=== PATIENT | male | born 1935 | race Caucasian/White ===

== ENCOUNTER → 2018-01-18 | Outpatient (CLI) | payer OTHER ==
--- NOTE | 2018-01-18 14:02 | XR ---
Cervical spine HISTORY: Neck pain, history of trauma 5 views of the cervical spine Comparison thoracic spine same date There is multilevel spondylosis. Multilevel facet arthropathy is present. Minimal anterolisthesis gra de 1 C4-5, C5-6. Loss of disc height is greatest at C2-3, C5-6 and C6-7. Prevertebral soft tissues sh ow atherosclerotic vascular calcifications likely within the carotids. Multilevel foraminal encroachm ent present at C4-5, C3-4, C5-6 bilaterally. IMPRESSION: Degenerative disc disease and facet arthropathy.
--- NOTE | 2018-01-18 14:07 | XR ---
Lumbosacral spine HISTORY: Low back pain 5 views of the lumbosacral spine There is multilevel spondylosis. Lumbar vertebral bodies show preserved height. Loss of disc height i s present at the intervertebral levels. No evident spondylolysis. Multilevel vacuum phenomenon presen t at the intervertebral levels. Minimal anterolisthesis grade 1 L4-5, retrolisthesis grade 1 L3-4, L2 -3, L1-2, T12-L1. Sclerosis present in the posterior elements. Dense vascular calcifications present in the aortoiliac distribution. IMPRESSION: Degenerative disc disease and facet arthropathy.
--- NOTE | 2018-01-18 14:08 | XR ---
Thoracic spine HISTORY: Back pain, trauma 3 views of the thoracic spine Multilevel spondylosis is present. Disc spaces show mild loss of height at the midthoracic level. Tho racic vertebral bodies show preserved height, alignment, bone mineralization. There may be a slight s june curvature. IMPRESSION: Degenerative disc disease. No fracture or subluxation.
--- NOTE | 2018-01-18 14:13 | XR ---
Right hand and right wrist HISTORY: Trauma and pain 3 views of the right hand correlated to 4 views right wrist same day Small periarticular ossific densities are present in the distribution the level of the metacarpophala ngeal joints of the second, third, fifth digits. Alignment, bone mineralization, joint spaces are jose e ntained. 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 There is scapholunate dissociation. IMPRESSION: No acute fracture or dislocation. Scapholunate dissociation of indeterminate age. Conside r wrist MRI. 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
== END | disposition home or self-care (01) ==
LOC: RADXRMAIN 10:12
PROVIDERS: ATTEND Nurse Practitioner Women's Health
DX: M51.34 Other intervertebral disc degeneration, thoracic region (principal); M51.37 Other intervertebral disc degeneration, lumbosacral region; M50.30 Other cervical disc degeneration, unspecified cervical region; M46.97 Unspecified inflammatory spondylopathy, lumbosacral region; M46.92 Unspecified inflammatory spondylopathy, cervical region; M25.531 Pain in right wrist; M79.641 Pain in right hand
CPT/HCPCS: 72050; 72072; 72110

== ENCOUNTER → 2018-02-02 | Outpatient (CLI) | payer MEDICARE, BC ==
--- NOTE | 2018-02-02 11:09 | US ---
EXAMINATION TYPE: US carotid duplex BILAT DATE OF EXAM: 02/02/2018 COMPARISON: cervical spine xray CLINICAL HISTORY: I65.29 occlusion and stenosis of unspecified. EXAM MEASUREMENTS: RIGHT: Peak Systolic Velocity (PSV) cm/sec ----- Right CCA: 73.8 ----- Right ICA: 92.2 ----- Right ECA: 84.0 ICA/CCA ratio: 1.25 RIGHT: End Diastole cm/sec ----- Right CCA: 12.0 ----- Right ICA: 26.4 ----- Right ECA: 5.3 LEFT: Peak Systolic Velocity (PSV) cm/sec ----- Left CCA: 71.1 ----- Left ICA: 102 ----- Left ECA: 92.5 ICA/CCA ratio: 1.43 LEFT: End Diastole cm/sec ----- Left CCA: 18.7 ----- Left ICA: 32.3 ----- Left ECA: 12.4 VERTEBRALS (direction of flow): Right Vertebral: Antegrade Left Vertebral: Antegrade Rhythm: Normal No significant stenosis seen, no elevated velocities. Extensive calcifications throughout. There is some filling of the left internal carotid artery acoustic window compatible with turbulent f low. IMPRESSION: 1. No significant flow-limiting stenosis. 2. Intimal thickening, atheromatous plaquing with shadowing. Criteria for Assigning % of Stenosis / Diameter reduction (Estimation based on the indirect measurements of the internal carotid artery velocities (ICA PSV). 1. Normal (no stenosis)=ICA PSV < 125 cm/s: ratio < 2.0: ICA EDV<40 cm/s. 2. Less than 50% stenosis=ICA PSV < 125 cm/s: ratio < 2.0: ICA EDV<40 cm/s. 3. 50 to 69% stenosis=ICA PSV of 125 to 230 cm/s: ration 2.0 ? 4.0: ICA EDV 40-100 cm/s. 4. Greater than 70% stenosis to near occlusion= ICA PSV > 230 cm/s: ratio > 4.0: ICA EDV > 100 cm/s. 5. Near occlusion= ICA PSV velocities may be low or undetectable: variable ratio and ICA EDV. 6. Total occlusion=unable to detect flow.
== END | disposition home or self-care (01) ==
LOC: RADUSWWP 10:19
PROVIDERS: ATTEND Family Medicine
DX: I65.22 Occlusion and stenosis of left carotid artery (principal); Z88.0 Allergy status to penicillin
CPT/HCPCS: 93880

== ENCOUNTER → 2019-04-12 | Outpatient (CLI) | payer MEDICARE, BC ==
--- NOTE | 2019-04-12 13:34 | XR ---
EXAMINATION TYPE: XR chest 2V DATE OF EXAM: 04/12/2019 COMPARISON: NONE TECHNIQUE: PA and lateral views submitted. HISTORY: Pain FINDINGS: The lungs are clear and there is no pneumothorax, pleural effusion, or focal pneumonia. Elevation t he right hemidiaphragm. Hyperinflation suggests COPD. Degenerative changes spine. Sclerosis overlying the heart on the lateral view is indeterminant. Arthropathy of the shoulder on the right. IMPRESSION: 1. No acute process. There is sclerosis overlying the heart on the lateral view which is of indetermi fabricio etiology. Follow-up CT of the chest could BE obtained as clinically warranted.
== END | disposition home or self-care (01) ==
LOC: RADXRMAIN 13:09
PROVIDERS: ATTEND Family Medicine
DX: I25.10 Atherosclerotic heart disease of native coronary artery without angina pectoris (principal)
CPT/HCPCS: 71046

== ENCOUNTER 2020-05-10 10:54 | Inpatient (IN) | payer MEDICARE, BC ==
[2020-05-10] MEDS ORDERED: SODIUM CHLORIDE 0.9% 500 ML 500 ML IV ONE (11:14)
--- NOTE | 2020-05-10 11:27 | ED ---
General Adult HPI - General Source: patient Mode of arrival: EMS Limitations: no limitations <Henrietta Grimes - Last Filed: 05/10/20 15:11> <Nicolasa Lujan - Last Filed: 05/15/20 09:43> - General Chief complaint: Weakness Stated complaint: Weakness,Altered Time Seen by Provider: 05/10/20 10:59 - History of Present Illness Initial comments: Patient is an 84-year-old male, with history of hypertension, thyroid disorder, mouth cancer, presenting to the emergency department via EMS from [facility] for altered mental status. The [place] reports stated that patient has been feeling weaker the last 2-3 days and not eating as much as he normally would. Today he seemed to be altered which is not his baseline, he was moving around his food but not eating and he was not answering questions appropriately so they called EMS. Patient is aware of his name and date of however does not know the month or year or who is President. Patient denies having any pain anywhere, no shortness of breath, no recent fevers. He denies any abdominal pain, nausea, vomiting. He denies any changes in his medications. There is no other family members here at this time to provide additional history. Patient's blood glucose in the EMS was 123, his vital signs upon arrival temperature is 96.9, pulse 80, 16 respirations, 173/83, 90% on room air. (Henrietta Grimes) - Related Data Home Medications Medication Instructions Recorded Confirmed Cyanocobalamin (Vitamin B-12) 1,000 mcg PO DAILY 05/10/20 05/10/20 [Vitamin B-12] Levothyroxine Sodium [Synthroid] 50 mcg PO DAILY 05/10/20 05/10/20 Loratadine [Claritin] 10 mg PO DAILY 05/10/20 05/10/20 Memantine HCl/Donepezil HCl 1 cap PO DAILY 05/10/20 05/10/20 [Namzaric 28 mg-10 mg Capsule] Metoprolol Tartrate [Lopressor] 25 mg PO BID 05/10/20 05/10/20 Omeprazole 40 mg PO DAILY 05/10/20 05/10/20 Allergies Allergy/AdvReac Type Severity Reaction Status Date / Time Penicillins Allergy Unknown Verified 05/10/20 13:54 Review of Systems ROS Other: All systems not noted in ROS Statement are negative. <Henrietta Grimes - Last Filed: 05/10/20 15:11> ROS Other: All systems not noted in ROS Statement are negative. <Nicolasa Lujan - Last Filed: 05/15/20 09:43> ROS Statement: Those systems with pertinent positive or pertinent negative responses have been documented in the HPI. 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 Patient is nontoxic and in no acu te distress, does seem mildly confused. HEAD: Atraumatic, normocephalic. EYES: Pupils equal round and reactive to light, extraocular movements intact, sclera anicteric, conjunctiva are normal. Eyelids were unremarkable. ENT: TMs normal, nares patent, oropharynx clear without exudates. Moist mucous membranes. NECK: Normal range of motion, supple without lymphadenopathy or JVD. LUNGS: Unlabored respirations. Mild scattered wheezes in the lower lobes, decreased sounds on the right. HEART: Regular rate and rhythm without murmurs, rubs or gallops. ABDOMEN: Soft, nontender, normoactive bowel sounds. No guarding, no rebound. No masses appreciated. : Deferred MUSCULOSKELETAL: Normal extremities with adequate strength and normal range of motion, no pitting or edema. No clubbing or cyanosis. 5 out of 5 strength upper and lower extremities bilaterally, senior consulting manager strength is normal bilaterally. NEUROLOGICAL: Patient is alert and oriented x 1-2. Does know self, date of , location however does not know year or month or the president. Motor and sensory are also intact. Cranial nerves II through XII grossly intact. Symmetrical smile. Normal speech, normal gait. PSYCH: Normal mood, normal affect, seems altered. SKIN: Warm, Dry, normal turgor, no rashes or lesions noted. (Henrietta Grimes) Course Vital Signs 05/10/20 05/10/20 05/10/20 11:03 11:10 11:30 Temperature 96.9 F L Pulse Rate 80 80 Pulse Rate [ Pulse Oximetery ] Respiratory 16 16 Rate Blood Pressure 173/83 178/83 Blood Pressure [Left Arm] O2 Sat by Pulse 90 L 94 L Oximetry 05/10/20 05/10/20 05/10/20 13:00 13:30 14:30 Temperature Pulse Rate 67 73 80 Pulse Rate [ Pulse Oximetery ] Respiratory 14 18 22 Rate Blood Pressure 143/80 164/113 158/82 Blood Pressure [Left Arm] O2 Sat by Pulse 93 L 93 L 92 L Oximetry 05/10/20 05/10/20 05/10/20 15:00 15:30 16:00 Temperature Pulse Rate 80 87 65 Pulse Rate [ Pulse Oximetery ] Respiratory 17 20 20 Rate Blood Pressure 127/80 140/82 134/65 Blood Pressure [Left Arm] O2 Sat by Pulse 93 L 66 L 96 Oximetry 05/10/20 05/10/20 05/10/20 16:30 17:30 18:00 Temperature Pulse Rate 66 67 61 Pulse Rate [ Pulse Oximetery ] Respiratory 18 16 13 Rate Blood Pressure 144/82 126/69 126/69 Blood Pressure [Left Arm] O2 Sat by Pulse 74 L 91 L 93 L Oximetry 05/10/20 05/10/20 05/10/20 19:00 20:00 22:55 Temperature 97.3 F L 97 F L Pulse Rate 60 65 Pulse Rate [ 60 Pulse Oximetery ] Respiratory 18 20 Rate Blood Pressure 131/58 152/69 Blood Pressure 131/58 [Left Arm] O2 Sat by Pulse 92 L 92 L 93 L Oximetry 05/11/20 02:00 Temperature 97.0 F L Pulse Rate Pulse Rate [ 92 Pulse Oximetery ] Respiratory 18 Rate Blood Pressure Blood Pressure 131/58 [Left Arm] O2 Sat by Pulse 93 L Oximetry EKG Findings - EKG Comments: EKG Findings:: Normal sinus rhythm, rightward axis, septal infarct age undetermined, no signs of an acute process, ventricular rate 77, ND interval 206, QT 410. <SydneyHenrietta L - Last Filed: 05/10/20 15:11> Medical Decision Making - Lab Data Result diagrams: 05/10/20 11:23 05/10/20 11:23 <SydneyHenrietta - Last Filed: 05/10/20 15:11> - Lab Data Result diagrams: 05/13/20 06:38 05/13/20 06:38 <LeNicolasa Cristi - Last Filed: 05/15/20 09:43> - Medical Decision Making Patient is an 84-year-old male presenting from [facility] via EMS for altered mental status and weakness for the past 2 days. He is an alert and oriented times self, location but is unaware of the date, year or president. He is afebrile. His exam reveals no acute findings, no neuro deficits. EKG shows no acute process. Lab work shows a normal white count, creatinine is at 2.30, BUN is 59, GFR is 25, I do not have any prior lab work to compare this to. According to his son, he has no known kidney disease. Troponin is negative, sodium potassium is normal, urine tox screen is negative, urine shows no evidence of infection. Brain CT shows no acute intercranial hemorrhage or midline shift. There are chronic changes. Chest x-ray reveals new bilateral multifocal acute infiltrates, right greater than left. Cold infection should be considered. I did do a rapid Covid test which did return positive. Patient was given some fluids. Patient will be admitted for altered mental status, acute kidney injury, hypoxia, positive Covid. Patient accepted by Dr. Cadena. Patient is in agreement with this plan of care. I did update his son with the plan. Case discussed with Dr. Lujan. (Henrietta Grimes) I was available for consultation in the emergency department. The history and physical exam were done by the midlevel provider. I was consulted for this patients care. I reviewed the case with the midlevel provider and based on their presentation of the patient, I agree with the assessment, medical decision making and plan of care as documented. Chart was dictated using [employer] dictation software. Attempts were made to correct any dictation errors however some typographical errors may persist. Patient seen during the Covid-19 pandemic. (Nicolasa Lujan) - Lab Data Lab Results 05/10/20 05/10/20 05/10/20 Range/Units 11:23 11:23 11:23 WBC 5.5 (3.8-10.6) k/uL RBC 5.63 (4.30-5.90) m/uL Hgb 16.0 (13.0-17.5) gm/dL Hct 48.8 (39.0-53.0) % MCV 86.7 (80.0-100.0) fL MCH 28.5 (25.0-35.0) pg MCHC 32.8 (31.0-37.0) g/dL RDW 14.2 (11.5-15.5) % Plt Count (150-450) k/uL MPV 12.0 Lymphocytes % 14 % Monocytes % 6 % Eosinophils % 1 % Basophils % 1 % Neutrophils # 4.2 (1.3-7.7) k/uL Lymphocytes # 0.8 L (1.0-4.8) k/uL Monocytes # 0.3 (0-1.0) k/uL Eosinophils # 0.1 (0-0.7) k/uL Basophils # 0.1 (0-0.2) k/uL Manual Slide Review Performed RBC Morphology Normal PT 11.3 (9.0-12.0) sec INR 1.1 (<1.2) APTT 20.9 L (22.0-30.0) sec Sodium (137-145) mmol/L Potassium (3.5-5.1) mmol/L Chloride (98-107) mmol/L Carbon Dioxide (22-30) mmol/L Anion Gap mmol/L BUN (9-20) mg/dL Creatinine (0.66-1.25) mg/dL Est GFR (CKD-EPI)AfAm (>60 ml/min/1.73 sqM) Est GFR (CKD-EPI)NonAf (>60 ml/min/1.73 sqM) Glucose (74-99) mg/dL Calcium (8.4-10.2) mg/dL Total Bilirubin (0.2-1.3) mg/dL AST (17-59) U/L ALT (4-49) U/L Alkaline Phosphatase (38-126) U/L Creatine Kinase (55-170) U/L Troponin I (0.000-0.034) ng/mL Total Protein (6.3-8.2) g/dL Albumin (3.5-5.0) g/dL Urine Color Yellow Urine Appearance Clear (Clear) Urine pH 5.5 (5.0-8.0) Ur Specific [place] 1.020 (1.001-1.035) Urine Protein 1+ H (Negative) Urine Glucose (UA) Negative (Negative) Urine Ketones 1+ H (Negative) Urine Blood Small H (Negative) Urine Nitrite Negative (Negative) Urine Bilirubin Negative (Negative) Urine Urobilinogen <2.0 (<2.0) mg/dL Ur Leukocyte Esterase Negative (Negative) Urine RBC <1 (0-5) /hpf Urine WBC 1 (0-5) /hpf Ur Squamous Epith Cells <1 (0-4) /hpf Urine Mucus Rare H (None) /hpf Urine Opiates Screen Not Detected (NotDetected) Ur Oxycodone Screen Not Detected (NotDetected) Urine Methadone Screen Not Detected (NotDetected) Ur Propoxyphene Screen Not Detected (NotDetected) Ur Barbiturates Screen Not Detected (NotDetected) U Tricyclic Antidepress Not Detected (NotDetected) Ur Phencyclidine Scrn Not Detected (NotDetected) Ur Amphetamines Screen Not Detected (NotDetected) U Methamphetamines Scrn Not Detected (NotDetected) U Benzodiazepines Scrn Not Detected (NotDetected) Urine Cocaine Screen Not Detected (NotDetected) U Marijuana (THC) Screen Not Detected (NotDetected) Coronavirus (PCR) (Not Detectd) 05/10/20 05/10/20 05/10/20 Range/Units 11:23 11:23 13:25 WBC (3.8-10.6) k/uL RBC (4.30-5.90) m/uL Hgb (13.0-17.5) gm/dL Hct (39.0-53.0) % MCV (80.0-100.0) fL MCH (25.0-35.0) pg MCHC (31.0-37.0) g/dL RDW (11.5-15.5) % Plt Count (150-450) k/uL MPV Lymphocytes % % Monocytes % % Eosinophils % % Basophils % % Neutrophils # (1.3-7.7) k/uL Lymphocytes # (1.0-4.8) k/uL Monocytes # (0-1.0) k/uL Eosinophils # (0-0.7) k/uL Basophils # (0-0.2) k/uL Manual Slide Review RBC Morphology PT (9.0-12.0) sec INR (<1.2) APTT (22.0-30.0) sec Sodium 141 (137-145) mmol/L Potassium 4.9 (3.5-5.1) mmol/L Chloride 106 (98-107) mmol/L Carbon Dioxide 20 L (22-30) mmol/L Anion Gap 15 mmol/L BUN 59 H (9-20) mg/dL Creatinine 2.30 H (0.66-1.25) mg/dL Est GFR (CKD-EPI)AfAm 29 (>60 ml/min/1.73 sqM) Est GFR (CKD-EPI)NonAf 25 (>60 ml/min/1.73 sqM) Glucose 98 (74-99) mg/dL Calcium 9.6 (8.4-10.2) mg/dL Total Bilirubin 1.7 H (0.2-1.3) mg/dL AST 37 (17-59) U/L ALT 27 (4-49) U/L Alkaline Phosphatase 132 H (38-126) U/L Creatine Kinase 95 (55-170) U/L Troponin I <0.012 (0.000-0.034) ng/mL Total Protein 7.4 (6.3-8.2) g/dL Albumin 4.1 (3.5-5.0) g/dL Urine Color Urine Appearance (Clear) Urine pH (5.0-8.0) Ur Specific [place] (1.001-1.035) Urine Protein (Negative) Urine Glucose (UA) (Negative) Urine Ketones (Negative) Urine Blood (Negative) Urine Nitrite (Negative) Urine Bilirubin (Negative) Urine Urobilinogen (<2.0) mg/dL Ur Leukocyte Esterase (Negative) Urine RBC (0-5) /hpf Urine WBC (0-5) /hpf Ur Squamous Epith Cells (0-4) /hpf Urine Mucus (None) /hpf Urine Opiates Screen (NotDetected) Ur Oxycodone Screen (NotDetected) Urine Methadone Screen (NotDetected) Ur Propoxyphene Screen (NotDetected) Ur Barbiturates Screen (NotDetected) U Tricyclic Antidepress (NotDetected) Ur Phencyclidine Scrn (NotDetected) Ur Amphetamines Screen (NotDetected) U Methamphetamines Scrn (NotDetected) U Benzodiazepines Scrn (NotDetected) Urine Cocaine Screen (NotDetected) U Marijuana (THC) Screen (NotDetected) Coronavirus (PCR) Detected A (Not Detectd) Disposition Decision Date: 05/10/20 Decision Time: 13:56 <Henrietta Grimes - Last Filed: 05/10/20 15:11> <Nicolasa Lujan - Last Filed: 05/15/20 09:43> Clinical Impression: Altered mental status, [place] (acute kidney injury), COVID-19 virus detected, Hypoxia Disposition: ADMITTED IP TO THIS HOSP Condition: Good
[2020-05-10 12:22] LABS: Albumin 4.1 g/dL (3.5-5.0); Calcium 9.6 mg/dL (8.4-10.2); Potassium 4.9 mmol/L (3.5-5.1); Total Bilirubin 1.7 mg/dL (0.2-1.3); Total Protein 7.4 g/dL (6.3-8.2)
[2020-05-10 12:27] LABS: Appearance,Urine Clear (Clear); Bilirubin,Urine Negative (Negative); Blood,Urine Small (Negative); Color,Urine Yellow; Glucose,Urine (UA) Negative (Negative); Ketones,Urine 1+ (Negative); Leukocyte Esterase,Urine Negative (Negative); Mucus,Urine Rare /hpf; Nitrite,Urine Negative (Negative); PH, Urine 5.5 (5.0-8.0); Protein,Urine 1+ (Negative); RBC,Urine <1 /hpf (0-5); Squamous Epithelial Cell,Urine <1 /hpf (0-4); Urobilinogen,Urine <2.0 mg/dL (<2.0); WBC,Urine 1 /hpf (0-5)
--- NOTE | 2020-05-10 12:28 | CT ---
EXAMINATION TYPE: CT brain wo con DATE OF EXAM: 05/10/2020 HISTORY: ALtered mental status and increased weakness CT DLP: 1129.4 mGycm. Automated Exposure Control for Dose Reduction was Utilized. TECHNIQUE: CT scan of the head is performed without contrast. COMPARISON: None. FINDINGS: There is no acute intracranial hemorrhage or midline shift identified. There is diffuse v entricular and sulcal prominence consistent with diffuse age-related cerebral atrophy. There is low- attenuation in the periventricular white matter consistent with chronic small vessel ischemic change. Scleral calcification bilateral globes. Patchy cerumen right external auditory canal. Mild mucosal thickening left maxillary sinus. IMPRESSION: No acute intracranial hemorrhage or midline shift. There is moderate diffuse cerebral a trophy and mild chronic small vessel ischemic change noted.
--- NOTE | 2020-05-10 12:47 | XR ---
EXAMINATION TYPE: XR chest 2V DATE OF EXAM: 05/10/2020 COMPARISON: Chest x-ray April 12, 2019 HISTORY: Altered mental status and weakness. TECHNIQUE: Frontal and lateral views of the chest are obtained. FINDINGS: There a reticular interstitial changes bilaterally with increased opacities right greater than left greater in the periphery. No pleural effusion or pneumothorax seen bilaterally. The cardiac silhouette size is upper limits of normal currently. The osseous structures are intact. IMPRESSION: New bilateral multifocal acute infiltrates right greater than left on background chronic parenchymal changes. Covid-19 infection needs to be strongly considered.
[2020-05-10 12:48] LABS: Amphetamine Screen,Urine Not Detected (NotDetected); Barbiturate Screen,Urine Not Detected (NotDetected); Benzodiazepines Screen,Urine Not Detected (NotDetected); Cocaine Screen,Urine Not Detected (NotDetected); Methadone Screen, Urine Not Detected (NotDetected); Opiate Screen,Urine Not Detected (NotDetected); Oxycodone Screen, Urine Not Detected (NotDetected); Phencyclidine Screen,Urine Not Detected (NotDetected); Tricyclic Antidepressant,Urine Not Detected (NotDetected); Urn Cannabinoid Scrn Not Detected (NotDetected)
[2020-05-10 12:54] LABS: INR 1.1 (<1.2); Prothrombin Time 11.3 sec (9.0-12.0)
[2020-05-10 12:55] LABS: Partial Thromboplastin Time 20.9 sec (22.0-30.0)
[2020-05-10 13:00] LABS: Basophils # (A) 0.1 k/uL (0-0.2); Basophils % (A) 1 %; Eosinophils # (A) 0.1 k/uL (0-0.7); Eosinophils % (A) 1 %; HCT 48.8 % (39.0-53.0); Lymphocytes # (A) 0.8 k/uL (1.0-4.8); Lymphocytes % (A) 14 %; MCH 28.5 pg (25.0-35.0); MCHC 32.8 g/dL (31.0-37.0); MCV 86.7 fL (80.0-100.0); Monocytes # (A) 0.3 k/uL (0-1.0); Monocytes % (A) 6 %; Neutrophils # (A) 4.2 k/uL (1.3-7.7); RBC 5.63 m/uL (4.30-5.90); RDW 14.2 % (11.5-15.5); WBC 5.5 k/uL (3.8-10.6)
[2020-05-10] MEDS ORDERED: NALOXONE 0.4 MG/ML 1 ML VIAL IV PRN (13:56)
[2020-05-10] MEDS ORDERED: ACETAMINOPHEN TAB 325 MG TAB PO PRN (13:56)
[2020-05-10] MEDS: SODIUM CHLORIDE 0.9% 1,000 ML IV SCH (15:55)
[2020-05-11] MEDS: SODIUM CHLORIDE 0.9% 1,000 ML IV SCH ×2 (04:17→20:27)
--- NOTE | 2020-05-11 11:16 | P.CNPUL ---
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 dementia and Alzheimer's disease, his BUN/creatinine is 59 and 2.3, warner virus PCR positive, CT head chronic old cerebral atrophic and small vascular changes were noted, chest x-ray showed bilateral multifocal patchy infiltrate right side more than the left side consistent with covid 19 pneumonia Review of Systems All systems: negative Past Medical History Past Medical History: Cancer, Hyperlipidemia, Hypertension, Thyroid Disorder Additional Past Medical History / Comment(s): HX OF MOUTH CANCER, HX GOUT, LEFT INGUINAL HERNIA History of Any Multi-Drug Resistant Organisms: None Reported Additional Past Surgical History / Comment(s): SX TO REMOVE ORAL CA, EGD WITH DILATION, ABHAY CATARACT Past Anesthesia/Blood Transfusion Reactions: No Reported Reaction Past Alcohol Use History: Occasional Past Drug Use History: None Reported - Past Family History Mother Family Medical History: No Reported History Medications and Allergies Home Medications Medication Instructions Recorded Confirmed Type Cyanocobalamin (Vitamin B-12) 1,000 mcg PO DAILY 05/10/20 05/10/20 History [Vitamin B-12] Levothyroxine Sodium [Synthroid] 50 mcg PO DAILY 05/10/20 05/10/20 History Loratadine [Claritin] 10 mg PO DAILY 05/10/20 05/10/20 History Memantine HCl/Donepezil HCl 1 cap PO DAILY 05/10/20 05/10/20 History [Namzaric 28 mg-10 mg Capsule] Metoprolol Tartrate [Lopressor] 25 mg PO BID 05/10/20 05/10/20 History Omeprazole 40 mg PO DAILY 05/10/20 05/10/20 History Allergies Allergy/AdvReac Type Severity Reaction Status Date / Time Penicillins Allergy Unknown Verified 05/10/20 13:54 Physical Exam Vitals: Vital Signs Temp Pulse Pulse Resp BP BP Pulse Ox 11/29/20 08:00 97.9 F 70 17 138/73 93 L 05/11/20 02:00 97.0 F L 92 18 131/58 93 L 05/10/20 22:55 97 F L 65 152/69 93 L 05/10/20 20:00 97.3 F L 60 20 131/58 92 L 05/10/20 19:00 60 18 131/58 92 L 05/10/20 18:00 61 13 126/69 93 L 05/10/20 17:30 67 16 126/69 91 L 05/10/20 16:30 66 18 144/82 74 L 05/10/20 16:00 65 20 134/65 96 05/10/20 15:30 87 20 140/82 66 L 05/10/20 15:00 80 17 127/80 93 L 05/10/20 14:30 80 22 158/82 92 L 05/10/20 13:30 73 18 164/113 93 L 05/10/20 13:00 67 14 143/80 93 L 05/10/20 11:30 80 16 178/83 94 L 05/10/20 11:10 90 L - Constitutional General appearance: average body habitus, cooperative, disheveled, mild distress - EENT Eyes: PERRLA Ears: bilateral: normal - Neck Carotids: bilateral: upstroke normal Thyroid: bilateral: normal size - Respiratory Respiratory: bilateral: diminished - Cardiovascular Rhythm: regular Heart sounds: normal: S1, S2 - Gastrointestinal General gastrointestinal: normal bowel sounds, soft - Integumentary Integumentary: decreased turgor - Neurologic Neurologic: CNII-XII intact - Musculoskeletal Musculoskeletal: gait normal, generalized weakness, strength equal bilaterally Results - Laboratory Findings CBC and BMP: 05/10/20 11:23 05/10/20 11:23 PT/INR, D-dimer PT 11.3 sec (9.0-12.0) 05/10/20 11:23 INR 1.1 (<1.2) 05/10/20 11:23 Abnormal lab findings: Abnormal Labs 05/10/20 05/10/20 05/10/20 11:23 11:23 11:23 Lymphocytes # 0.8 L APTT 20.9 L Carbon Dioxide BUN Creatinine Total Bilirubin Alkaline Phosphatase Urine Protein 1+ H Urine Ketones 1+ H Urine Blood Small H Urine Mucus Rare H Coronavirus (PCR) 05/10/20 05/10/20 11:23 13:25 Lymphocytes # APTT Carbon Dioxide 20 L BUN 59 H Creatinine 2.30 H Total Bilirubin 1.7 H Alkaline Phosphatase 132 H Urine Protein Urine Ketones Urine Blood Urine Mucus Coronavirus (PCR) Detected A - Diagnostic Findings Chest x-ray: report reviewed, image reviewed (Pending as noted above) Assessment and Plan Assessment: Acute hypoxic history failure [place] in 19 pneumonia bilateral Acute kidney injury likely related to intravascular depletion and dehydration Hypertension hypertensive cardiovascular disease Hypothyroidism History of oral cancer Plan: Check inflammatory parameters Deep breathing sense incentive spirometry Prone positioning IV Decadron IV Remdesivir for 5 days Supplemental oxygen Gentle rehydration Monitor renal functions closely Anticoagulation with Lovenox Check inflammatory parameters Zinc vitamin C and vitamin D supplements Further recommendations pending plan of care as per clinical response of patient Time with Patient: Greater than 30
--- NOTE | 2020-05-11 11:21 | P.HPIM ---
History of Present Illness H&P Date: 05/11/20 Chief Complaint: Weakness and anorexia,COVID 19 This is a pleasant 84-year-old male who [facility]. He is brought over the EMS for anorexia and low-grade fever along with weakness. He is somewhat confused when he is in the emergency room as he is today. Initial evaluation showed some mild hypoxia with O2 saturation 90%. Blood pressure remained stable. He is been afebrile. He was found to be in mild renal failure with a BUN of 59 creatinine 2.3, urine showed +1 ketones, and he was positive for warner virus the emergency room. This a.m., the patient is somewhat confused. Answers my questions. He has known dementia and hypothyroidism. Chest x-ray showed Covid pneumonia type picture. CT brain showed no acute intracranial hemorrhage but diffuse cerebral atrophy and mild chronic small vessel ischemic change. The patient denies any chest pains or pressures or shortness of breath this time. Repeat a.m. labs are pending. His next of kin, friend is also my patient, and was also admitted with Covid 19 pneumonia yesterday. Review of Systems ROS unobtainable: due to mental status Past Medical History Past Medical History: Cancer, Hyperlipidemia, Hypertension, Thyroid Disorder Additional Past Medical History / Comment(s): HX OF MOUTH CANCER, HX GOUT, LEFT INGUINAL HERNIA History of Any Multi-Drug Resistant Organisms: None Reported Additional Past Surgical History / Comment(s): SX TO REMOVE ORAL CA, EGD WITH DILATION, ABHAY CATARACT Past Anesthesia/Blood Transfusion Reactions: No Reported Reaction Past Alcohol Use History: Occasional Past Drug Use History: None Reported - Past Family History Mother Family Medical History: No Reported History Medications and Allergies Home Medications Medication Instructions Recorded Confirmed Type Cyanocobalamin (Vitamin B-12) 1,000 mcg PO DAILY 05/10/20 05/10/20 History [Vitamin B-12] Levothyroxine Sodium [Synthroid] 50 mcg PO DAILY 05/10/20 05/10/20 History Loratadine [Claritin] 10 mg PO DAILY 05/10/20 05/10/20 History Memantine HCl/Donepezil HCl 1 cap PO DAILY 05/10/20 05/10/20 History [Namzaric 28 mg-10 mg Capsule] Metoprolol Tartrate [Lopressor] 25 mg PO BID 05/10/20 05/10/20 History Omeprazole 40 mg PO DAILY 05/10/20 05/10/20 History Allergies Allergy/AdvReac Type Severity Reaction Status Date / Time Penicillins Allergy Unknown Verified 05/10/20 13:54 Physical Exam Vitals: Vital Signs Temp Pulse Pulse Resp BP BP Pulse Ox 05/11/20 08:00 97.9 F 70 17 138/73 93 L 05/11/20 02:00 97.0 F L 92 18 131/58 93 L 05/10/20 22:55 97 F L 65 152/69 93 L 05/10/20 20:00 97.3 F L 60 20 131/58 92 L 05/10/20 19:00 60 18 131/58 92 L 05/10/20 18:00 61 13 126/69 93 L 05/10/20 17:30 67 16 126/69 91 L 05/10/20 16:30 66 18 144/82 74 L 05/10/20 16:00 65 20 134/65 96 05/10/20 15:30 87 20 140/82 66 L 05/10/20 15:00 80 17 127/80 93 L 05/10/20 14:30 80 22 158/82 92 L 05/10/20 13:30 73 18 164/113 93 L 05/10/20 13:00 67 14 143/80 93 L 05/10/20 11:30 80 16 178/83 94 L 05/10/20 11:10 90 L GENERAL: Confused, thin male, with some perspiration noted. HEAD: Atraumatic, normocephalic. EYES: Pupils equal round and reactive to light, extraocular movements intact, sclera anicteric, conjunctiva are normal. ENT:nares patent, oropharynx clear without exudates. Moist mucous membranes. NECK: Normal range of motion, supple without lymphadenopathy or JVD, no thyromegaly LUNGS: Breath sounds coarse bilateral basilar rhonchi bilaterally worse on the left.. HEART: Regular rate and rhythm without murmurs, rubs or gallops.S1S2 Normal ABDOMEN: Soft, nontender, normoactive bowel sounds. No guarding, no rebound. No masses appreciated. EXTREMITIES: Normal range of motion, no pitting or edema. No clubbing or cyanosis. NEUROLOGICAL: Cranial nerves II through XII grossly intact. Speech is normal in content, he has underlying dementia that is well-known. PSYCH: Normal mood, normal affect. SKIN: Warm, Dry, normal turgor, no rashes or lesions noted. Results CBC & Chem 7: 05/10/20 11:23 05/10/20 11:23 Labs: Abnormal Lab Results - Last 24 Hours (Table) 05/10/20 05/10/20 05/10/20 Range/Units 11:23 11:23 11:23 Lymphocytes # 0.8 L (1.0-4.8) k/uL APTT 20.9 L (22.0-30.0) sec Carbon Dioxide (22-30) mmol/L BUN (9-20) mg/dL Creatinine (0.66-1.25) mg/dL Total Bilirubin (0.2-1.3) mg/dL Alkaline Phosphatase (38-126) U/L Urine Protein 1+ H (Negative) Urine Ketones 1+ H (Negative) Urine Blood Small H (Negative) Urine Mucus Rare H (None) /hpf Coronavirus (PCR) (Not Detectd) 05/10/20 05/10/20 Range/Units 11:23 13:25 Lymphocytes # (1.0-4.8) k/uL APTT (22.0-30.0) sec Carbon Dioxide 20 L (22-30) mmol/L BUN 59 H (9-20) mg/dL Creatinine 2.30 H (0.66-1.25) mg/dL Total Bilirubin 1.7 H (0.2-1.3) mg/dL Alkaline Phosphatase 132 H (38-126) U/L Urine Protein (Negative) Urine Ketones (Negative) Urine Blood (Negative) Urine Mucus (None) /hpf Coronavirus (PCR) Detected A (Not Detectd) Chest x-ray: report reviewed (COVID pneumonia) CT Scan - head: report reviewed (no acute abnormality) Thrombosis Risk Factor Assmnt - DVT/VTE Prophylaxis DVT/VTE Prophylaxis: Pharmacologic Prophylaxis ordered Assessment and Plan (1) Pneumonia due to COVID-19 virus Current Visit: Yes Status: Acute Code(s): U07.1 - COVID-19; J12.89 - OTHER VIRAL PNEUMONIA SNOMED Code(s): 735357424969371256 (2) D[place] (acute kidney injury) Current Visit: Yes Status: Acute Code(s): N17.9 - ACUTE KIDNEY FAILURE, UNSPECIFIED SNOMED Code(s): 02466004 (3) Unspecified dementia with behavioral disturbance Current Visit: Yes Status: Acute Code(s): F03.91 - UNSPECIFIED DEMENTIA WITH BEHAVIORAL DISTURBANCE SNOMED Code(s): 5822758400531 (4) Hypothyroidism, unspecified Current Visit: Yes Status: Acute Code(s): E03.9 - HYPOTHYROIDISM, UNSPECIFIED SNOMED Code(s): 22885703 (5) COVID-19 virus detected Current Visit: Yes Status: Acute Code(s): U07.1 - COVID-19 SNOMED Code(s): 2580334472678199 (6) Hypoxia Current Visit: Yes Status: Acute Code(s): R09.02 - HYPOXEMIA SNOMED Code(s): 943913097 Plan: Gentle fluid hydration. We'll monitor and recheck his kidney function Place him on the covid 19 protocol. Consult pulmonology, Dr. Garcia for aid with managing his Covid 19 infection. Repeat labs in a.m. Reevaluate in the next 24 hours.
[2020-05-11] MEDS ORDERED: REMDESIVIR 200 MG in SODIUM CHLORIDE 0.9% 250 ML IVPB ONE (13:00)
[2020-05-11] MEDS: ENOXAPARIN 40 MG/0.4 ML SYRINGE SQ SCH (14:10)
[2020-05-11] MEDS: CYANOCOBALAMIN 500 MCG TAB PO SCH (14:10)
[2020-05-11] MEDS: dexAMETHasone 2 MG TAB PO SCH (14:10)
[2020-05-11] MEDS: METOPROLOL TARTRATE 25 MG TAB PO SCH ×2 (14:10→20:33)
[2020-05-11] MEDS: MEMANTINE 10 MG TAB PO SCH (20:28)
[2020-05-12] MEDS: SODIUM CHLORIDE 0.9% 1,000 ML IV SCH ×2 (05:20→21:13)
[2020-05-12] MEDS: LEVOTHYROXINE 50 MCG TAB PO SCH (05:23)
[2020-05-12] MEDS: ASCORBIC ACID 500 MG TAB PO SCH (08:51)
[2020-05-12] MEDS: ENOXAPARIN 40 MG/0.4 ML SYRINGE SQ SCH (08:52)
[2020-05-12] MEDS: MEMANTINE 10 MG TAB PO SCH ×2 (08:52→21:13)
[2020-05-12] MEDS: DONEPEZIL 10 MG TAB PO SCH (08:52)
[2020-05-12] MEDS: CYANOCOBALAMIN 500 MCG TAB PO SCH (08:52)
[2020-05-12] MEDS: dexAMETHasone 2 MG TAB PO SCH (08:52)
[2020-05-12] MEDS: ZINC SULFATE 220 MG CAP PO SCH (08:52)
[2020-05-12] MEDS: METOPROLOL TARTRATE 25 MG TAB PO SCH ×2 (08:52→21:13)
[2020-05-12 09:49] LABS: African American GFR (CKD) 49.2 (60.0-200.0); Anion Gap 13.2 mmol/L (4.00-12.00); Calcium 8.8 mg/dL (8.7-10.3); Carbon Dioxide 18.8 mmol/L (21.6-31.8); Non-African American GFR(CKD) 42.4 (60.0-200.0); Potassium 4.8 mmol/L (3.5-5.5)
--- NOTE | 2020-05-12 11:44 | P.PN ---
Subjective Progress Note Date: 05/12/20 Principal diagnosis: Acute hypoxic history failure [place] in 19 pneumonia bilateral Acute kidney injury likely related to intravascular depletion and dehydration Hypertension hypertensive cardiovascular disease Hypothyroidism History of oral cancer 05/12/2020, patient seen eval examined during the rounds labs reviewed medications reviewed shortness of breath still there on 2 L oxygen, confusion stable somewhat agitated but mental status have improved compared, bedside sit ter is present, BUN/creatinine improved to 48 and 1.5, This is a 84-year-old male resident of a residential, came into the hospital with altered mental status, for the last 3 days patient has not been eating very weak fatigued and tired, EMS was notified brought into the hospital for further evaluation, his saturation on room air was 90%, afebrile no arrival, patient has significant history of oral cancer, 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 dementia and Alzheimer's disease, his BUN/creatinine is 59 and 2.3, warner virus PCR positive, CT head chronic old cerebral atrophic and small vascular changes were noted, chest x-ray showed bilateral multifocal patchy infiltrate right side more than the left side consistent with covid 19 pneumonia Objective - Vital Signs Vital signs: Vital Signs Temp 97.3 F L 05/12/20 07:56 Pulse 51 L 05/12/20 07:56 Resp 18 05/12/20 07:56 BP 159/62 05/12/20 07:56 Pulse Ox 95 05/12/20 07:56 Intake & Output 05/11/20 05/12/20 05/12/20 18:59 06:59 18:59 Weight 73.028 kg Other: Voiding Method Urinal Urinal Urinal Diaper Diaper Diaper Incontinent Incontinent Incontinent # Voids 2 # Bowel Movements 1 - Exam - Constitutional General appearance: average body habitus, cooperative, disheveled, mild distress - EENT Eyes: PERRLA Ears: bilateral: normal - Neck Carotids: bilateral: upstroke normal Thyroid: bilateral: normal size - Respiratory Respiratory: bilateral: diminished - Cardiovascular Rhythm: regular Heart sounds: normal: S1, S2 - Gastrointestinal General gastrointestinal: normal bowel sounds, soft - Integumentary Integumentary: decreased turgor - Neurologic Neurologic: CNII-XII intact - Musculoskeletal Musculoskeletal: gait normal, generalized weakness, strength equal bilaterally - Labs CBC & Chem 7: 05/10/20 11:23 05/12/20 05:36 Labs: Abnormal Lab Results - Last 24 Hours (Table) 05/12/20 Range/Units 05:36 Carbon Dioxide 18.8 L (21.6-31.8) mmol/L Anion Gap 13.20 H (4.00-12.00) mmol/L BUN 48.0 H (9.0-27.0) mg/dL Est GFR (CKD-EPI)AfAm 49.2 L (60.0-200.0) Est GFR (CKD-EPI)NonAf 42.4 L (60.0-200.0) BUN/Creatinine Ratio 32.00 H (12.00-20.00) Ratio Glucose 133 H (70-110) mg/dL Assessment and Plan Assessment: Acute hypoxic history failure [place] in 19 pneumonia bilateral Acute kidney injury likely related to intravascular depletion and dehydration Hypertension hypertensive cardiovascular disease Hypothyroidism History of oral cancer Plan: Check inflammatory parameters Deep breathing sense incentive spirometry Prone positioning IV Decadron IV Remdesivir for 5 days Supplemental oxygen Gentle rehydration Monitor renal functions closely Anticoagulation with Lovenox Check inflammatory parameters Zinc vitamin C and vitamin D supplements Further recommendations pending plan of care as per clinical response of patient Time with Patient: Greater than 30
[2020-05-12] MEDS: REMDESIVIR 100 MG in SODIUM CHLORIDE 0.9% 250 ML IVPB SCH (12:17)
--- NOTE | 2020-05-12 14:34 | P.PN ---
Subjective Progress Note Date: 05/12/20 This is a pleasant 84-year-old male who lives [facility]. He is brought over the EMS for anorexia and low-grade fever along with weakness. He is somewhat confused when he is in the emergency room as he is today. Initial evaluation showed some mild hypoxia with O2 saturation 90%. Blood pressure remained stable. He is been afebrile. He was found to be in mild renal failure with a BUN of 59 creatinine 2.3, urine showed +1 ketones, and he was positive for warner virus the emergency room. This a.m., the patient is somewhat confused. Answers my questions. He has known dementia and hypothyroidism. Chest x-ray showed Covid pneumonia type picture. CT brain showed no acute intracranial hemorrhage but diffuse cerebral atrophy and mild chronic small vessel ischemic change. The patient denies any chest pains or pressures or shortness of breath this time. Repeat a.m. labs are pending. His next of kin, friend is also my patient, and was also admitted with Covid 19 pneumonia yesterday. 05/12/2020 continues on Covid regimen including Remdesivir. Renal function improving. Sitter at bedside. Maintaining O2 sats in the 90s on 2 L nasal cannula. Afebrile. Objective - Vital Signs Vital signs: Vital Signs Temp 97.3 F L 05/12/20 07:56 Pulse 51 L 05/12/20 07:56 Resp 18 05/12/20 07:56 BP 159/62 05/12/20 07:56 Pulse Ox 95 05/12/20 07:56 Intake & Output 05/11/20 05/12/20 05/12/20 18:59 06:59 18:59 Weight 73.028 kg Other: Voiding Method Urinal Urinal Urinal Diaper Diaper Diaper Incontinent Incontinent Incontinent # Voids 2 1 # Bowel Movements 1 1 - Exam GENERAL: Confused, thin male, alert and oriented 1, sitting up at bedside, calm HEAD: Atraumatic, normocephalic. EYES: Pupils equal round and reactive to light, extraocular movements intact, sclera anicteric, conjunctiva are normal. ENT:nares patent, oropharynx clear without exudates. Moist mucous membranes. NECK: Normal range of motion, supple without lymphadenopathy or JVD, no thyromegaly LUNGS: bilateral bases diminished with fine bibasilar crackles, occasional expiratory wheezing HEART: Regular rate and rhythm without murmurs, rubs or gallops.S1S2 Normal ABDOMEN: Soft, nontender, normoactive bowel sounds. No guarding, no rebound. No masses appreciated. EXTREMITIES: Normal range of motion, no pitting or edema. No clubbing or cyanosis. NEUROLOGICAL: Cranial nerves II through XII grossly intact. Alert and oriented 1, Speech is normal in content, he has underlying dementia that is well-known. PSYCH: Normal mood, normal affect. SKIN: Warm, Dry, normal turgor, no rashes or lesions noted. - Labs CBC & Chem 7: 05/10/20 11:23 05/12/20 05:36 Labs: Abnormal Lab Results - Last 24 Hours (Table) 05/12/20 Range/Units 05:36 Carbon Dioxide 18.8 L (21.6-31.8) mmol/L Anion Gap 13.20 H (4.00-12.00) mmol/L BUN 48.0 H (9.0-27.0) mg/dL Est GFR (CKD-EPI)AfAm 49.2 L (60.0-200.0) Est GFR (CKD-EPI)NonAf 42.4 L (60.0-200.0) BUN/Creatinine Ratio 32.00 H (12.00-20.00) Ratio Glucose 133 H (70-110) mg/dL Assessment and Plan Assessment: Acute bilateral [place] 19 pneumonia Acute hypoxic respiratory failure secondary to the above acute renal failure secondary to the above and dehydration Hypertension Hypothyroidism Unspecified dementia with behavioral disturbance History of oral cancer Plan: Continue on current medication regime ,monitoring and symptomatic treatment. Continue on Decadron, Remdesivir, zinc, vitamin D, vitamin C. Aggressive pulmonary toileting, incentive spirometer. Close monitoring of inflammatory markers, renal function, electrolytes with repeat labs ordered for a.m. PT/OT evaluation pending. Patient is from a longterm, may need placement at subacute rehab.at discharge. The impression and plan of care has been dictated as directed. : I performed a history and examination of this patient, discussed the same with the dictator. I agree with the dictator's note ,documented as a scribe. Any additional findings or plans will be noted.
[2020-05-12] MEDS: CHOLECALCIFEROL 400 UNIT TAB PO SCH (16:37)
[2020-05-13] MEDS: LEVOTHYROXINE 50 MCG TAB PO SCH (05:33)
[2020-05-13 07:12] LABS: Basophils # (A) 0.1 k/uL (0-0.2); Basophils % (A) 1 %; Eosinophils % (A) 0 %; HCT 42.8 % (39.0-53.0); HGB 13.8 gm/dL (13.0-17.5); Lymphocytes # (A) 0.4 k/uL (1.0-4.8); Lymphocytes % (A) 5 %; MCH 28.2 pg (25.0-35.0); MCHC 32.2 g/dL (31.0-37.0); MCV 87.4 fL (80.0-100.0); Mean Platelet Volume 9.1; Monocytes # (A) 0.6 k/uL (0-1.0); Monocytes % (A) 7 %; Neutrophils # (A) 6.6 k/uL (1.3-7.7); Neutrophils % (A) 86 %; Platelet Count 235 k/uL (150-450); RDW 14.5 % (11.5-15.5); WBC 7.7 k/uL (3.8-10.6)
[2020-05-13 07:35] LABS: D-Dimer 31.91 mg/L FEU (<0.60); INR 1.4 (<1.2); Partial Thromboplastin Time 23.3 sec (22.0-30.0)
[2020-05-13] MEDS: dexAMETHasone 2 MG TAB PO SCH (08:16)
[2020-05-13] MEDS: DONEPEZIL 10 MG TAB PO SCH (08:17)
[2020-05-13] MEDS: CHOLECALCIFEROL 400 UNIT TAB PO SCH (08:17)
[2020-05-13] MEDS: MEMANTINE 10 MG TAB PO SCH ×2 (08:17→21:46)
[2020-05-13] MEDS: ASCORBIC ACID 500 MG TAB PO SCH (08:17)
[2020-05-13] MEDS: CYANOCOBALAMIN 500 MCG TAB PO SCH (08:17)
[2020-05-13] MEDS: ZINC SULFATE 220 MG CAP PO SCH (08:18)
[2020-05-13] MEDS: METOPROLOL TARTRATE 25 MG TAB PO SCH ×2 (08:18→10:10)
[2020-05-13 10:07] LABS: African American GFR (CKD) 53.5 (60.0-200.0); Albumin 3.1 g/dL (3.80-4.90); Albumin/Globulin Ratio 1.72 (1.60-3.17); Anion Gap 7.4 mmol/L (4.00-12.00); BUN/Creat Ratio 35.71 Ratio (12.00-20.00); C Reactive Protein 8.5 mg/dL (0.0-0.8); Calcium 8.3 mg/dL (8.7-10.3); Carbon Dioxide 21.6 mmol/L (21.6-31.8); Globulin 1.8 g/dL (1.6-3.3); Non-African American GFR(CKD) 46.1 (60.0-200.0); Potassium 5.2 mmol/L (3.5-5.5); Total Bilirubin 0.4 mg/dL (0.3-1.2); Total Protein 4.9 g/dL (6.2-8.2)
[2020-05-13 10:22] LABS: Ferritin 543.6 ng/mL (22.0-322.0)
[2020-05-13] MEDS: ENOXAPARIN 40 MG/0.4 ML SYRINGE SQ SCH (11:12)
[2020-05-13] MEDS: SODIUM CHLORIDE 0.9% 1,000 ML IV SCH ×2 (12:11→21:47)
[2020-05-13] MEDS: REMDESIVIR 100 MG in SODIUM CHLORIDE 0.9% 250 ML IVPB SCH (12:18)
--- NOTE | 2020-05-13 16:07 | P.PN ---
Subjective Progress Note Date: 05/13/20 This is a pleasant 84-year-old male who lives [facility]. He is brought over the EMS for anorexia and low-grade fever along with weakness. He is somewhat confused when he is in the emergency room as he is today. Initial evaluation showed some mild hypoxia with O2 saturation 90%. Blood pressure remained stable. He is been afebrile. He was found to be in mild renal failure with a BUN of 59 creatinine 2.3, urine showed +1 ketones, and he was positive for warner virus the emergency room. This a.m., the patient is somewhat confused. Answers my questions. He has known dementia and hypothyroidism. Chest x-ray showed Covid pneumonia type picture. CT brain showed no acute intracranial hemorrhage but diffuse cerebral atrophy and mild chronic small vessel ischemic change. The patient denies any chest pains or pressures or shortness of breath this time. Repeat a.m. labs are pending. His next of kin, friend is also my patient, and was also admitted with Covid 19 pneumonia yesterday. 05/12/2020 continues on Covid regimen including Remdesivir. Renal function improving. Sitter at bedside. Maintaining O2 sats in the 90s on 2 L nasal cannula. Afebrile. 05/13/2020 continues on Remdesivir, Decadron, vitamin C, vitamin D, zinc. Maintaining O2 sats in the low 90s on 2 L nasal cannula. Follow-up troponin mildly elevated at 0.048. Bradycardic with heart rates in the high 40s to 50s, asymptomatic. EKG ordered. No chest pain. A.m. beta demetria held. Afebrile, normal WBC. Objective - Vital Signs Vital signs: Vital Signs Temp 97.5 F L 05/13/20 07:16 Pulse 55 L 05/13/20 11:17 Resp 16 05/13/20 11:17 BP 161/65 05/13/20 11:17 Pulse Ox 91 L 05/13/20 11:17 Intake & Output 05/12/20 05/13/20 05/13/20 18:59 06:59 18:59 Intake Total 120 1290 Output Total 200 Balance -80 1290 Intake: Intake, IV Titration 900 Amount Sodium Chloride 0.9% 1, 900 000 ml @ 75 mls/hr IV . [id number] [facility] Rx#:[id number] Oral 120 390 Output: Urine 200 Other: Voiding Method Urinal Urinal Urinal Diaper Diaper Diaper Incontinent Incontinent Incontinent # Voids 1 1 1 # Bowel Movements 1 0 - Exam GENERAL: Pleasantly Confused, thin male, alert and oriented 1, just woke up from napping. HEAD: Atraumatic, normocephalic. EYES: Pupils equal round and reactive to light, conjunctiva are normal. ENT:nares patent, oropharynx clear without exudates. Moist mucous membranes. NECK: Supple, no JVD. LUNGS: bilateral bases diminished, no crackles, no wheezing HEART: Regular rate and rhythm without murmurs, rubs or gallops.S1S2 Normal ABDOMEN: Soft, nontender, normoactive bowel sounds. No guarding. EXTREMITIES: Normal range of motion, no pitting or edema. No clubbing or cyanosis. NEUROLOGICAL: Cranial nerves II through XII grossly intact. Alert and oriented 1. PSYCH: Flat affect. SKIN: Warm, Dry, no rashes noted. - Labs CBC & Chem 7: 05/13/20 06:38 05/13/20 06:38 Labs: Abnormal Lab Results - Last 24 Hours (Table) 05/13/20 05/13/20 05/13/20 Range/Units 06:38 06:38 06:38 Lymphocytes # 0.4 L (1.0-4.8) k/uL PT 14.0 H (9.0-12.0) sec INR 1.4 H (<1.2) D-Dimer 31.91 H (<0.60) mg/L FEU Chloride 114 H (96-109) mmol/L BUN 50.0 H (9.0-27.0) mg/dL Est GFR (CKD-EPI)AfAm 53.5 L (60.0-200.0) Est GFR (CKD-EPI)NonAf 46.1 L (60.0-200.0) BUN/Creatinine Ratio 35.71 H (12.00-20.00) Ratio Glucose 140 H (70-110) mg/dL Calcium 8.3 L (8.7-10.3) mg/dL Ferritin 543.6 H (22.0-322.0) ng/mL Lactate Dehydrogenase 312 H (120-246) U/L Troponin I (0.000-0.034) ng/mL C-Reactive Protein 8.5 H (0.0-0.8) mg/dL Total Protein 4.9 L (6.2-8.2) g/dL Albumin 3.10 L (3.80-4.90) g/dL 05/13/20 Range/Units 06:38 Lymphocytes # (1.0-4.8) k/uL PT (9.0-12.0) sec INR (<1.2) D-Dimer (<0.60) mg/L FEU Chloride (96-109) mmol/L BUN (9.0-27.0) mg/dL Est GFR (CKD-EPI)AfAm (60.0-200.0) Est GFR (CKD-EPI)NonAf (60.0-200.0) BUN/Creatinine Ratio (12.00-20.00) Ratio Glucose (70-110) mg/dL Calcium (8.7-10.3) mg/dL Ferritin (22.0-322.0) ng/mL Lactate Dehydrogenase (120-246) U/L Troponin I 0.048 H* (0.000-0.034) ng/mL C-Reactive Protein (0.0-0.8) mg/dL Total Protein (6.2-8.2) g/dL Albumin (3.80-4.90) g/dL Assessment and Plan Assessment: Acute bilateral [place] 19 pneumonia Acute hypoxic respiratory failure secondary to the above acute renal failure secondary to the above and dehydration Hypertension Hypothyroidism Unspecified dementia with behavioral disturbance History of oral cancer Sinus bradycardia Plan: Continue on current medication regime ,monitoring and symptomatic treatment. EKG, remote telemetry ordered. A.m. beta demetria dose held . Discussed with cardiology -further orders noted .continue Decadron, Remdesivir, zinc, vitamin D, vitamin C. Aggressive pulmonary toileting, incentive spirometer. Close monitoring of inflammatory markers, renal function, electrolytes with repeat labs ordered for a.m. Discharge planning in progress soon for subacute rehab. The impression and plan of care has been dictated as directed. : I performed a history and examination of this patient, discussed the same with the dictator. I agree with the dictator's note ,documented as a scribe. Any additional findings or plans will be noted.
--- NOTE | 2020-05-13 20:02 | P.PN ---
Subjective Progress Note Date: 05/13/20 Principal diagnosis: Acute hypoxic history failure [place] in 19 pneumonia bilateral Acute kidney injury likely related to intravascular depletion and dehydration Hypertension hypertensive cardiovascular disease Hypothyroidism History of oral cancer 05/13/2020, patient seen eval examined during rounds labs reviewed medications reviewed care plan discussed, patient is still complaining or shortness of breath she he is on 2 L oxygen oxygen saturation have been stable, remains afebrile with stable hemodynamics, 91% to 95% on current oxygen, patient remain on Hexadrol along with IV REMdesivir 05/12/2020, patient seen eval examined during the rounds labs reviewed medications reviewed shortness of breath still there on 2 L oxygen, confusion stable somewhat agitated but mental status have improved compared, bedside sitter is present, BUN/creatinine improved to 48 and 1.5, This is a 84-year-old male resident of a [facility], came into the hospital with altered mental status, for the last 3 days patient has not been eating very weak fatigued and tired, EMS was notified brought into the hospital for further evaluation, his saturation on room air was 90%, afebrile no arrival, patient has significant history of oral cancer, hypertension hypertensive cardiovascular dis ease with hypothyroidism dementia and Alzheimer's disease, his BUN/creatinine is 59 and 2.3, warner virus PCR positive, CT head chronic old cerebral atrophic and small vascular changes were noted, chest x-ray showed bilateral multifocal patchy infiltrate right side more than the left side consistent with covid 19 pneumonia Objective - Vital Signs Vital signs: Vital Signs Temp 97.5 F L 05/13/20 07:16 Pulse 55 L 05/13/20 11:17 Resp 16 05/13/20 11:17 BP 161/65 05/13/20 11:17 Pulse Ox 91 L 05/13/20 11:17 Intake & Output 05/13/20 05/13/20 05/14/20 06:59 18:59 06:59 Intake Total 1290 Balance 1290 Intake: Intake, IV Titration 900 Amount Sodium Chloride 0.9% 1, 900 000 ml @ 75 mls/hr IV . [id number] REPLACED BY [facility] Rx#:[id number] Oral 390 Other: Voiding Method Urinal Urinal Diaper Diaper Incontinent Incontinent # Voids 1 1 # Bowel Movements 0 - Exam - Constitutional General appearance: average body habitus, cooperative, disheveled, mild distress - EENT Eyes: PERRLA Ears: bilateral: normal - Neck Carotids: bilateral: upstroke normal Thyroid: bilateral: normal size - Respiratory Respiratory: bilateral: diminished - Cardiovascular Rhythm: regular Heart sounds: normal: S1, S2 - Gastrointestinal General gastrointestinal: normal bowel sounds, soft - Integumentary Integumentary: decreased turgor - Neurologic Neurologic: CNII-XII intact - Musculoskeletal Musculoskeletal: gait normal, generalized weakness, strength equal bilaterally - Labs CBC & Chem 7: 05/13/20 06:38 05/13/20 06:38 Labs: Abnormal Lab Results - Last 24 Hours (Table) 05/13/20 05/13/20 05/13/20 Range/Units 06:38 06:38 06:38 Lymphocytes # 0.4 L (1.0-4.8) k/uL PT 14.0 H (9.0-12.0) sec INR 1.4 H (<1.2) D-Dimer 31.91 H (<0.60) mg/L FEU Chloride 114 H (96-109) mmol/L BUN 50.0 H (9.0-27.0) mg/dL Est GFR (CKD-EPI)AfAm 53.5 L (60.0-200.0) Est GFR (CKD-EPI)NonAf 46.1 L (60.0-200.0) BUN/Creatinine Ratio 35.71 H (12.00-20.00) Ratio Glucose 140 H (70-110) mg/dL Calcium 8.3 L (8.7-10.3) mg/dL Ferritin 543.6 H (22.0-322.0) ng/mL Lactate Dehydrogenase 312 H (120-246) U/L Troponin I (0.000-0.034) ng/mL C-Reactive Protein 8.5 H (0.0-0.8) mg/dL Total Protein 4.9 L (6.2-8.2) g/dL Albumin 3.10 L (3.80-4.90) g/dL 05/13/20 Range/Units 06:38 Lymphocytes # (1.0-4.8) k/uL PT (9.0-12.0) sec INR (<1.2) D-Dimer (<0.60) mg/L FEU Chloride (96-109) mmol/L BUN (9.0-27.0) mg/dL Est GFR (CKD-EPI)AfAm (60.0-200.0) Est GFR (CKD-EPI)NonAf (60.0-200.0) BUN/Creatinine Ratio (12.00-20.00) Ratio Glucose (70-110) mg/dL Calcium (8.7-10.3) mg/dL Ferritin (22.0-322.0) ng/mL Lactate Dehydrogenase (120-246) U/L Troponin I 0.048 H* (0.000-0.034) ng/mL C-Reactive Protein (0.0-0.8) mg/dL Total Protein (6.2-8.2) g/dL Albumin (3.80-4.90) g/dL Assessment and Plan Assessment: Acute hypoxic history failure [place] in 19 pneumonia bilateral Acute kidney injury likely related to intravascular depletion and dehydration Hypertension hypertensive cardiovascular disease Hypothyroidism History of oral cancer Plan: Check inflammatory parameters as needed Deep breathing sense incentive spirometry Prone positioning IV Decadron IV Remdesivir for 5 days Supplemental oxygen Gentle rehydration Monitor renal functions closely Anticoagulation with Lovenox Check inflammatory parameters Zinc vitamin C and vitamin D supplements Further recommendations pending plan of care as per clinical response of patient Time with Patient: Greater than 30
[2020-05-13] MEDS: METOPROLOL TARTRATE 12.5 MG TAB PO SCH (21:46)
[2020-05-14] MEDS: LEVOTHYROXINE 50 MCG TAB PO SCH (06:16)
[2020-05-14] MEDS: ENOXAPARIN 40 MG/0.4 ML SYRINGE SQ SCH (08:30)
[2020-05-14] MEDS: MEMANTINE 10 MG TAB PO SCH ×2 (08:31→21:59)
[2020-05-14] MEDS: CHOLECALCIFEROL 400 UNIT TAB PO SCH (08:31)
[2020-05-14] MEDS: dexAMETHasone 2 MG TAB PO SCH (08:31)
[2020-05-14] MEDS: DONEPEZIL 10 MG TAB PO SCH (08:31)
[2020-05-14] MEDS: CYANOCOBALAMIN 500 MCG TAB PO SCH (08:31)
[2020-05-14] MEDS: METOPROLOL TARTRATE 12.5 MG TAB PO SCH ×3 (08:31→21:59)
[2020-05-14] MEDS: ZINC SULFATE 220 MG CAP PO SCH (08:31)
[2020-05-14] MEDS: ASCORBIC ACID 500 MG TAB PO SCH (08:31)
--- NOTE | 2020-05-14 10:00 | ECHOF ---
Referral Reason:abnormal troponin, LV function MEASUREMENTS -------- HEIGHT: 180.3 cm WEIGHT: 73.0 kg BP: RVIDd: 2.5 cm (< 3.3) IVSd: 1.0 cm (0.6 - 1.1) LVIDd: 5.3 cm (3.9 - 5.3) LVPWd: 1.1 cm (0.6 - 1.1) IVSs: 1.8 cm LVIDs: 3.2 cm LVPWs: 1.8 cm LAESV Index (A-L): 27.97 ml/m Ao Diam: 5.0 cm (2.0 - 3.7) AV Cusp: 2.2 cm (1.5 - 2.6) LA Diam: 3.1 cm (2.7 - 3.8) MV EXCURSION: 17.586 mm (> 18.000) MV EF SLOPE: 25 mm/s (70 - 150) EPSS: 1.2 cm MV E Antonino: 0.63 m/s MV DecT: 299 ms MV A Antonino: 0.82 m/s MV E/A Ratio: 0.76 AR PHT: 1073 ms RAP: 5.00 mmHg RVSP: 35.29 mmHg FINDINGS -------- Sinus rhythm. This was a technically adequate study. The left ventricular size is normal. Left ventricular wall thickness is normal. Overall left vent ricular systolic function is low-normal with, an EF between 50 - 55 %. Normal LAP Grade 1 Diastolic Dysfunction The right ventricle is normal in size. Normal LA size by volume 22+/-6 ml/m2. The right atrial size is normal. Aortic valve is trileaflet and is mildly thickened. There is moderate aortic regurgitation. The mitral valve leaflets are mildly thickened. Mild mitral regurgitation is present. There is mi ld mitral valve prolapse. The tricuspid valve appears structurally normal. Mild tricuspid regurgitation present. There is m ild pulmonary hypertension. Trace/mild (physiologic) pulmonic regurgitation. 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 Normal inferior vena cava with normal inspiratory collapse consistent with estimated right atrial pre ssure of 5 mmHg. There is no pericardial effusion. CONCLUSIONS -------- 1. Overall left ventricular systolic function is low-normal with, an EF between 50 - 55 %. 2. Normal LAP Grade 1 Diastolic Dysfunction 3. Normal LA size by volume 22+/-6 ml/m2. 4. There is moderate aortic regurgitation. 5. Mild mitral regurgitation is present. 6. There is mild mitral valve prolapse. 7. Mild tricuspid regurgitation present. 8. Trace/mild (physiologic) pulmonic regurgitation. 9. 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 There is no pericardial effusion. OUTSOLE FLEXER: Jacquelin Sy RDCS
--- NOTE | 2020-05-14 11:35 | P.PN ---
Subjective Progress Note Date: 05/14/20 Principal diagnosis: Acute hypoxic history failure [place] in 19 pneumonia bilateral Acute kidney injury likely related to intravascular depletion and dehydration Hypertension hypertensive cardiovascular disease Hypothyroidism History of oral cancer 05/14/2020, patient seen eval examined during the rounds labs reviewed medications reviewed, remains on therapy, on 2 L oxygen saturation have been stable, but does feel short of breath saturation is 95%, 05/13/2020, patient seen eval examined during rounds labs reviewed medications reviewed care plan discussed, patient is still complaining or shortness of breath she he is on 2 L oxygen oxygen saturation have been stable, remains afebrile with stable hemodynamics, 91% to 95% on current oxygen, patient remain on Hexadrol along with IV REMdesivir 05/12/2020, patient seen eval examined during the rounds labs reviewed medi cations reviewed shortness of breath still there on 2 L oxygen, confusion stable somewhat agitated but mental status have improved compared, bedside sitter is present, BUN/creatinine improved to 48 and 1.5, This is a 84-year-old male resident of a nursing home, came into the hospital with altered mental status, for the last 3 days patient has not been eating very weak fatigued and tired, EMS was notified brought into the hospital for further evaluation, his saturation on room air was 90%, afebrile no arrival, patient has significant history of oral cancer, 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 dementia and Alzheimer's disease, his BUN/creatinine is 59 and 2.3, warner virus PCR positive, CT head chronic old cerebral atrophic and small vascular changes were noted, chest x-ray showed bilateral multifocal patchy infiltrate right side more than the left side consistent with covid 19 pneumonia Objective - Vital Signs Vital signs: Vital Signs Temp 97.8 F 05/14/20 08:00 Pulse 55 L 05/14/20 08:00 Resp 17 05/14/20 08:00 BP 135/49 05/14/20 08:00 Pulse Ox 95 05/14/20 08:00 Intake & Output 05/13/20 05/14/20 05/14/20 18:59 06:59 18:59 Other: Voiding Method Urinal Urinal Urinal Diaper Diaper Diaper Incontinent Incontinent Incontinent # Voids 1 4 # Bowel Movements 2 - Exam - Constitutional General appearance: average body habitus, cooperative, disheveled, mild distress - EENT Eyes: PERRLA Ears: bilateral: normal - Neck Carotids: bilateral: upstroke normal Thyroid: bilateral: normal size - Respiratory Respiratory: bilateral: diminished - Cardiovascular Rhythm: regular Heart sounds: normal: S1, S2 - Gastrointestinal General gastrointestinal: normal bowel sounds, soft - Integumentary Integumentary: decreased turgor - Neurologic Neurologic: CNII-XII intact - Musculoskeletal Musculoskeletal: gait normal, generalized weakness, strength equal bilaterally - Labs CBC & Chem 7: 05/13/20 06:38 05/13/20 06:38 Assessment and Plan Assessment: Acute hypoxic history failure [place] in 19 pneumonia bilateral Acute kidney injury likely related to intravascular depletion and dehydration Hypertension hypertensive cardiovascular disease Hypothyroidism History of oral cancer Plan: Check inflammatory parameters as needed Deep breathing sense incentive spirometry Prone positioning IV Decadron IV Remdesivir for 5 days Supplemental oxygen Gentle rehydration Monitor renal functions closely Anticoagulation with Lovenox Check inflammatory parameters Zinc vitamin C and vitamin D supplements Further recommendations pending plan of care as per clinical response of patient Time with Patient: Greater than 30
[2020-05-14] MEDS: REMDESIVIR 100 MG in SODIUM CHLORIDE 0.9% 250 ML IVPB SCH (12:20)
[2020-05-14] MEDS: SODIUM CHLORIDE 0.9% 1,000 ML IV SCH (12:43)
--- NOTE | 2020-05-14 15:49 | P.PN ---
Subjective Progress Note Date: 05/14/20 This is a pleasant 84-year-old male who lives [facility]. He is brought over the EMS for anorexia and low-grade fever along with weakness. He is somewhat confused when he is in the emergency room as he is today. Initial evaluation showed some mild hypoxia with O2 saturation 90%. Blood pressure remained stable. He is been afebrile. He was found to be in mild renal failure with a BUN of 59 creatinine 2.3, urine showed +1 ketones, and he was positive for warner virus the emergency room. This a.m., the patient is somewhat confused. Answers my questions. He has known dementia and hypothyroidism. Chest x-ray showed Covid pneumonia type picture. CT brain showed no acute intracranial hemorrhage but diffuse cerebral atrophy and mild chronic small vessel ischemic change. The patient denies any chest pains or pressures or shortness of breath this time. Repeat a.m. labs are pending. His next of kin, friend is also my patient, and was also admitted with Covid 19 pneumonia yesterday. 05/12/2020 continues on Covid regimen including Remdesivir. Renal function improving. Sitter at bedside. Maintaining O2 sats in the 90s on 2 L nasal cannula. Afebrile. 05/13/2020 continues on Remdesivir, Decadron, vitamin C, vitamin D, zinc. Maintaining O2 sats in the low 90s on 2 L nasal cannula. Follow-up troponin mildly elevated at 0.048. Bradycardic with heart rates in the high 40s to 50s, asymptomatic. EKG ordered. No chest pain. A.m. beta demetria held. Afebrile, normal WBC. 05/14/2020 maintained on Covid regimen, maintaining O2 sats in the 90s on 2 L nasal cannula. Afebrile. Labs pending. Heart rate in the 50s. Denies lightheadedness dizziness or focal deficits. Denies chest pain, palpitations. Complains of exertional shortness of breath. Objective - Vital Signs Vital signs: Vital Signs Temp 97.9 F 05/14/20 11:52 Pulse 52 L 05/14/20 11:52 Resp 17 05/14/20 11:52 BP 170/75 05/14/20 11:52 Pulse Ox 95 05/14/20 11:52 Intake & Output 05/13/20 05/14/20 05/14/20 18:59 06:59 18:59 Other: Voiding Method Urinal Urinal Urinal Diaper Diaper Diaper Incontinent Incontinent Incontinent # Voids 1 4 # Bowel Movements 2 - Exam GENERAL: Pleasantly Confused, alert and oriented 1 HEAD: Atraumatic, normocephalic. EYES: Pupils equal round and reactive to light, conjunctiva are normal. ENT:nares patent, oropharynx clear without exudates. Moist mucous membranes. NECK: Supple, no JVD. LUNGS: bilateral bases diminished HEART: Regular rate and rhythm without murmurs, rubs or gallops.S1S2 Normal ABDOMEN: Soft, nontender, normoactive bowel sounds. No guarding. EXTREMITIES: Normal range of motion, no pitting or edema. No clubbing or cyanosis. NEUROLOGICAL: Cranial nerves II through XII grossly intact. Alert and oriented 1. SKIN: Warm, Dry, no rashes noted. - Labs CBC & Chem 7: 05/13/20 06:38 05/13/20 06:38 Assessment and Plan Assessment: Acute bilateral [place] 19 pneumonia Acute hypoxic respiratory failure secondary to the above acute renal failure secondary to the above and dehydration Hypertension Hypothyroidism Unspecified dementia with behavioral disturbance History of oral cancer Sinus bradycardia Plan: Continue on current medication regime ,monitoring and symptomatic treatment. EKG, remote telemetry ordered. Finishing up Covid regimen as per pulmonary. Labs pending. Discharge planning in progress for subacute rehab Tuesday, pending pulmonary clearance. The impression and plan of care has been dictated as directed. : I performed a history and examination of this patient, discussed the same with the dictator. I agree with the dictator's note ,documented as a scribe. Any additional findings or plans will be noted.
[2020-05-15] MEDS: SODIUM CHLORIDE 0.9% 1,000 ML IV SCH ×2 (01:30→11:29)
[2020-05-15] MEDS: LEVOTHYROXINE 50 MCG TAB PO SCH (05:47)
[2020-05-15] MEDS: dexAMETHasone 2 MG TAB PO SCH (08:42)
[2020-05-15] MEDS: CHOLECALCIFEROL 400 UNIT TAB PO SCH (08:42)
[2020-05-15] MEDS: CYANOCOBALAMIN 500 MCG TAB PO SCH (08:42)
[2020-05-15] MEDS: ZINC SULFATE 220 MG CAP PO SCH (08:42)
[2020-05-15] MEDS: MEMANTINE 10 MG TAB PO SCH ×2 (08:42→22:30)
[2020-05-15] MEDS: DONEPEZIL 10 MG TAB PO SCH (08:42)
[2020-05-15] MEDS: ASCORBIC ACID 500 MG TAB PO SCH (08:42)
[2020-05-15] MEDS: ENOXAPARIN 40 MG/0.4 ML SYRINGE SQ SCH (08:42)
[2020-05-15] MEDS: METOPROLOL TARTRATE 12.5 MG TAB PO SCH ×2 (08:43→23:59)
--- NOTE | 2020-05-15 11:27 | P.PN ---
Subjective Progress Note Date: 05/15/20 Principal diagnosis: Acute hypoxic history failure [place] in 19 pneumonia bilateral Acute kidney injury likely related to intravascular depletion and dehydration Hypertension hypertensive cardiovascular disease Hypothyroidism History of oral cancer 05/15/2020, patient seen eval examined during rounds labs reviewed medications reviewed appetite has been poor, oxygenation however been stable for 2 L, today is the last dose of IV Remdesivir, oxygen saturation remains stable asymptomatic bradycardia however has been noted, 96% on 2 L, 05/14/2020, patient seen eval examined during the rounds labs reviewed medications reviewed, remains on therapy, on 2 L oxygen saturation have been stable, but does feel short of breath saturation is 95%, 05/13/2020, patient seen eval examined during rounds labs reviewed medications reviewed care plan discussed, patient is still complaining or shortness of breath she he is on 2 L oxygen oxygen saturation have been stable, remains afeb rile with stable hemodynamics, 91% to 95% on current oxygen, patient remain on Hexadrol along with IV REMdesivir 05/12/2020, patient seen eval examined during the rounds labs reviewed medications reviewed shortness of breath still there on 2 L oxygen, confusion stable somewhat agitated but mental status have improved compared, bedside sitter is present, BUN/creatinine improved to 48 and 1.5, This is a 84-year-old male resident of a custodial, came into the hospital with altered mental status, for the last 3 days patient has not been eating very weak fatigued and tired, EMS was notified brought into the hospital for further evaluation, his saturation on room air was 90%, afebrile no arrival, patient has significant history of oral cancer, 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 dementia and Alzheimer's disease, his BUN/creatinine is 59 and 2.3, warenr virus PCR positive, CT head chronic old cerebral atrophic and small vascular changes were noted, chest x-ray showed bilateral multifocal patchy infiltrate right side more than the left side consistent with covid 19 pneumonia Objective - Vital Signs Vital signs: Vital Signs Temp 98.0 F 05/15/20 05:39 Pulse 49 L 05/15/20 05:39 Resp 16 05/15/20 05:39 BP 173/67 05/15/20 05:39 Pulse Ox 96 05/15/20 05:39 Intake & Output 05/14/20 05/15/20 05/15/20 18:59 06:59 18:59 Intake Total 262 650 Balance 262 650 Intake: Intake, IV Titration 262 Amount Remdesivir 100 mg In 250 Sodium Chloride 0.9% 250 ml @ 250 mls/hr IVPB DAILY@1300 [facility] Rx#: [id number] Sodium Chloride 0.9% 1, 12 000 ml @ 75 mls/hr IV . [id number] [facility] Rx#:[id number] Oral 650 Other: Voiding Method Urinal Urinal Urinal Diaper Diaper Diaper Incontinent Incontinent Incontinent # Voids 2 2 # Bowel Movements 0 - Exam - Constitutional General appearance: average body habitus, cooperative, disheveled, mild distress - EENT Eyes: PERRLA Ears: bilateral: normal - Neck Carotids: bilateral: upstroke normal Thyroid: bilateral: normal size - Respiratory Respiratory: bilateral: diminished - Cardiovascular Rhythm: regular Heart sounds: normal: S1, S2 - Gastrointestinal General gastrointestinal: normal bowel sounds, soft - Integumentary Integumentary: decreased turgor - Neurologic Neurologic: CNII-XII intact - Musculoskeletal Musculoskeletal: gait normal, generalized weakness, strength equal bilaterally - Labs CBC & Chem 7: 05/13/20 06:38 05/13/20 06:38 Assessment and Plan Assessment: Acute hypoxic history failure [place] in 19 pneumonia bilateral Acute kidney injury likely related to intravascular depletion and dehydration Hypertension hypertensive cardiovascular disease Hypothyroidism History of oral cancer Plan: Check inflammatory parameters as needed Deep breathing sense incentive spirometry Prone positioning IV Decadron IV Remdesivir for 5 days Supplemental oxygen Gentle rehydration Monitor renal functions closely Anticoagulation with Lovenox Check inflammatory parameters Zinc vitamin C and vitamin D supplements Further recommendations pending plan of care as per clinical response of patient Time with Patient: Greater than 30
[2020-05-15 12:09] LABS: HCT 50.9 % (39.0-53.0); HGB 15.9 gm/dL (13.0-17.5); Hypochromasia Slight; MCH 27.5 pg (25.0-35.0); MCHC 31.2 g/dL (31.0-37.0); MCV 88.1 fL (80.0-100.0); Mean Platelet Volume 9.6; Platelet Count 197 k/uL (150-450); RBC 5.78 m/uL (4.30-5.90); RDW 14.7 % (11.5-15.5); WBC 9.1 k/uL (3.8-10.6)
[2020-05-15] MEDS: REMDESIVIR 100 MG in SODIUM CHLORIDE 0.9% 250 ML IVPB SCH (12:24)
[2020-05-15 12:36] LABS: D-Dimer 17.83 mg/L FEU (<0.60); Partial Thromboplastin Time 26.3 sec (22.0-30.0)
[2020-05-15 14:30] LABS: Band Neutrophils % 3 %; Lymphocytes # (M) 0.55 k/uL (1.0-4.8); Metamyelocytes # (M) 0.09 k/uL (0); Metamyelocytes % 1 %; Monocytes # (M) 0.64 k/uL (0-1.0); Neutrophils % (M) 85 %; Nucleated Red Blood Cells 0 /100 WBC (0-0); Total Cells Counted 200
[2020-05-15 15:41] LABS: INR 1.4 (<1.2); Prothrombin Time 13.8 sec (9.0-12.0)
--- NOTE | 2020-05-15 17:03 | P.PN ---
Subjective Progress Note Date: 05/15/20 This is a pleasant 84-year-old male who lives [facility]. He is brought over the EMS for anorexia and low-grade fever along with weakness. He is somewhat confused when he is in the emergency room as he is today. Initial evaluation showed some mild hypoxia with O2 saturation 90%. Blood pressure remained stable. He is been afebrile. He was found to be in mild renal failure with a BUN of 59 creatinine 2.3, urine showed +1 ketones, and he was positive for warner virus the emergency room. This a.m., the patient is somewhat confused. Answers my questions. He has known dementia and hypothyroidism. Chest x-ray showed Covid pneumonia type picture. CT brain showed no acute intracranial hemorrhage but diffuse cerebral atrophy and mild chronic small vessel ischemic change. The patient denies any chest pains or pressures or shortness of breath this time. Repeat a.m. labs are pending. His next of kin, friend is also my patient, and was also admitted with Covid 19 pneumonia yesterday. 05/12/2020 continues on Covid regimen including Remdesivir. Renal function improving. Sitter at bedside. Maintaining O2 sats in the 90s on 2 L nasal cannula. Afebrile. 05/13/2020 continues on Remdesivir, Decadron, vitamin C, vitamin D, zinc. Maintaining O2 sats in the low 90s on 2 L nasal cannula. Follow-up troponin mildly elevated at 0.048. Bradycardic with heart rates in the high 40s to 50s, asymptomatic. EKG ordered. No chest pain. A.m. beta demetria held. Afebrile, normal WBC. 05/14/2020 maintained on Covid regimen, maintaining O2 sats in the 90s on 2 L nasal cannula. Afebrile. Labs pending. Heart rate in the 50s. Denies lightheadedness dizziness or focal deficits. Denies chest pain, palpitations. Complains of exertional shortness of breath. 05/15/2020 appetite fluctuates. Maintaining O2 sats in the 90s on 2 L nasal cannula. Asymptomatic bradycardia, hypertensive. Afebrile, normal WBC. Objective - Vital Signs Vital signs: Vital Signs Temp 98.2 F 05/15/20 11:00 Pulse 54 L 05/15/20 11:00 Resp 20 05/15/20 11:00 BP 182/72 05/15/20 11:00 Pulse Ox 89 L 05/15/20 11:00 Intake & Output 05/14/20 05/15/20 05/15/20 18:59 06:59 18:59 Intake Total 027 282 3306 Balance 067 506 9273 Weight 73.028 kg Intake: Intake, IV Titration 262 1075 Amount Remdesivir 100 mg In 250 250 Sodium Chloride 0.9% 250 ml @ 250 mls/hr IVPB DAILY@1300 [facility] Rx#: [id number] Sodium Chloride 0.9% 1, 12 825 000 ml @ 75 mls/hr IV . [id number] [facility] Rx#:[id number] Oral 650 Other: Voiding Method Urinal Urinal Urinal Diaper Diaper Diaper Incontinent Incontinent Incontinent # Voids 2 2 # Bowel Movements 0 1 - Exam GENERAL: Pleasantly Confused, alert and oriented 1, fluctuating anxiety HEAD: Atraumatic, normocephalic. EYES: Pupils equal round and reactive to light, conjunctiva are normal. ENT:nares patent, oropharynx clear without exudates. Moist mucous membranes. NECK: Supple, no JVD. LUNGS: bilateral bases diminished. HEART: Regular rate and rhythm without murmurs, rubs or gallops.S1S2 Normal ABDOMEN: Soft, nontender, normoactive bowel sounds. No guarding. EXTREMITIES: Normal range of motion, no pitting or edema. No clubbing or cyanosis. NEUROLOGICAL: Cranial nerves II through XII grossly intact. Alert and oriented 1. SKIN: Warm, Dry, no rashes noted. - Labs CBC & Chem 7: 05/15/20 11:55 05/13/20 06:38 Labs: Abnormal Lab Results - Last 24 Hours (Table) 05/15/20 05/15/20 Range/Units 11:55 11:55 Neutrophils # (Manual) 8.00 H (1.3-7.7) k/uL Lymphocytes # (Manual) 0.55 L (1.0-4.8) k/uL Metamyelocytes # (Man) 0.09 H (0) k/uL PT 13.8 H (9.0-12.0) sec INR 1.4 H (<1.2) D-Dimer 17.83 H (<0.60) mg/L FEU Assessment and Plan Assessment: Acute bilateral [place] 19 pneumonia Acute hypoxic respiratory failure secondary to the above acute renal failure secondary to the above and dehydration, improving Hypertension Hypothyroidism Unspecified dementia with behavioral disturbance History of oral cancer Sinus bradycardia, asymptomatic Plan: Continue on current medication regime ,monitoring and symptomatic treatment. Norvasc added for hypertension. Close monitoring of blood pressure. Discharge planning in progress for subacute rehab tomorrow, pending pulmonary clearance and final DC recommendations. The impression and plan of care has been dictated as directed. : I performed a history and examination of this patient, discussed the same with the dictator. I agree with the dictator's note ,documented as a scribe. Any additional findings or plans will be noted.
[2020-05-15] MEDS: amLODIPine 5 MG TAB PO SCH (17:13)
[2020-05-15] MEDS: LORATADINE 10 MG TAB PO SCH (17:13)
[2020-05-15] MEDS: PANTOPRAZOLE 40 MG TABLET PO SCH (17:13)
[2020-05-15 20:49] LABS: African American GFR (CKD) 58.5 (60.0-200.0); Albumin 3.4 g/dL (3.80-4.90); Albumin/Globulin Ratio 1.7 (1.60-3.17); Anion Gap 10.5 mmol/L (4.00-12.00); BUN/Creat Ratio 31.54 Ratio (12.00-20.00); C Reactive Protein 3.9 mg/dL (0.0-0.8); Calcium 8.4 mg/dL (8.7-10.3); Carbon Dioxide 19.5 mmol/L (21.6-31.8); Magnesium 1.7 mg/dL (1.5-2.4); Non-African American GFR(CKD) 50.5 (60.0-200.0); Potassium 4.6 mmol/L (3.5-5.5); Total Bilirubin 0.8 mg/dL (0.3-1.2); Total Protein 5.4 g/dL (6.2-8.2)
[2020-05-15 23:16] LABS: Ferritin 486.9 ng/mL (22.0-322.0)
[2020-05-16] MEDS: LEVOTHYROXINE 50 MCG TAB PO SCH (05:48)
[2020-05-16] MEDS: SODIUM CHLORIDE 0.9% 1,000 ML IV SCH (05:56)
--- NOTE | 2020-05-16 12:47 | XR ---
EXAMINATION TYPE: XR chest 1V portable DATE OF EXAM: 05/16/2020 COMPARISON: Prior chest x-ray 05/10/2020 HISTORY: Hypoxemia, abnormal chest x-ray TECHNIQUE: Single frontal view of the chest is obtained. FINDINGS: There is worsening airspace disease greater in the right lung than on the left, persistent elevation of right hemidiaphragm. Cardiac mediastinal silhouette, pulmonary vascularity and simran not significant changed. No evident pneumothorax or pleural effusion. IMPRESSION: Correlate for pneumonia.
[2020-05-16] MEDS: dexAMETHasone 2 MG TAB PO SCH (12:54)
[2020-05-16] MEDS: amLODIPine 5 MG TAB PO SCH (12:54)
--- NOTE | 2020-05-16 13:01 | P.PN ---
Subjective Progress Note Date: 05/16/20 This is a pleasant 84-year-old male who lives [facility]. He is brought over the EMS for anorexia and low-grade fever along with weakness. He is somewhat confused when he is in the emergency room as he is today. Initial evaluation showed some mild hypoxia with O2 saturation 90%. Blood pressure remained stable. He is been afebrile. He was found to be in mild renal failure with a BUN of 59 creatinine 2.3, urine showed +1 ketones, and he was positive for warner virus the emergency room. This a.m., the patient is somewhat confused. Answers my questions. He has known dementia and hypothyroidism. Chest x-ray showed Covid pneumonia type picture. CT brain showed no acute intracranial hemorrhage but diffuse cerebral atrophy and mild chronic small vessel ischemic change. The patient denies any chest pains or pressures or shortness of breath this time. Repeat a.m. labs are pending. His next of kin, friend is also my patient, and was also admitted with Covid 19 pneumonia yesterday. 05/12/2020 continues on Covid regimen including Remdesivir. Renal function improving. Sitter at bedside. Maintaining O2 sats in the 90s on 2 L nasal cannula. Afebrile. 05/13/2020 continues on Remdesivir, Decadron, vitamin C, vitamin D, zinc. Maintaining O2 sats in the low 90s on 2 L nasal cannula. Follow-up troponin mildly elevated at 0.048. Bradycardic with heart rates in the high 40s to 50s, asymptomatic. EKG ordered. No chest pain. A.m. beta demetria held. Afebrile, normal WBC. 05/14/2020 maintained on Covid regimen, maintaining O2 sats in the 90s on 2 L nasal cannula. Afebrile. Labs pending. Heart rate in the 50s. Denies lightheadedness dizziness or focal deficits. Denies chest pain, palpitations. Complains of exertional shortness of breath. 05/15/2020 appetite fluctuates. Maintaining O2 sats in the 90s on 2 L nasal cannula. Asymptomatic bradycardia, hypertensive. Afebrile, normal WBC. 05/16/2020 significant decline in respiratory status. Early a.m. patient's oxygen requirements worsened, requiring 6 L nasal cannula O2 to maintain O2 sats in the 90s. Shortly thereafter rapidly declined to nonrebreather plus high flow nasal cannula. Chest x-ray stat ordered. Afebrile, labs pending. Denies chest pain, palpitations. Objective - Vital Signs Vital signs: Vital Signs Temp 97.0 F L 05/16/20 10:05 Pulse 84 05/16/20 10:05 Resp 20 05/16/20 10:05 BP 163/74 05/16/20 10:05 Pulse Ox 93 L 05/16/20 10:05 Intake & Output 05/15/20 05/16/20 05/16/20 18:59 06:59 18:59 Intake Total 1075 Balance 1075 Weight 73.028 kg Intake: Intake, IV Titration 1075 Amount Remdesivir 100 mg In 250 Sodium Chloride 0.9% 250 ml @ 250 mls/hr IVPB DAILY@1300 [facility] Rx#: [id number] Sodium Chloride 0.9% 1, 825 000 ml @ 75 mls/hr IV . [id number] [facility] Rx#:[id number] Other: Voiding Method Urinal Urinal Urinal Diaper Diaper Diaper Incontinent Incontinent Incontinent # Voids 0 # Bowel Movements 1 0 - Exam GENERAL: Sitting up in bed, wearing a nonrebreather plus high flow nasal cannula, respiratory effort increased, attempting to converse. HEAD: Atraumatic, normocephalic. HEENT: Pupils equal round and reactive to light, conjunctiva are normal. NECK: Supple, no JVD. LUNGS: bilateral bases diminished, more so on the right, fine expiratory wheezing. HEART: Regular rate and rhythm without murmurs, rubs or gallops.S1S2 Normal ABDOMEN: Soft, nontender, normoactive bowel sounds. No guarding. EXTREMITIES: Normal range of motion, no pitting or edema. No clubbing or cyanosis. NEUROLOGICAL: Cranial nerves II through XII grossly intact. Alert and oriented 1. SKIN: Warm, Dry, no rashes noted. - Labs CBC & Chem 7: 05/15/20 11:55 05/15/20 11:55 Labs: Abnormal Lab Results - Last 24 Hours (Table) 05/15/20 05/15/20 05/15/20 Range/Units 11:55 11:55 11:55 Neutrophils # (Manual) 8.00 H (1.3-7.7) k/uL Lymphocytes # (Manual) 0.55 L (1.0-4.8) k/uL Metamyelocytes # (Man) 0.09 H (0) k/uL PT 13.8 H (9.0-12.0) sec INR 1.4 H (<1.2) D-Dimer 17.83 H (<0.60) mg/L FEU Chloride 112 H (96-109) mmol/L Carbon Dioxide 19.5 L (21.6-31.8) mmol/L BUN 41.0 H (9.0-27.0) mg/dL Est GFR (CKD-EPI)AfAm 58.5 L (60.0-200.0) Est GFR (CKD-EPI)NonAf 50.5 L (60.0-200.0) BUN/Creatinine Ratio 31.54 H (12.00-20.00) Ratio Glucose 114 H (70-110) mg/dL Calcium 8.4 L (8.7-10.3) mg/dL Ferritin 486.9 H (22.0-322.0) ng/mL Lactate Dehydrogenase 386 H (120-246) U/L C-Reactive Protein 3.9 H (0.0-0.8) mg/dL Total Protein 5.4 L (6.2-8.2) g/dL Albumin 3.40 L (3.80-4.90) g/dL Assessment and Plan Assessment: Acute bilateral [place] 19 pneumonia Acute hypoxic respiratory failure secondary to the above , worsening acute renal failure secondary to the above and dehydration, improving Hypertension Hypothyroidism Unspecified dementia with behavioral disturbance History of oral cancer Sinus bradycardia, asymptomatic Plan: Continue on current medication regime ,monitoring and symptomatic treatment. Stat chest x-ray and labs ordered. Maintain supportive care. Transfer to ICU. Pulmonary/supercharger repair supervisor and PCP notified. Prognosis guarded given multiple complex medical issues. The impression and plan of care has been dictated as directed. : I performed a history and examination of this patient, discussed the same with the dictator. I agree with the dictator's note ,documented as a scribe. Any additional findings or plans will be noted.
[2020-05-16] MEDS: ASCORBIC ACID 500 MG TAB PO SCH (13:15)
[2020-05-16] MEDS: DONEPEZIL 10 MG TAB PO SCH (13:16)
[2020-05-16] MEDS: CYANOCOBALAMIN 500 MCG TAB PO SCH (13:16)
[2020-05-16] MEDS: MEMANTINE 10 MG TAB PO SCH ×3 (13:17→23:14)
[2020-05-16] MEDS: PANTOPRAZOLE 40 MG TABLET PO SCH (13:17)
[2020-05-16] MEDS: ZINC SULFATE 220 MG CAP PO SCH (13:17)
[2020-05-16] MEDS: METOPROLOL TARTRATE 12.5 MG TAB PO SCH ×2 (13:17→22:23)
[2020-05-16] MEDS: LORATADINE 10 MG TAB PO SCH (13:17)
[2020-05-16] MEDS: ENOXAPARIN 40 MG/0.4 ML SYRINGE SQ SCH (13:17)
[2020-05-16 13:38] LABS: Basophils # (A) 0.1 k/uL (0-0.2); Basophils % (A) 1 %; Eosinophils % (A) 1 %; HCT 52.2 % (39.0-53.0); HGB 16.4 gm/dL (13.0-17.5); Hypochromasia Slight; Lymphocytes # (A) 0.2 k/uL (1.0-4.8); Lymphocytes % (A) 3 %; MCH 27.6 pg (25.0-35.0); MCHC 31.5 g/dL (31.0-37.0); MCV 87.8 fL (80.0-100.0); Mean Platelet Volume 8.9; Monocytes # (A) 0.6 k/uL (0-1.0); Monocytes % (A) 6 %; Neutrophils # (A) 8.4 k/uL (1.3-7.7); Neutrophils % (A) 90 %; Platelet Count 150 k/uL (150-450); RBC 5.94 m/uL (4.30-5.90); RDW 14.6 % (11.5-15.5); WBC 9.4 k/uL (3.8-10.6)
[2020-05-16 13:49] LABS: ALT 21 U/L (4-49); African American GFR (CKD) 59 (>60 ml/min/1.73 sqM); Albumin 2.9 g/dL (3.5-5.0); Anion Gap 7 mmol/L; Blood Urea Nitrogen 32 mg/dL (9-20); Calcium 8.1 mg/dL (8.4-10.2); Carbon Dioxide 19 mmol/L (22-30); Chloride 111 mmol/L (98-107); Globulin 2.9 g/dL; Glucose 111 mg/dL (74-99); Non-African American GFR(CKD) 51 (>60 ml/min/1.73 sqM); Sodium 137 mmol/L (137-145); Total Bilirubin 1.2 mg/dL (0.2-1.3); Total Protein 5.8 g/dL (6.3-8.2)
[2020-05-16 13:56] LABS: AST 37 U/L (17-59); Alkaline Phosphatase 82 U/L (38-126); Potassium 4.9 mmol/L (3.5-5.1)
[2020-05-16] MEDS: CHOLECALCIFEROL 400 UNIT TAB PO SCH (14:03)
--- NOTE | 2020-05-16 15:31 | P.PN ---
Subjective Progress Note Date: 05/16/20 Principal diagnosis: Acute hypoxic history failure [place] in 19 pneumonia bilateral Acute kidney injury likely related to intravascular depletion and dehydration Hypertension hypertensive cardiovascular disease Hypothyroidism History of oral cancer 05/16/2020, patient seen eval examined during the rounds labs reviewed medications reviewed care plan discussed, denies any chest pain, however patient's respiratory status got worse early in the morning FiO2 increase from 2 L up to 15 L high flow oxygen along with nonrebreather mask with that saturation 90-94%, chest x-ray stat portable performed reviewed, showing worsening of airspace disease more so on the right side compared to left side, 05/15/2020, patient seen eval examined during rounds labs reviewed medications r eviewed appetite has been poor, oxygenation however been stable for 2 L, today is the last dose of IV Remdesivir, oxygen saturation remains stable asymptomatic bradycardia however has been noted, 96% on 2 L, 05/14/2020, patient seen eval examined during the rounds labs reviewed medications reviewed, remains on therapy, on 2 L oxygen saturation have been stable, but does feel short of breath saturation is 95%, 05/13/2020, patient seen eval examined during rounds labs reviewed medications reviewed care plan discussed, patient is still complaining or shortness of breath she he is on 2 L oxygen oxygen saturation have been stable, remains afebrile with stable hemodynamics, 91% to 95% on current oxygen, patient remain on Hexadrol along with IV REMdesivir 05/12/2020, patient seen eval examined during the rounds labs reviewed medications reviewed shortness of breath still there on 2 L oxygen, confusion stable somewhat agitated but mental status have improved compared, bedside sitter is present, BUN/creatinine improved to 48 and 1.5, This is a 84-year-old male resident [facility], came into the hospital with altered mental status, for the last 3 days patient has not been eating very weak fatigued and tired, EMS was notified brought into the hospital for further evaluation, his saturation on room air was 90%, afebrile no arrival, patient has significant history of oral cancer, 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 dementia and Alzheimer's disease, his BUN/creatinine is 59 and 2.3, warner virus PCR positive, CT head chronic old cerebral atrophic and small vascular changes were noted, chest x-ray showed bilateral multifocal patchy infiltrate right side more than the left side consistent with covid 19 pneumonia Objective - Vital Signs Vital signs: Vital Signs Temp 97.0 F L 05/16/20 10:05 Pulse 84 05/16/20 10:05 Resp 20 05/16/20 10:05 BP 163/74 05/16/20 10:05 Pulse Ox 93 L 05/16/20 10:05 Intake & Output 05/15/20 05/16/20 05/16/20 18:59 06:59 18:59 Intake Total 1075 Balance 1075 Weight 73.028 kg Intake: Intake, IV Titration 1075 Amount Remdesivir 100 mg In 250 Sodium Chloride 0.9% 250 ml @ 250 mls/hr IVPB DAILY@1300 [facility] Rx#: [id number] Sodium Chloride 0.9% 1, 825 000 ml @ 75 mls/hr IV . [id number] [facility] Rx#:[id number] Other: Voiding Method Urinal Urinal Urinal Diaper Diaper Diaper Incontinent Incontinent Incontinent # Voids 0 # Bowel Movements 1 0 - Exam - Constitutional General appearance: average body habitus, cooperative, disheveled, mild distress - EENT Eyes: PERRLA Ears: bilateral: normal - Neck Carotids: bilateral: upstroke normal Thyroid: bilateral: normal size - Respiratory Respiratory: bilateral: diminished - Cardiovascular Rhythm: regular Heart sounds: normal: S1, S2 - Gastrointestinal General gastrointestinal: normal bowel sounds, soft - Integumentary Integumentary: decreased turgor - Neurologic Neurologic: CNII-XII intact - Musculoskeletal Musculoskeletal: gait normal, generalized weakness, strength equal bilaterally - Labs CBC & Chem 7: 05/16/20 13:06 05/16/20 13:06 Labs: Abnormal Lab Results - Last 24 Hours (Table) 05/15/20 05/15/20 05/16/20 Range/Units 11:55 11:55 13:06 RBC 5.94 H (4.30-5.90) m/uL Neutrophils # 8.4 H (1.3-7.7) k/uL Lymphocytes # 0.2 L (1.0-4.8) k/uL PT 13.8 H (9.0-12.0) sec INR 1.4 H (<1.2) Chloride 112 H (96-109) mmol/L Carbon Dioxide 19.5 L (21.6-31.8) mmol/L BUN 41.0 H (9.0-27.0) mg/dL Creatinine (0.66-1.25) mg/dL Est GFR (CKD-EPI)AfAm 58.5 L (60.0-200.0) Est GFR (CKD-EPI)NonAf 50.5 L (60.0-200.0) BUN/Creatinine Ratio 31.54 H (12.00-20.00) Ratio Glucose 114 H (70-110) mg/dL Calcium 8.4 L (8.7-10.3) mg/dL Ferritin 486.9 H (22.0-322.0) ng/mL Lactate Dehydrogenase 386 H (120-246) U/L C-Reactive Protein 3.9 H (0.0-0.8) mg/dL Total Protein 5.4 L (6.2-8.2) g/dL Albumin 3.40 L (3.80-4.90) g/dL 05/16/20 Range/Units 13:06 RBC (4.30-5.90) m/uL Neutrophils # (1.3-7.7) k/uL Lymphocytes # (1.0-4.8) k/uL PT (9.0-12.0) sec INR (<1.2) Chloride 111 H (96-109) mmol/L Carbon Dioxide 19 L (21.6-31.8) mmol/L BUN 32 H (9.0-27.0) mg/dL Creatinine 1.30 H (0.66-1.25) mg/dL Est GFR (CKD-EPI)AfAm (60.0-200.0) Est GFR (CKD-EPI)NonAf (60.0-200.0) BUN/Creatinine Ratio (12.00-20.00) Ratio Glucose 111 H (70-110) mg/dL Calcium 8.1 L (8.7-10.3) mg/dL Ferritin (22.0-322.0) ng/mL Lactate Dehydrogenase (120-246) U/L C-Reactive Protein (0.0-0.8) mg/dL Total Protein 5.8 L (6.2-8.2) g/dL Albumin 2.9 L (3.80-4.90) g/dL Assessment and Plan Assessment: Acute hypoxic history failure [place] in 19 pneumonia bilateral with cytokine jimi Acute kidney injury likely related to intravascular depletion and dehydration Hypertension hypertensive cardiovascular disease Hypothyroidism History of oral cancer Plan: Check inflammatory parameters as needed Deep breathing sense incentive spirometry Prone positioning IV Decadron IV Remdesivir for 5 days Supplemental oxygen Gentle rehydration Monitor renal functions closely Anticoagulation with Lovenox Check inflammatory parameters Zinc vitamin C and vitamin D supplements Further recommendations pending plan of care as per clinical response of patient Time with Patient: Greater than 30
[2020-05-16] MEDS: MELATONIN 5 MG TABLET PO SCH (23:14)
[2020-05-17] MEDS: SODIUM CHLORIDE 0.9% 1,000 ML IV SCH ×3 (07:00→19:20)
[2020-05-17] MEDS: LEVOTHYROXINE 50 MCG TAB PO SCH (07:09)
--- NOTE | 2020-05-17 07:59 | XR ---
EXAMINATION TYPE: XR chest 1V portable DATE OF EXAM: 05/17/2020 Comparison: 05/16/2020 Clinical History: 84-year-old male Shortness of breath Findings: Multifocal patchy and linear airspace opacity in the right and also within the periphery of the left midlung. There may be minimal improvement on the right. No sizable effusion. Heart normal size. Impression: Extensive airspace disease throughout the right lung may be minimally improved. Focal infiltrate adina pheral left midlung is similar.
[2020-05-17] MEDS: METOPROLOL TARTRATE 12.5 MG TAB PO SCH ×3 (08:53→20:51)
[2020-05-17] MEDS: LORATADINE 10 MG TAB PO SCH (08:53)
[2020-05-17] MEDS: dexAMETHasone 2 MG TAB PO SCH (08:53)
[2020-05-17] MEDS: ASCORBIC ACID 500 MG TAB PO SCH (08:53)
[2020-05-17] MEDS: PANTOPRAZOLE 40 MG TABLET PO SCH (08:54)
[2020-05-17] MEDS: ZINC SULFATE 220 MG CAP PO SCH (08:54)
[2020-05-17] MEDS: CYANOCOBALAMIN 500 MCG TAB PO SCH (08:54)
[2020-05-17] MEDS: amLODIPine 5 MG TAB PO SCH (08:54)
[2020-05-17] MEDS: ENOXAPARIN 40 MG/0.4 ML SYRINGE SQ SCH (08:54)
--- NOTE | 2020-05-17 09:35 | P.PN ---
Subjective Progress Note Date: 05/17/20 Principal diagnosis: Acute hypoxic history failure [place] in 19 pneumonia bilateral Acute kidney injury likely related to intravascular depletion and dehydration Hypertension hypertensive cardiovascular disease Hypothyroidism History of oral cancer 05/17/2020, patient seen eval examined during the rounds labs reviewed medications reviewed patient remains on 100% oxygen on 15 clear high flow, oxygen saturation is stable into mid 90s, and request has been initiated for convalescent plasma, patient is status post IV REMdesivir, has been on Decadron, oxygen saturation stable 97%, extensive pneumonia in the right side some patchy infiltrate on the left base 05/16/2020, patient seen eval examined during the rounds labs reviewed medications reviewed care plan discussed, denies any chest pain, however patient's respiratory status got worse early in the morning FiO2 increase from 2 L up to 15 L high flow oxygen along with nonrebreather mask with that saturation 90-94%, chest x-ray stat portable performed reviewed, showing worsening of airspace disease more so on the right side compared to left side, 05/15/2020, patient seen eval examined during rounds labs reviewed medications reviewed appetite has been poor, oxygenation however been stable for 2 L, today is the last dose of IV Remdesivir, oxygen saturation remains stable asymptomatic bradycardia however has been noted, 96% on 2 L, 05/14/2020, patient seen eval examined during the rounds labs reviewed medicat ions reviewed, remains on therapy, on 2 L oxygen saturation have been stable, but does feel short of breath saturation is 95%, 05/13/2020, patient seen eval examined during rounds labs reviewed medications reviewed care plan discussed, patient is still complaining or shortness of breath she he is on 2 L oxygen oxygen saturation have been stable, remains afebrile with stable hemodynamics, 91% to 95% on current oxygen, patient remain on Hexadrol along with IV REMdesivir 05/12/2020, patient seen eval examined during the rounds labs reviewed medications reviewed shortness of breath still there on 2 L oxygen, confusion stable somewhat agitated but mental status have improved compared, bedside s itter is present, BUN/creatinine improved to 48 and 1.5, This is a 84-year-old male [facility], came into the hospital with altered mental status, for the last 3 days patient has not been eating very weak fatigued and tired, EMS was notified brought into the hospital for further evalu ation, his saturation on room air was 90%, afebrile no arrival, patient has significant history of oral cancer, 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 dementia and Alzheimer's disease, his BUN/creatinine is 59 and 2.3, warner virus PCR positive, CT head chronic old cerebral atrophic and small vascular changes were noted, chest x-ray showed bilateral multifocal patchy infiltrate right side more than the left side consistent with covid 19 pneumonia Objective - Vital Signs Vital signs: Vital Signs Temp 97.9 F 05/17/20 08:00 Pulse 47 L 05/17/20 08:00 Resp 18 05/17/20 08:00 BP 159/60 05/17/20 08:00 Pulse Ox 97 05/17/20 08:00 Intake & Output 05/16/20 05/17/20 05/17/20 18:59 06:59 18:59 Intake Total 945 75 Output Total 470 35 Balance 475 40 Weight 75.5 kg Intake: Intake, IV Titration 825 75 Amount Sodium Chloride 0.9% 1, 825 75 000 ml @ 75 mls/hr IV . [id number] [facility] Rx#:[id number] Oral 120 Output: Urine 470 35 Other: Voiding Method Urinal Indwelling Catheter Diaper Incontinent # Voids 1 - Exam - Constitutional General appearance: average body habitus, cooperative, disheveled, mild distress - EENT Eyes: PERRLA Ears: bilateral: normal - Neck Carotids: bilateral: upstroke normal Thyroid: bilateral: normal size - Respiratory Respiratory: bilateral: diminished - Cardiovascular Rhythm: regular Heart sounds: normal: S1, S2 - Gastrointestinal General gastrointestinal: normal bowel sounds, soft - Integumentary Integumentary: decreased turgor - Neurologic Neurologic: CNII-XII intact - Musculoskeletal Musculoskeletal: gait normal, generalized weakness, strength equal bilaterally - Labs CBC & Chem 7: 05/16/20 13:06 05/16/20 13:06 Labs: Abnormal Lab Results - Last 24 Hours (Table) 05/16/20 05/16/20 Range/Units 13:06 13:06 RBC 5.94 H (4.30-5.90) m/uL Neutrophils # 8.4 H (1.3-7.7) k/uL Lymphocytes # 0.2 L (1.0-4.8) k/uL Chloride 111 H (98-107) mmol/L Carbon Dioxide 19 L (22-30) mmol/L BUN 32 H (9-20) mg/dL Creatinine 1.30 H (0.66-1.25) mg/dL Glucose 111 H (74-99) mg/dL Calcium 8.1 L (8.4-10.2) mg/dL Total Protein 5.8 L (6.3-8.2) g/dL Albumin 2.9 L (3.5-5.0) g/dL Assessment and Plan Assessment: Acute hypoxic history failure [place] in 19 pneumonia bilateral with cytokine jimi Acute kidney injury likely related to intravascular depletion and dehydration Hypertension hypertensive cardiovascular disease Hypothyroidism History of oral cancer Plan: Check inflammatory parameters as needed Deep breathing sense incentive spirometry Prone positioning IV Decadron IV Remdesivir for 5 days Supplemental oxygen Gentle rehydration Monitor renal functions closely Anticoagulation with Lovenox Check inflammatory parameters Zinc vitamin C and vitamin D supplements Further recommendations pending plan of care as per clinical response of patient Time with Patient: Greater than 30
[2020-05-17 10:21] LABS: Basophils % (A) 0 %; Eosinophils % (A) 0 %; HCT 49.8 % (39.0-53.0); HGB 15.6 gm/dL (13.0-17.5); Lymphocytes # (A) 0.4 k/uL (1.0-4.8); Lymphocytes % (A) 5 %; MCH 27.3 pg (25.0-35.0); MCHC 31.4 g/dL (31.0-37.0); MCV 86.9 fL (80.0-100.0); Mean Platelet Volume 9.4; Monocytes # (A) 0.4 k/uL (0-1.0); Monocytes % (A) 5 %; Neutrophils # (A) 8.3 k/uL (1.3-7.7); Neutrophils % (A) 90 %; Platelet Count 109 k/uL (150-450); RBC 5.73 m/uL (4.30-5.90); RDW 14.7 % (11.5-15.5); WBC 9.2 k/uL (3.8-10.6)
[2020-05-17 10:23] LABS: Albumin 2.7 g/dL (3.5-5.0); Calcium 8.2 mg/dL (8.4-10.2); Magnesium 1.6 mg/dL (1.6-2.3); Potassium 4.5 mmol/L (3.5-5.1); Total Bilirubin 1.4 mg/dL (0.2-1.3); Total Protein 5.3 g/dL (6.3-8.2)
[2020-05-17 10:25] LABS: D-Dimer 29.61 mg/L FEU (<0.60); INR 1.4 (<1.2); Prothrombin Time 14.3 sec (9.0-12.0)
[2020-05-17 10:43] LABS: C Reactive Protein 199.1 mg/L (<10.0)
--- NOTE | 2020-05-17 11:21 | P.PN ---
Subjective Progress Note Date: 05/17/20 Principal diagnosis: Novel coronavirus 19 pneumonia bilateral Acute kidney injury due to intravascular depletion and dehydration Essential hypertension, hypertensive cardiovascular disease The patient was transferred to the intensive care unit yesterday is currently on 100% O2 15 clear high flow oxygen saturation stable to the mid 90s crest has been placed for convalescing plasma patient is status post IV REMsevere, Decadron O2 sats are stable right patchy infiltrate noted some mild patchy infiltrate on the left Objective - Vital Signs Vital signs: Vital Signs Temp 97.9 F 05/17/20 08:00 Pulse 47 L 05/17/20 08:00 Resp 18 05/17/20 08:00 BP 159/60 05/17/20 08:00 Pulse Ox 97 05/17/20 08:00 Intake & Output 05/16/20 05/17/20 05/17/20 18:59 06:59 18:59 Intake Total 945 75 Output Total 470 35 Balance 475 40 Weight 75.5 kg Intake: Intake, IV Titration 825 75 Amount Sodium Chloride 0.9% 1, 825 75 000 ml @ 75 mls/hr IV . [id number] [facility] Rx#:[id number] Oral 120 Output: Urine 470 35 Other: Voiding Method Urinal Indwelling Catheter Diaper Incontinent # Voids 1 - Exam General: [Patient awake, alert and oriented times 1. Patient in no acute distress however patient is somewhat agitated HEENT: [PERRL. EOMI. No pharyngeal erythema or exudate.] Neck: [No adenopathy.] Cardiac: [Heart regular in rate and rhythm. No S3. No S4. No clicks, rubs. No murmur.] Lungs: Diminished breath sounds bilaterally Abdomen: [No mass. No organomegaly. Bowel sounds presnt and normoactive in all 4 quadrants.] Extremes: [No edema no cyanosis no claudication normal pulses] : Normal male genitalia Musculoskeletal: [No joint erythema, edema or tenderness.] Skin: [No rash.] Neurologic: [No lateralizing deficits. CN II - XII grossly intact.] Lymphatic: [No adenopathy.] - Labs CBC & Chem 7: 05/17/20 09:36 05/17/20 09:36 Labs: Abnormal Lab Results - Last 24 Hours (Table) 05/16/20 05/16/20 05/17/20 Range/Units 13:06 13:06 09:36 RBC 5.94 H (4.30-5.90) m/uL Plt Count 109 L (150-450) k/uL Neutrophils # 8.4 H 8.3 H (1.3-7.7) k/uL Lymphocytes # 0.2 L 0.4 L (1.0-4.8) k/uL PT (9.0-12.0) sec INR (<1.2) D-Dimer (<0.60) mg/L FEU Chloride 111 H (98-107) mmol/L Carbon Dioxide 19 L (22-30) mmol/L BUN 32 H (9-20) mg/dL Creatinine 1.30 H (0.66-1.25) mg/dL Glucose 111 H (74-99) mg/dL Calcium 8.1 L (8.4-10.2) mg/dL Total Bilirubin (0.2-1.3) mg/dL Lactate Dehydrogenase (313-618) U/L Creatine Kinase (55-170) U/L Troponin I (0.000-0.034) ng/mL C-Reactive Protein (<10.0) mg/L Total Protein 5.8 L (6.3-8.2) g/dL Albumin 2.9 L (3.5-5.0) g/dL 05/17/20 05/17/20 05/17/20 Range/Units 09:36 09:36 09:36 RBC (4.30-5.90) m/uL Plt Count (150-450) k/uL Neutrophils # (1.3-7.7) k/uL Lymphocytes # (1.0-4.8) k/uL PT 14.3 H (9.0-12.0) sec INR 1.4 H (<1.2) D-Dimer 29.61 H (<0.60) mg/L FEU Chloride 110 H (98-107) mmol/L Carbon Dioxide (22-30) mmol/L BUN 30 H (9-20) mg/dL Creatinine 1.27 H (0.66-1.25) mg/dL Glucose 109 H (74-99) mg/dL Calcium 8.2 L (8.4-10.2) mg/dL Total Bilirubin 1.4 H (0.2-1.3) mg/dL Lactate Dehydrogenase 996 H (313-618) U/L Creatine Kinase 43 L (55-170) U/L Troponin I 0.061 H* (0.000-0.034) ng/mL C-Reactive Protein 199.1 H (<10.0) mg/L Total Protein 5.3 L (6.3-8.2) g/dL Albumin 2.7 L (3.5-5.0) g/dL Assessment and Plan (1) [place] (acute kidney injury) Current Visit: Yes Status: Acute Code(s): N17.9 - ACUTE KIDNEY FAILURE, UNSPECIFIED SNOMED Code(s): 60355736 (2) Altered mental status Current Visit: Yes Status: Acute Code(s): R41.82 - ALTERED MENTAL STATUS, UNSPECIFIED SNOMED Code(s): 464999194 (3) COVID-19 virus detected Current Visit: Yes Status: Acute Code(s): U07.1 - COVID-19 SNOMED Code(s): 4221375237984264 (4) Hypothyroidism, unspecified Current Visit: Yes Status: Acute Code(s): E03.9 - HYPOTHYROIDISM, UNSPECIFIED SNOMED Code(s): 64012440 (5) Hypoxia Current Visit: Yes Status: Acute Code(s): R09.02 - HYPOXEMIA SNOMED Code(s): 067782231 (6) Pneumonia due to COVID-19 virus Current Visit: Yes Status: Acute Code(s): U07.1 - COVID-19; J12.89 - OTHER VIRAL PNEUMONIA SNOMED Code(s): 032320090396054113 (7) Unspecified dementia with behavioral disturbance Current Visit: Yes Status: Acute Code(s): F03.91 - UNSPECIFIED DEMENTIA WITH BEHAVIORAL DISTURBANCE SNOMED Code(s): 8803748179259 Plan: Continue inflammatory parameter evaluations Continue incentive spirometry Prone positioning Continue IV Decadron I'm decimeter IV for 5 days Supportive supplemental oxygen Judicious rehydration Monitor renal functions Anticoagulation with Lovenox Zinc vitamin C and vitamin D supplementation Time with Patient: Greater than 30
[2020-05-17] MEDS: CHOLECALCIFEROL 400 UNIT TAB PO SCH (12:47)
[2020-05-17] MEDS: DONEPEZIL 10 MG TAB PO SCH (12:48)
[2020-05-17] MEDS: HALOPERIDOL LACTATE 5 MG/ML 1 ML VIAL IM PRN (13:58)
--- NOTE | 2020-05-17 13:59 | CONS ---
ALEENA Vaca is an 84-year-old gentleman who is admitted to hospital on May 10 with weakness and altered mental sensorium subsequently had been diagnosed with Covid and is currently in the ICU. We checked a troponin on him. It came back elevated for which Cardiology has been consulted. He has acute kidney injury, Covid bilateral pneumonia and acute hypoxic respiratory failure. He lives in a correction and has dementia and underlying Alzheimer's. His troponin initially was 0.048 has come down to 0.03 and has had another level that was 0.06. He had an echo done on this admission that revealed normal LV function and dilated aortic root at 5.0 cm. This morning he is chest pain free and does not seem to be in respiratory distress and stable hemodynamically. Heart rate is around 50 beats per minute. Blood pressure is 155/59, respiratory rate is 18. O2 saturation is 93% on 15 L high-flow. I did not do any physical exam on this patient secondary to Covid and need to preserve the personal protective equipment. PAST MEDICAL HISTORY: Significant for dementia, hypothyroidism. MEDICATIONS: Medications at home include vitamins, Lopressor, Synthroid, Claritin. ALLERGIES: PENICILLIN. FAMILY HISTORY: Family history, social history unable to obtain from the patient. REVIEW OF SYSTEMS: Unable to obtain from the patient. PHYSICAL EXAM: Heart rate is 47 beats per minute. Blood pressure is 159/60. Respiratory rate is 18. There is a chest x-ray on him revealed bilateral extensive airspace disease. His recent echocardiogram revealed normal LV function with dilated aortic root. He does not have any leg edema. LAB: Show a hemoglobin of 15.6, platelet count is 109. INR is elevated at 1.4. Potassium is 4.9. Creatinine is 1.2. Troponins are as described above. His EKG showed sinus rhythm with poor R-wave progression. ASSESSMENT: 1. Elevated troponin probably related to the recent Covid infection. The patient did not have a myocardial infarction. 2. Covid pneumonia. 3. Respiratory failure. 4. Renal failure. PLAN: Continue with the supportive care. MMZANEL / JAKEN: [id number] /
[2020-05-17 18:28] LABS: Ferritin 664.2 ng/mL (22.0-322.0)
[2020-05-17] MEDS: MEMANTINE 10 MG TAB PO SCH (20:34)
[2020-05-17] MEDS: MELATONIN 5 MG TABLET PO SCH (20:34)
[2020-05-18] MEDS: LEVOTHYROXINE 50 MCG TAB PO SCH (06:23)
[2020-05-18 06:53] LABS: Basophils # (A) 0.1 k/uL (0-0.2); Basophils % (A) 1 %; Eosinophils # (A) 0.2 k/uL (0-0.7); Eosinophils % (A) 3 %; HCT 50.7 % (39.0-53.0); HGB 15.8 gm/dL (13.0-17.5); Hypochromasia Slight; Lymphocytes # (A) 0.2 k/uL (1.0-4.8); Lymphocytes % (A) 3 %; MCH 27.6 pg (25.0-35.0); MCHC 31.1 g/dL (31.0-37.0); MCV 88.8 fL (80.0-100.0); Mean Platelet Volume 9.2; Monocytes # (A) 0.3 k/uL (0-1.0); Monocytes % (A) 3 %; Neutrophils # (A) 7.9 k/uL (1.3-7.7); Neutrophils % (A) 91 %; RDW 14.9 % (11.5-15.5); WBC 8.6 k/uL (3.8-10.6)
[2020-05-18 07:14] LABS: Albumin 2.9 g/dL (3.5-5.0); Calcium 8.2 mg/dL (8.4-10.2); Total Bilirubin 1.3 mg/dL (0.2-1.3); Total Protein 5.8 g/dL (6.3-8.2)
[2020-05-18 07:15] LABS: Potassium 4.9 mmol/L (3.5-5.1)
[2020-05-18 07:23] LABS: Anisocytosis (M) Present; Crenated RBC Present; Platelet Count 92 k/uL (150-450); Poikilocytosis (M) Present
[2020-05-18 07:38] LABS: C Reactive Protein 232.6 mg/L (<10.0)
--- NOTE | 2020-05-18 08:42 | XR ---
EXAMINATION TYPE: XR chest 1V portable DATE OF EXAM: 05/18/2020 Comparison: 05/17/2020 Clinical History: 84-year-old male Shortness of breath Findings: Heart normal size. Asymmetric elevation right hemidiaphragm. Patchy and confluent airspace opacity th roughout the right lung. Focal peripheral left midlung and left basilar opacity slightly increased. Impression: Infiltrates throughout the right lung are similar. Patchy infiltrates left mid and lower lung minimal ly worsened.
[2020-05-18] MEDS: LORATADINE 10 MG TAB PO SCH (09:24)
[2020-05-18] MEDS: CYANOCOBALAMIN 500 MCG TAB PO SCH (09:24)
[2020-05-18] MEDS: METOPROLOL TARTRATE 12.5 MG TAB PO SCH ×2 (09:24→20:46)
[2020-05-18] MEDS: ENOXAPARIN 40 MG/0.4 ML SYRINGE SQ SCH (09:24)
[2020-05-18] MEDS: ZINC SULFATE 220 MG CAP PO SCH (09:24)
[2020-05-18] MEDS: dexAMETHasone 2 MG TAB PO SCH (09:24)
[2020-05-18] MEDS: ASCORBIC ACID 500 MG TAB PO SCH (09:24)
[2020-05-18] MEDS: PANTOPRAZOLE 40 MG TABLET PO SCH (09:24)
[2020-05-18] MEDS: amLODIPine 5 MG TAB PO SCH (09:24)
[2020-05-18] MEDS: SODIUM CHLORIDE 0.9% 1,000 ML IV SCH ×2 (09:25→22:22)
[2020-05-18] MEDS: DONEPEZIL 10 MG TAB PO SCH (09:25)
[2020-05-18] MEDS: MEMANTINE 10 MG TAB PO SCH ×2 (09:25→20:48)
--- NOTE | 2020-05-18 09:32 | P.PN ---
Subjective Progress Note Date: 05/18/20 HISTORY OF PRESENT ILLNESS: This is an 84-year-old male who is currently admitted to hospital secondary to altered mental status, acute hypoxic respiratory failure, and Covid bilateral pneumonia. Patient remains on 15 L high flow nasal cannula with oxygen saturations greater than 92%. Blood pressure stable at 137/52. Chest x-ray this morning reveals infiltrates throughout the right lung that are similar. Patchy infiltrates left mid and lower lung minimally worsened. PHYSICAL EXAM: Thorough physical exam not completed secondary to limited evaluation/examination and due to Covid19 ASSESSMENT: Covid 19 pneumonia Elevated troponin, secondary to above, acute coronary syndrome ruled out Acute hypoxic respiratory failure Acute kidney injury Altered mental status PLAN: Continue current medication regimen No further intervention from a cardiac standpoint. We will sign off. Please reconsult if needed. Nurse practitioner note has been reviewed by physician. Signing provider agrees with the documented findings, assessment, and plan of care. Objective - Vital Signs Vital signs: Vital Signs Temp 98.1 F 05/18/20 04:00 Pulse 49 L 05/18/20 07:00 Resp 20 05/18/20 07:00 BP 137/52 05/18/20 07:00 Pulse Ox 93 L 05/18/20 07:00 Intake & Output 05/17/20 05/18/20 05/18/20 18:59 06:59 18:59 Intake Total 1542 925 75 Output Total 525 505 50 Balance 1017 420 25 Weight 76.6 kg Intake: Intake, IV Titration 975 825 75 Amount Sodium Chloride 0.9% 1, 975 825 75 000 ml @ 75 mls/hr IV . [id number] [facility] Rx#:[id number] Oral 350 100 Blood Product 217 Ffp Pher Conval Covid19 217 Acda 3 Unit [id number] Output: Urine 525 505 50 Other: Voiding Method Indwelling Catheter Indwelling Catheter - Labs CBC & Chem 7: 05/18/20 06:45 05/18/20 06:45 Labs: Abnormal Lab Results - Last 24 Hours (Table) 05/17/20 05/17/20 05/17/20 Range/Units 09:36 09:36 09:36 Plt Count 109 L (150-450) k/uL Neutrophils # 8.3 H (1.3-7.7) k/uL Lymphocytes # 0.4 L (1.0-4.8) k/uL PT 14.3 H (9.0-12.0) sec INR 1.4 H (<1.2) D-Dimer 29.61 H (<0.60) mg/L FEU Chloride 110 H (98-107) mmol/L Carbon Dioxide (22-30) mmol/L BUN 30 H (9-20) mg/dL Creatinine 1.27 H (0.66-1.25) mg/dL Glucose 109 H (74-99) mg/dL Calcium 8.2 L (8.4-10.2) mg/dL Ferritin 664.2 H (22.0-322.0) ng/mL Total Bilirubin 1.4 H (0.2-1.3) mg/dL Lactate Dehydrogenase 996 H (313-618) U/L Creatine Kinase 43 L (55-170) U/L Troponin I (0.000-0.034) ng/mL C-Reactive Protein 199.1 H (<10.0) mg/L Total Protein 5.3 L (6.3-8.2) g/dL Albumin 2.7 L (3.5-5.0) g/dL 05/17/20 05/18/20 05/18/20 Range/Units 09:36 06:45 06:45 Plt Count 92 L (150-450) k/uL Neutrophils # 7.9 H (1.3-7.7) k/uL Lymphocytes # 0.2 L (1.0-4.8) k/uL PT (9.0-12.0) sec INR (<1.2) D-Dimer (<0.60) mg/L FEU Chloride 111 H (98-107) mmol/L Carbon Dioxide 20 L (22-30) mmol/L BUN 31 H (9-20) mg/dL Creatinine (0.66-1.25) mg/dL Glucose 152 H (74-99) mg/dL Calcium 8.2 L (8.4-10.2) mg/dL Ferritin (22.0-322.0) ng/mL Total Bilirubin (0.2-1.3) mg/dL Lactate Dehydrogenase (313-618) U/L Creatine Kinase 30 L (55-170) U/L Troponin I 0.061 H* (0.000-0.034) ng/mL C-Reactive Protein 232.6 H (<10.0) mg/L Total Protein 5.8 L (6.3-8.2) g/dL Albumin 2.9 L (3.5-5.0) g/dL
--- NOTE | 2020-05-18 12:38 | P.PN ---
Subjective Progress Note Date: 05/18/20 Principal diagnosis: Novel coronavirus 19 pneumonia bilateral Acute kidney injury due to intravascular depletion and dehydration Essential hypertension, hypertensive cardiovascular disease The patient was transferred to the intensive care unit 2 days ago is currently on 100% O2 15 clear high flow oxygen saturation stable to the mid 90s crest has been placed for convalescing plasma patient is status post IV REMsevere, Decadron O2 sats are stable right patchy infiltrate noted some mild patchy infiltrate on the left Objective - Vital Signs Vital signs: Vital Signs Temp 98.1 F 05/18/20 04:00 Pulse 49 L 05/18/20 07:00 Resp 20 05/18/20 07:00 BP 137/52 05/18/20 07:00 Pulse Ox 93 L 05/18/20 07:00 Intake & Output 05/17/20 05/18/20 05/18/20 18:59 06:59 18:59 Intake Total 1542 925 75 Output Total 525 505 50 Balance 1017 420 25 Weight 76.6 kg Intake: Intake, IV Titration 975 825 75 Amount Sodium Chloride 0.9% 1, 975 825 75 000 ml @ 75 mls/hr IV . [id number] [facility] Rx#:[id number] Oral 350 100 Blood Product 217 Ffp Pher Conval Covid19 217 Acda 3 Unit [id number] Output: Urine 525 505 50 Other: Voiding Method Indwelling Catheter Indwelling Catheter - Exam General: [Patient awake, alert and oriented times 1. Patient in no acute distress however patient is somewhat agitated HEENT: [PERRL. EOMI. No pharyngeal erythema or exudate.] Neck: [No adenopathy.] Cardiac: [Heart regular in rate and rhythm. No S3. No S4. No clicks, rubs. No murmur.] Lungs: Diminished breath sounds bilaterally Abdomen: [No mass. No organomegaly. Bowel sounds presnt and normoactive in all 4 quadrants.] Extremes: [No edema no cyanosis no claudication normal pulses] : Normal male genitalia Musculoskeletal: [No joint erythema, edema or tenderness.] Skin: [No rash.] Neurologic: [No lateralizing deficits. CN II - XII grossly intact.] Lymphatic: [No adenopathy.] - Labs CBC & Chem 7: 05/18/20 06:45 05/18/20 06:45 Labs: Abnormal Lab Results - Last 24 Hours (Table) 05/17/20 05/18/20 05/18/20 Range/Units 09:36 06:45 06:45 Plt Count 92 L (150-450) k/uL Neutrophils # 7.9 H (1.3-7.7) k/uL Lymphocytes # 0.2 L (1.0-4.8) k/uL Chloride 111 H (98-107) mmol/L Carbon Dioxide 20 L (22-30) mmol/L BUN 31 H (9-20) mg/dL Glucose 152 H (74-99) mg/dL Calcium 8.2 L (8.4-10.2) mg/dL Ferritin 664.2 H (22.0-322.0) ng/mL Creatine Kinase 30 L (55-170) U/L C-Reactive Protein 232.6 H (<10.0) mg/L Total Protein 5.8 L (6.3-8.2) g/dL Albumin 2.9 L (3.5-5.0) g/dL Assessment and Plan (1) [place] (acute kidney injury) Current Visit: Yes Status: Acute Code(s): N17.9 - ACUTE KIDNEY FAILURE, UNSPECIFIED SNOMED Code(s): 43787847 (2) Altered mental status Current Visit: Yes Status: Acute Code(s): R41.82 - ALTERED MENTAL STATUS, UNSPECIFIED SNOMED Code(s): 442777963 (3) COVID-19 virus detected Current Visit: Yes Status: Acute Code(s): U07.1 - COVID-19 SNOMED Code(s): 6646230783136246 (4) Hypothyroidism, unspecified Current Visit: Yes Status: Acute Code(s): E03.9 - HYPOTHYROIDISM, UNSPECIFIED SNOMED Code(s): 29349072 (5) Hypoxia Current Visit: Yes Status: Acute Code(s): R09.02 - HYPOXEMIA SNOMED Code(s): 443179493 (6) Pneumonia due to COVID-19 virus Current Visit: Yes Status: Acute Code(s): U07.1 - COVID-19; J12.89 - OTHER VIRAL PNEUMONIA SNOMED Code(s): 287611781065102627 (7) Unspecified dementia with behavioral disturbance Current Visit: Yes Status: Acute Code(s): F03.91 - UNSPECIFIED DEMENTIA WITH BEHAVIORAL DISTURBANCE SNOMED Code(s): 5064949598549 Plan: Continue inflammatory parameter evaluations Continue incentive spirometry Prone positioning Continue IV Decadron I'm decimeter IV for 5 days Supportive supplemental oxygen Judicious rehydration Monitor renal functions Anticoagulation with Lovenox Zinc vitamin C and vitamin D supplementation Time with Patient: Greater than 30
[2020-05-18 12:39] LABS: Ferritin 850.1 ng/mL (22.0-322.0)
[2020-05-18] MEDS: CHOLECALCIFEROL 400 UNIT TAB PO SCH (14:51)
[2020-05-18] MEDS: MELATONIN 5 MG TABLET PO SCH ×2 (20:46→20:47)
--- NOTE | 2020-05-18 23:47 | P.PN ---
Subjective Progress Note Date: 05/18/20 Principal diagnosis: Acute hypoxic history failure [place] in 19 pneumonia bilateral Acute kidney injury likely related to intravascular depletion and dehydration Hypertension hypertensive cardiovascular disease Hypothyroidism History of oral cancer 05/18/2020, patient seen eval examined during rounds labs reviewed medications reviewed remains on 100% nonrebreather mask, oxygen saturation is a 89-90%, pleasantly confused, labs reviewed, medications reviewed and encourage deep breathing exercise incentive spirometry prone positioning if possible 05/17/2020, patient seen eval examined during the rounds labs reviewed medications reviewed patient remains on 100% oxygen on 15 clear high flow, oxygen saturation is stable into mid 90s, and request has been initiated for con valescent plasma, patient is status post IV REMdesivir, has been on Decadron, oxygen saturation stable 97%, extensive pneumonia in the right side some patchy infiltrate on the left base 05/16/2020, patient seen eval examined during the rounds labs reviewed medications reviewed care plan discussed, denies any chest pain, however patient's respiratory status got worse early in the morning FiO2 increase from 2 L up to 15 L high flow oxygen along with nonrebreather mask with that saturation 90-94%, chest x-ray stat portable performed reviewed, showing worsening of airspace disease more so on the right side compared to left side, 05/15/2020, patient seen eval examined during rounds labs reviewed medications reviewed appetite has been poor, oxygenation however been stable for 2 L, today is the last dose of IV Remdesivir, oxygen saturation remains stable asymptomatic bradycardia however has been noted, 96% on 2 L, 05/14/2020, patient seen eval examined during the rounds labs reviewed medic ations reviewed, remains on therapy, on 2 L oxygen saturation have been stable, but does feel short of breath saturation is 95%, 05/13/2020, patient seen eval examined during rounds labs reviewed medications reviewed care plan discussed, patient is still complaining or shortness of breath she he is on 2 L oxygen oxygen saturation have been stable, remains afebrile with stable hemodynamics, 91% to 95% on current oxygen, patient remain on Hexadrol along with IV REMdesivir 05/12/2020, patient seen eval examined during the rounds labs reviewed medications reviewed shortness of breath still there on 2 L oxygen, confusion stable somewhat agitated but mental status have improved compared, bedside sitter is present, BUN/creatinine improved to 48 and 1.5, This is a 84-year-old male resident of a [facility], came into the hospital with altered mental status, for the last 3 days patient has not been eating very weak fatigued and tired, EMS was notified brought into the hospital for further elie luation, his saturation on room air was 90%, afebrile no arrival, patient has significant history of oral cancer, 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 dementia and Alzheimer's disease, his BUN/creatinine is 59 and 2.3, warner virus PCR positive, CT head chronic old cerebral atrophic and small vascular changes were noted, chest x-ray showed bilateral multifocal patchy infiltrate right side more than the left side consistent with covid 19 pneumonia Objective - Vital Signs Vital signs: Vital Signs Temp 98.4 F 05/18/20 20:00 Pulse 49 L 05/18/20 23:00 Resp 25 H 05/18/20 23:00 BP 121/62 05/18/20 23:00 Pulse Ox 100 05/18/20 23:00 Intake & Output 05/18/20 05/18/20 05/19/20 06:59 18:59 06:59 Intake Total 925 1336 375 Output Total 505 515 155 Balance 420 821 220 Weight 76.6 kg Intake: IV 825 375 Sodium Chloride 0.9% 1, 825 375 000 ml @ 75 mls/hr IV . [id number] [facility] Rx#:[id number] Intake, IV Titration 825 75 Amount Sodium Chloride 0.9% 1, 825 75 000 ml @ 75 mls/hr IV . [id number] [facility] Rx#:[id number] Oral 100 436 Output: Urine 505 515 155 Other: Voiding Method Indwelling Catheter Indwelling Catheter Indwelling Catheter - Exam - Constitutional General appearance: average body habitus, cooperative, disheveled, mild distress - EENT Eyes: PERRLA Ears: bilateral: normal - Neck Carotids: bilateral: upstroke normal Thyroid: bilateral: normal size - Respiratory Respiratory: bilateral: diminished - Cardiovascular Rhythm: regular Heart sounds: normal: S1, S2 - Gastrointestinal General gastrointestinal: normal bowel sounds, soft - Integumentary Integumentary: decreased turgor - Neurologic Neurologic: CNII-XII intact - Musculoskeletal Musculoskeletal: gait normal, generalized weakness, strength equal bilaterally - Labs CBC & Chem 7: 05/18/20 06:45 05/18/20 06:45 Labs: Abnormal Lab Results - Last 24 Hours (Table) 05/18/20 05/18/20 Range/Units 06:45 06:45 Plt Count 92 L (150-450) k/uL Neutrophils # 7.9 H (1.3-7.7) k/uL Lymphocytes # 0.2 L (1.0-4.8) k/uL Chloride 111 H (98-107) mmol/L Carbon Dioxide 20 L (22-30) mmol/L BUN 31 H (9-20) mg/dL Glucose 152 H (74-99) mg/dL Calcium 8.2 L (8.4-10.2) mg/dL Ferritin 850.1 H (22.0-322.0) ng/mL Creatine Kinase 30 L (55-170) U/L C-Reactive Protein 232.6 H (<10.0) mg/L Total Protein 5.8 L (6.3-8.2) g/dL Albumin 2.9 L (3.5-5.0) g/dL Assessment and Plan Assessment: Acute hypoxic history failure [place] in 19 pneumonia bilateral with cytokine jimi Acute kidney injury likely related to intravascular depletion and dehydration/acute tubular necrosis however renal functions have been stable Hypertension hypertensive cardiovascular disease Hypothyroidism History of oral cancer Plan: If further desaturation noted patient may need a BiPAP machine Check inflammatory parameters as needed Deep breathing sense incentive spirometry Prone positioning IV Decadron IV Remdesivir for 5 days patient finished Status post convalescent plasma Will keep the fluid balance even or negative side Monitor renal functions closely Anticoagulation with Lovenox Check inflammatory parameters Zinc vitamin C and vitamin D supplements Further recommendations pending plan of care as per clinical response of patient Time with Patient: Greater than 30
[2020-05-19] MEDS: HALOPERIDOL LACTATE 5 MG/ML 1 ML VIAL IM PRN (02:26)
[2020-05-19 04:25] LABS: Basophils # (A) 0.2 k/uL (0-0.2); Basophils % (A) 3 %; Eosinophils # (A) 0.1 k/uL (0-0.7); Eosinophils % (A) 1 %; HCT 42.6 % (39.0-53.0); HGB 13.7 gm/dL (13.0-17.5); Lymphocytes # (A) 0.1 k/uL (1.0-4.8); Lymphocytes % (A) 1 %; MCH 28.2 pg (25.0-35.0); MCHC 32.2 g/dL (31.0-37.0); MCV 87.6 fL (80.0-100.0); Mean Platelet Volume 9.9; Monocytes # (A) 0.7 k/uL (0-1.0); Monocytes % (A) 8 %; Neutrophils # (A) 7.2 k/uL (1.3-7.7); Neutrophils % (A) 87 %; Platelet Count 104 k/uL (150-450); RBC 4.86 m/uL (4.30-5.90); RDW 14.9 % (11.5-15.5); WBC 8.3 k/uL (3.8-10.6)
[2020-05-19 04:36] LABS: ALT 18 U/L (4-49); AST 27 U/L (17-59); African American GFR (CKD) 61 (>60 ml/min/1.73 sqM); Albumin 2.4 g/dL (3.5-5.0); Alkaline Phosphatase 80 U/L (38-126); Anion Gap 3 mmol/L; Blood Urea Nitrogen 38 mg/dL (9-20); Carbon Dioxide 24 mmol/L (22-30); Chloride 111 mmol/L (98-107); Creatine Kinase <20 U/L (55-170); Glucose 147 mg/dL (74-99); Non-African American GFR(CKD) 52 (>60 ml/min/1.73 sqM); Potassium 4.4 mmol/L (3.5-5.1); Sodium 138 mmol/L (137-145); Total Protein 4.9 g/dL (6.3-8.2)
[2020-05-19 04:38] LABS: D-Dimer 6.17 mg/L FEU (<0.60)
[2020-05-19] MEDS: LEVOTHYROXINE 50 MCG TAB PO SCH (07:04)
[2020-05-19] MEDS: METOPROLOL TARTRATE 12.5 MG TAB PO SCH ×3 (09:16→22:59)
[2020-05-19 09:22] LABS: Ferritin 754.4 ng/mL (22.0-322.0)
[2020-05-19] MEDS: ENOXAPARIN 40 MG/0.4 ML SYRINGE SQ SCH (09:34)
[2020-05-19] MEDS: dexAMETHasone 2 MG TAB PO SCH (09:35)
[2020-05-19] MEDS: ZINC SULFATE 220 MG CAP PO SCH (09:35)
[2020-05-19] MEDS: ASCORBIC ACID 500 MG TAB PO SCH (09:35)
[2020-05-19] MEDS: CYANOCOBALAMIN 500 MCG TAB PO SCH (09:35)
[2020-05-19] MEDS: LORATADINE 10 MG TAB PO SCH (09:36)
[2020-05-19] MEDS: MEMANTINE 10 MG TAB PO SCH ×2 (09:36→20:19)
[2020-05-19] MEDS: DONEPEZIL 10 MG TAB PO SCH (09:36)
[2020-05-19] MEDS: amLODIPine 5 MG TAB PO SCH (09:36)
[2020-05-19] MEDS: PANTOPRAZOLE 40 MG TABLET PO SCH (09:39)
--- NOTE | 2020-05-19 10:33 | XR ---
EXAMINATION TYPE: XR chest 1V portable DATE OF EXAM: 05/19/2020 COMPARISON: 05/18/2020 HISTORY: Shortness of breath TECHNIQUE: Single frontal view of the chest is obtained. FINDINGS: Bilateral mixed alveolar and interstitial pattern with small bilateral effusions and basil ar consolidation. Heart size stable. No pneumothorax. Arthropathy of the shoulders. IMPRESSION: Stable bilateral diffuse airspace disease correlate for pneumonia.
[2020-05-19] MEDS: SODIUM CHLORIDE 0.9% 1,000 ML IV SCH (12:37)
[2020-05-19] MEDS: CHOLECALCIFEROL 400 UNIT TAB PO SCH (12:37)
[2020-05-19 12:38] LABS: Glucose,Whole Blood 227 mg/dL (75-99)
--- NOTE | 2020-05-19 15:34 | P.PN ---
Subjective Progress Note Date: 05/19/20 Principal diagnosis: Acute hypoxic history failure [place] in 19 pneumonia bilateral Acute kidney injury likely related to intravascular depletion and dehydration Hypertension hypertensive cardiovascular disease Hypothyroidism History of oral cancer 05/19/2020, patient seen and evaluated examined labs reviewed medications reviewed, oxygenation somewhat improved today, patient on 100% oxygen saturation 88-89%, diffuse bilateral infiltrate noted on today's x-ray consistent with pneumonia 05/18/2020, patient seen eval examined during rounds labs reviewed medications reviewed remains on 100% nonrebreather mask, oxygen saturation is a 89-90%, pleasantly confused, labs reviewed, medications reviewed and encourage deep breathing exercise incentive spirometry prone positioning if possible 05/17/2020, patient seen eval examined during the rounds labs reviewed medications reviewed patient remains on 100% oxygen on 15 clear high flow, oxygen saturation is stable into mid 90s, and request has been initiated for convalescent plasma, patient is status post IV REMdesivir, has been on Decadron, oxygen saturation stable 97%, extensive pneumonia in the right side some patchy infiltrate on the left base 05/16/2020, patient seen eval examined during the rounds labs reviewed medications reviewed care plan discussed, denies any chest pain, however patient's respiratory status got worse early in the morning FiO2 increase from 2 L up to 15 L high flow oxygen along with nonrebreather mask with that saturation 90-94%, chest x-ray stat portable performed reviewed, showing worsening of airspace disease more so on the right side compared to left side, 05/15/2020, patient seen eval examined during rounds labs reviewed medications reviewed appetite has been poor, oxygenation however been stable for 2 L, today is the last dose of IV Remdesivir, oxygen saturation remains stable asymptomatic bradycardia however has been noted, 96% on 2 L, 05/14/2020, patient seen eval examined during the rounds labs reviewed medications reviewed, remains on therapy, on 2 L oxygen saturation have been stable, but does feel short of breath saturation is 95%, 05/13/2020, patient seen eval examined during rounds labs reviewed medications reviewed care plan discussed, patient is still complaining or shortness of breath she he is on 2 L oxygen oxygen saturation have been stable, remains afebrile with stable hemodynamics, 91% to 95% on current oxygen, patient remain on Hexadrol along with IV REMdesivir 05/12/2020, patient seen eval examined during the rounds labs reviewed medications reviewed shortness of breath still there on 2 L oxygen, confusion stable somewhat agitated but mental status have improved compared, bedside sitter is present, BUN/creatinine improved to 48 and 1.5, This is a 84-year-old male resident of a [facility], came into the hospital with altered mental status, for the last 3 days patient has not been eating very weak fatigued and tired, EMS was notified brought into the hospital for further evaluation, his saturation on room air was 90%, afebrile no arrival, patient has significant history of oral cancer, hypertension hypertensive cardiovascular dis ease with hypothyroidism dementia and Alzheimer's disease, his BUN/creatinine is 59 and 2.3, warner virus PCR positive, CT head chronic old cerebral atrophic and small vascular changes were noted, chest x-ray showed bilateral multifocal patchy infiltrate right side more than the left side consistent with covid 19 pneumonia Objective - Vital Signs Vital signs: Vital Signs Temp 97.8 F 05/19/20 12:00 Pulse 88 05/19/20 14:00 Resp 25 H 05/19/20 14:00 BP 103/74 05/19/20 14:00 Pulse Ox 87 L 05/19/20 14:00 Intake & Output 05/18/20 05/19/20 05/19/20 18:59 06:59 18:59 Intake Total 1336 900 930 Output Total 515 455 390 Balance 821 445 540 Weight 79.5 kg 79.5 kg Intake: IV 825 900 450 Sodium Chloride 0.9% 1, 825 900 450 000 ml @ 75 mls/hr IV . [id number] [facility] Rx#:[id number] Intake, IV Titration 75 Amount Sodium Chloride 0.9% 1, 75 000 ml @ 75 mls/hr IV . [id number] [facility] Rx#:[id number] Oral 436 480 Output: Urine 515 455 390 Other: Voiding Method Indwelling Catheter Indwelling Catheter Indwelling Catheter - Exam - Constitutional General appearance: average body habitus, cooperative, disheveled, mild distress - EENT Eyes: PERRLA Ears: bilateral: normal - Neck Carotids: bilateral: upstroke normal Thyroid: bilateral: normal size - Respiratory Respiratory: bilateral: diminished - Cardiovascular Rhythm: regular Heart sounds: normal: S1, S2 - Gastrointestinal General gastrointestinal: normal bowel sounds, soft - Integumentary Integumentary: decreased turgor - Neurologic Neurologic: CNII-XII intact - Musculoskeletal Musculoskeletal: gait normal, generalized weakness, strength equal bilaterally - Labs CBC & Chem 7: 05/19/20 03:47 05/19/20 03:47 Labs: Abnormal Lab Results - Last 24 Hours (Table) 05/19/20 05/19/20 05/19/20 Range/Units 03:47 03:47 03:47 Plt Count 104 L (150-450) k/uL Lymphocytes # 0.1 L (1.0-4.8) k/uL Fibrinogen 548 H (200-500) mg/dL D-Dimer 6.17 H (<0.60) mg/L FEU Chloride 111 H (98-107) mmol/L BUN 38 H (9-20) mg/dL Creatinine 1.26 H (0.66-1.25) mg/dL Glucose 147 H (74-99) mg/dL POC Glucose (mg/dL) (75-99) mg/dL Calcium 8.0 L (8.4-10.2) mg/dL Ferritin 754.4 H (22.0-322.0) ng/mL Creatine Kinase <20 L (55-170) U/L C-Reactive Protein 147.0 H (<10.0) mg/L Total Protein 4.9 L (6.3-8.2) g/dL Albumin 2.4 L (3.5-5.0) g/dL 05/19/20 Range/Units 12:37 Plt Count (150-450) k/uL Lymphocytes # (1.0-4.8) k/uL Fibrinogen (200-500) mg/dL D-Dimer (<0.60) mg/L FEU Chloride (98-107) mmol/L BUN (9-20) mg/dL Creatinine (0.66-1.25) mg/dL Glucose (74-99) mg/dL POC Glucose (mg/dL) 227 H (75-99) mg/dL Calcium (8.4-10.2) mg/dL Ferritin (22.0-322.0) ng/mL Creatine Kinase (55-170) U/L C-Reactive Protein (<10.0) mg/L Total Protein (6.3-8.2) g/dL Albumin (3.5-5.0) g/dL Assessment and Plan Assessment: Acute hypoxic history failure [place] in 19 pneumonia bilateral with cytokine jimi Acute kidney injury likely related to intravascular depletion and dehydration/acute tubular necrosis however renal functions have been stable Hypertension hypertensive cardiovascular disease Hypothyroidism History of oral cancer Plan: If further desaturation noted patient may need a BiPAP machine, however patient has been fairly stable if remains stable can be moved to telemetry bed Check inflammatory parameters as needed Deep breathing sense incentive spirometry Prone positioning IV Decadron IV Remdesivir for 5 days patient finished Status post convalescent plasma Will keep the fluid balance even or negative side Monitor renal functions closely Anticoagulation with Lovenox Check inflammatory parameters Zinc vitamin C and vitamin D supplements Further recommendations pending plan of care as per clinical response of patient Time with Patient: Greater than 30
--- NOTE | 2020-05-19 15:56 | P.PN ---
Subjective Progress Note Date: 05/19/20 This is a pleasant 84-year-old male who lives [facility]. He is brought over the EMS for anorexia and low-grade fever along with weakness. He is somewhat confused when he is in the emergency room as he is today. Initial evaluation showed some mild hypoxia with O2 saturation 90%. Blood pressure remained stable. He is been afebrile. He was found to be in mild renal failure with a BUN of 59 creatinine 2.3, urine showed +1 ketones, and he was positive for warner virus the emergency room. This a.m., the patient is somewhat confused. Answers my questions. He has known dementia and hypothyroidism. Chest x-ray showed Covid pneumonia type picture. CT brain showed no acute intracranial hemorrhage but diffuse cerebral atrophy and mild chronic small vessel ischemic change. The patient denies any chest pains or pressures or shortness of breath this time. Repeat a.m. labs are pending. His next of kin, friend is also my patient, and was also admitted with Covid 19 pneumonia yesterday. 05/12/2020 continues on Covid regimen including Remdesivir. Renal function improving. Sitter at bedside. Maintaining O2 sats in the 90s on 2 L nasal cannula. Afebrile. 05/13/2020 continues on Remdesivir, Decadron, vitamin C, vitamin D, zinc. Maintaining O2 sats in the low 90s on 2 L nasal cannula. Follow-up troponin mildly elevated at 0.048. Bradycardic with heart rates in the high 40s to 50s, asymptomatic. EKG ordered. No chest pain. A.m. beta demetria held. Afebrile, normal WBC. 05/14/2020 maintained on Covid regimen, maintaining O2 sats in the 90s on 2 L nasal cannula. Afebrile. Labs pending. Heart rate in the 50s. Denies lightheadedness dizziness or focal deficits. Denies chest pain, palpitations. Complains of exertional shortness of breath. 05/15/2020 appetite fluctuates. Maintaining O2 sats in the 90s on 2 L nasal cannula. Asymptomatic bradycardia, hypertensive. Afebrile, normal WBC. 05/16/2020 significant decline in respiratory status. Early a.m. patient's oxygen requirements worsened, requiring 6 L nasal cannula O2 to maintain O2 sats in the 90s. Shortly thereafter rapidly declined to nonrebreather plus high flow nasal cannula. Chest x-ray stat ordered. Afebrile, labs pending. Denies chest pain, palpitations. 05/19/2020 chest x-ray reporting diffuse bilateral infiltrates consistent with pneumonia. Maintaining O2 sats in the 90s on 15 L high flow nasal cannula. Telemetry sinus bradycardia/ sinus rhythm. Renal function worsening, BUN 38, creatinine 1.26. Afebrile. Objective - Vital Signs Vital signs: Vital Signs Temp 97.8 F 05/19/20 12:00 Pulse 88 05/19/20 14:00 Resp 25 H 05/19/20 14:00 BP 103/74 05/19/20 14:00 Pulse Ox 87 L 05/19/20 14:00 Intake & Output 05/18/20 05/19/20 05/19/20 18:59 06:59 18:59 Intake Total 1336 900 930 Output Total 515 455 390 Balance 821 445 540 Weight 79.5 kg 79.5 kg Intake: IV 825 900 450 Sodium Chloride 0.9% 1, 825 900 450 000 ml @ 75 mls/hr IV . [id number] [facility] Rx#:[id number] Intake, IV Titration 75 Amount Sodium Chloride 0.9% 1, 75 000 ml @ 75 mls/hr IV . [id number] [facility] Rx#:[id number] Oral 436 480 Output: Urine 515 455 390 Other: Voiding Method Indwelling Catheter Indwelling Catheter Indwelling Catheter - Exam GENERAL: Sitting up in bed, wearing a high flow nasal cannula HEAD: Atraumatic, normocephalic. HEENT: Pupils equal round and reactive to light, conjunctiva are normal. NECK: Supple, no JVD. LUNGS: bilateral bases diminished HEART: Regular rate and rhythm without murmurs, rubs or gallops.S1S2 Normal ABDOMEN: Soft, nontender, normoactive bowel sounds. No guarding. EXTREMITIES: Normal range of motion, no pitting or edema. No clubbing or cyanosis. NEUROLOGICAL: Cranial nerves II through XII grossly intact. Alert and oriented 2. SKIN: Warm, Dry, no rashes noted. - Labs CBC & Chem 7: 05/19/20 03:47 05/19/20 03:47 Labs: Abnormal Lab Results - Last 24 Hours (Table) 05/19/20 05/19/20 05/19/20 Range/Units 03:47 03:47 03:47 Plt Count 104 L (150-450) k/uL Lymphocytes # 0.1 L (1.0-4.8) k/uL Fibrinogen 548 H (200-500) mg/dL D-Dimer 6.17 H (<0.60) mg/L FEU Chloride 111 H (98-107) mmol/L BUN 38 H (9-20) mg/dL Creatinine 1.26 H (0.66-1.25) mg/dL Glucose 147 H (74-99) mg/dL POC Glucose (mg/dL) (75-99) mg/dL Calcium 8.0 L (8.4-10.2) mg/dL Ferritin 754.4 H (22.0-322.0) ng/mL Creatine Kinase <20 L (55-170) U/L C-Reactive Protein 147.0 H (<10.0) mg/L Total Protein 4.9 L (6.3-8.2) g/dL Albumin 2.4 L (3.5-5.0) g/dL 05/19/20 Range/Units 12:37 Plt Count (150-450) k/uL Lymphocytes # (1.0-4.8) k/uL Fibrinogen (200-500) mg/dL D-Dimer (<0.60) mg/L FEU Chloride (98-107) mmol/L BUN (9-20) mg/dL Creatinine (0.66-1.25) mg/dL Glucose (74-99) mg/dL POC Glucose (mg/dL) 227 H (75-99) mg/dL Calcium (8.4-10.2) mg/dL Ferritin (22.0-322.0) ng/mL Creatine Kinase (55-170) U/L C-Reactive Protein (<10.0) mg/L Total Protein (6.3-8.2) g/dL Albumin (3.5-5.0) g/dL Assessment and Plan Assessment: Acute bilateral Colvid 19 pneumonia Acute hypoxic respiratory failure secondary to the above acute renal failure, multifactorial, ATN, secondary to the above, dehydration Dehydration, Hypertension Hypothyroidism Unspecified dementia with behavioral disturbance History of oral cancer Sinus bradycardia, asymptomatic Plan: Continue on current medication regime ,monitoring and symptomatic treatment. Maintain covid regimen, anticoagulation, proning position. Follow closely with pulmonary. Close monitoring of renal function with repeat labs ordered for a.m. Boots ordered.Prognosis guarded given multiple complex medical issues The impression and plan of care has been dictated as directed. : I performed a history and examination of this patient, discussed the same with the dictator. I agree with the dictator's note ,documented as a scribe. Any additional findings or plans will be noted.
[2020-05-20 05:02] LABS: Basophils # (A) 0.1 k/uL (0-0.2); Basophils % (A) 1 %; Eosinophils % (A) 0 %; HCT 48.3 % (39.0-53.0); HGB 15.1 gm/dL (13.0-17.5); Hypochromasia Moderate; Lymphocytes # (A) 0.2 k/uL (1.0-4.8); Lymphocytes % (A) 2 %; MCH 28.2 pg (25.0-35.0); MCHC 31.2 g/dL (31.0-37.0); MCV 90.5 fL (80.0-100.0); Mean Platelet Volume 9.4; Monocytes # (A) 0.7 k/uL (0-1.0); Monocytes % (A) 9 %; Neutrophils # (A) 7.1 k/uL (1.3-7.7); Neutrophils % (A) 87 %; RBC 5.34 m/uL (4.30-5.90); RDW 14.9 % (11.5-15.5); WBC 8.2 k/uL (3.8-10.6)
[2020-05-20 05:08] LABS: Platelet Count 95 k/uL (150-450)
[2020-05-20 05:12] LABS: Albumin 2.6 g/dL (3.5-5.0); C Reactive Protein 63.6 mg/L (<10.0); Calcium 8.2 mg/dL (8.4-10.2); Total Protein 5.4 g/dL (6.3-8.2)
[2020-05-20 05:13] LABS: Potassium 5.1 mmol/L (3.5-5.1)
[2020-05-20] MEDS: SODIUM CHLORIDE 0.9% 1,000 ML IV SCH ×2 (06:03→17:43)
[2020-05-20] MEDS: LEVOTHYROXINE 50 MCG TAB PO SCH (06:03)
[2020-05-20] MEDS: dexAMETHasone 2 MG TAB PO SCH (09:11)
[2020-05-20] MEDS: amLODIPine 5 MG TAB PO SCH (09:11)
[2020-05-20] MEDS: ASCORBIC ACID 500 MG TAB PO SCH (09:11)
[2020-05-20] MEDS: CYANOCOBALAMIN 500 MCG TAB PO SCH (09:11)
[2020-05-20] MEDS: ZINC SULFATE 220 MG CAP PO SCH (09:12)
[2020-05-20] MEDS: METOPROLOL TARTRATE 12.5 MG TAB PO SCH ×2 (09:12→20:47)
[2020-05-20] MEDS: MEMANTINE 10 MG TAB PO SCH ×2 (09:12→20:47)
[2020-05-20] MEDS: ENOXAPARIN 40 MG/0.4 ML SYRINGE SQ SCH (09:12)
[2020-05-20] MEDS: LORATADINE 10 MG TAB PO SCH (09:12)
[2020-05-20] MEDS: PANTOPRAZOLE 40 MG TABLET PO SCH (09:12)
[2020-05-20] MEDS: DONEPEZIL 10 MG TAB PO SCH (09:14)
[2020-05-20] MEDS: CHOLECALCIFEROL 400 UNIT TAB PO SCH (09:15)
--- NOTE | 2020-05-20 09:20 | XR ---
EXAMINATION TYPE: XR chest 1V portable DATE OF EXAM: 05/20/2020 COMPARISON: Prior chest x-ray 05/19/2020 HISTORY: Shortness of breath TECHNIQUE: Single frontal view of the chest is obtained. FINDINGS: Findings are similar to prior exam. There is elevation of right hemidiaphragm, bilateral p atchy airspace disease. Cardiac mediastinal silhouette is unchanged. IMPRESSION: Findings are similar to prior exam, correlate for pneumonia.
[2020-05-20 09:43] LABS: Ferritin 697.4 ng/mL (22.0-322.0)
--- NOTE | 2020-05-20 11:18 | P.PN ---
Subjective Progress Note Date: 05/20/20 Principal diagnosis: Acute hypoxic history failure [place] in 19 pneumonia bilateral Acute kidney injury likely related to intravascular depletion and dehydration Hypertension hypertensive cardiovascular disease Hypothyroidism History of oral cancer 05/20/2020, patient seen eval examined during rounds labs reviewed medications reviewed care plan discussed, patient remains on supplemental oxygen, currently on 15 L high flow, oxygen saturation ranging from 85-92%, hemodynamic stable remains afebrile 05/19/2020, patient seen and evaluated examined labs reviewed medications reviewed, oxygenation somewhat improved today, patient on 100% oxygen saturation 88-89%, diffuse bilateral infiltrate noted on today's x-ray consistent with pneumonia 05/18/2020, patient seen eval examined during rounds labs reviewed medications reviewed remains on 100% nonrebreather mask, oxygen saturation is a 89-90%, pleasantly confused, labs reviewed, medications reviewed and encourage deep b reathing exercise incentive spirometry prone positioning if possible 05/17/2020, patient seen eval examined during the rounds labs reviewed medications reviewed patient remains on 100% oxygen on 15 clear high flow, oxygen saturation is stable into mid 90s, and request has been initiated for convalescent plasma, patient is status post IV REMdesivir, has been on Decadron, oxygen saturation stable 97%, extensive pneumonia in the right side some patchy infiltrate on the left base 05/16/2020, patient seen eval examined during the rounds labs reviewed medications reviewed care plan discussed, denies any chest pain, however patient's respiratory status got worse early in the morning FiO2 increase from 2 L up to 15 L high flow oxygen along with nonrebreather mask with that saturation 90-94%, chest x-ray stat portable performed reviewed, showing worsening of airspace disease more so on the right side compared to left side, 05/15/2020, patient seen eval examined during rounds labs reviewed medications reviewed appetite has been poor, oxygenation however been stable for 2 L, today is the last dose of IV Remdesivir, oxygen saturation remains stable asymptomatic bradycardia however has been noted, 96% on 2 L, 05/14/2020, patient seen eval examined during the rounds labs reviewed medicatio ns reviewed, remains on therapy, on 2 L oxygen saturation have been stable, but does feel short of breath saturation is 95%, 05/13/2020, patient seen eval examined during rounds labs reviewed medications reviewed care plan discussed, patient is still complaining or shortness of breath she he is on 2 L oxygen oxygen saturation have been stable, remains afebrile with stable hemodynamics, 91% to 95% on current oxygen, patient remain on Hexadrol along with IV REMdesivir 05/12/2020, patient seen eval examined during the rounds labs reviewed medications reviewed shortness of breath still there on 2 L oxygen, confusion stable somewhat agitated but mental status have improved compared, bedside sit ter is present, BUN/creatinine improved to 48 and 1.5, This is a 84-year-old male [facility], came into the hospital with altered mental status, for the last 3 days patient has not been eating very weak fatigued and tired, EMS was notified brought into the hospital for further evaluation, his saturation on room air was 90%, afebrile no arrival, patient has significant history of oral cancer, 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 dementia and Alzheimer's disease, his BUN/creatinine is 59 and 2.3, warner virus PCR positive, CT head chronic old cerebral atrophic and small vascular changes were noted, chest x-ray showed bilateral multifocal patchy infiltrate right side more than the left side consistent with covid 19 pneumonia Objective - Vital Signs Vital signs: Vital Signs Temp 98.3 F 05/20/20 08:00 Pulse 74 05/20/20 08:00 Resp 22 05/20/20 08:00 BP 159/71 05/20/20 08:00 Pulse Ox 85 L 05/20/20 08:00 Intake & Output 05/19/20 05/20/20 05/20/20 18:59 06:59 18:59 Intake Total 1380 750 300 Output Total 530 665 350 Balance 850 85 -50 Weight 79.5 kg 80.3 kg Intake: IV 900 750 Sodium Chloride 0.9% 1, 900 750 000 ml @ 75 mls/hr IV . [id number] [facility] Rx#:[id number] Oral 480 Lipid 300 Sodium Chloride 0.9% 1, 300 000 ml @ 75 mls/hr IV . [id number] [facility] Rx#:[id number] Output: Urine 530 665 350 Other: Voiding Method Indwelling Catheter Indwelling Catheter # Bowel Movements 0 - Exam - Constitutional General appearance: average body habitus, cooperative, disheveled, mild distress - EENT Eyes: PERRLA Ears: bilateral: normal - Neck Carotids: bilateral: upstroke normal Thyroid: bilateral: normal size - Respiratory Respiratory: bilateral: diminished - Cardiovascular Rhythm: regular Heart sounds: normal: S1, S2 - Gastrointestinal General gastrointestinal: normal bowel sounds, soft - Integumentary Integumentary: decreased turgor - Neurologic Neurologic: CNII-XII intact - Musculoskeletal Musculoskeletal: gait normal, generalized weakness, strength equal bilaterally - Labs CBC & Chem 7: 05/20/20 03:54 05/20/20 03:54 Labs: Abnormal Lab Results - Last 24 Hours (Table) 05/19/20 05/20/20 05/20/20 Range/Units 12:37 03:54 03:54 Plt Count 95 L (150-450) k/uL Lymphocytes # 0.2 L (1.0-4.8) k/uL Sodium 136 L (137-145) mmol/L Chloride 111 H (98-107) mmol/L Carbon Dioxide 19 L (22-30) mmol/L BUN 45 H (9-20) mg/dL Glucose 228 H (74-99) mg/dL POC Glucose (mg/dL) 227 H (75-99) mg/dL Calcium 8.2 L (8.4-10.2) mg/dL Ferritin 697.4 H (22.0-322.0) ng/mL C-Reactive Protein 63.6 H (<10.0) mg/L Total Protein 5.4 L (6.3-8.2) g/dL Albumin 2.6 L (3.5-5.0) g/dL Assessment and Plan Assessment: Acute hypoxic history failure Covid19 pneumonia bilateral with cytokine jimi Acute kidney injury likely related to intravascular depletion and dehydration/acute tubular necrosis however renal functions have been stable Hypertension hypertensive cardiovascular disease Hypothyroidism History of oral cancer Plan: If further desaturation noted patient may need a BiPAP machine, however patient has been fairly stable if remains stable can be moved to telemetry bed Check inflammatory parameters as needed Deep breathing sense incentive spirometry Prone positioning IV Decadron IV Remdesivir for 5 days patient finished Status post convalescent plasma Will keep the fluid balance even or negative side Monitor renal functions closely Anticoagulation with Lovenox Check inflammatory parameters Zinc vitamin C and vitamin D supplements Further recommendations pending plan of care as per clinical response of patient Time with Patient: Greater than 30
--- NOTE | 2020-05-20 11:19 | P.PN ---
Subjective Progress Note Date: 05/20/20 This is a pleasant 84-year-old male who lives [facility] [place]. He is brought over the EMS for anorexia and low-grade fever along with weakness. He is somewhat confused when he is in the emergency room as he is today. Initial evaluation showed some mild hypoxia with O2 saturation 90%. Blood pressure remained stable. He is been afebrile. He was found to be in mild renal failure with a BUN of 59 creatinine 2.3, urine showed +1 ketones, and he was positive for warner virus the emergency room. This a.m., the patient is somewhat confused. Answers my questions. He has known dementia and hypothyroidism. Chest x-ray showed Covid pneumonia type picture. CT brain showed no acute intracranial hemorrhage but diffuse cerebral atrophy and mild chronic small vessel ischemic change. The patient denies any chest pains or pressures or shortness of breath this time. Repeat a.m. labs are pending. His next of kin, friend is also my patient, and was also admitted with Covid 19 pneumonia yesterday. 05/12/2020 continues on Covid regimen including Remdesivir. Renal function improving. Sitter at bedside. Maintaining O2 sats in the 90s on 2 L nasal cannula. Afebrile. 05/13/2020 continues on Remdesivir, Decadron, vitamin C, vitamin D, zinc. Maintaining O2 sats in the low 90s on 2 L nasal cannula. Follow-up troponin mildly elevated at 0.048. Bradycardic with heart rates in the high 40s to 50s, asymptomatic. EKG ordered. No chest pain. A.m. beta demetria held. Afebrile, normal WBC. 05/14/2020 maintained on Covid regimen, maintaining O2 sats in the 90s on 2 L nasal cannula. Afebrile. Labs pending. Heart rate in the 50s. Denies lightheadedness dizziness or focal deficits. Denies chest pain, palpitations. Complains of exertional shortness of breath. 05/15/2020 appetite fluctuates. Maintaining O2 sats in the 90s on 2 L nasal cannula. Asymptomatic bradycardia, hypertensive. Afebrile, normal WBC. 05/16/2020 significant decline in respiratory status. Early a.m. patient's oxygen requirements worsened, requiring 6 L nasal cannula O2 to maintain O2 sats in the 90s. Shortly thereafter rapidly declined to nonrebreather plus high flow nasal cannula. Chest x-ray stat ordered. Afebrile, labs pending. Denies chest pain, palpitations. 05/19/2020 chest x-ray reporting diffuse bilateral infiltrates consistent with pneumonia. Maintaining O2 sats in the 90s on 15 L high flow nasal cannula. Telemetry sinus bradycardia/ sinus rhythm. Renal function worsening, BUN 38, creatinine 1.26. Afebrile. 05/20/2020 continues on 15 L high flow nasal cannula, maintaining O2 sats in the 90s. BUN up to 45, Creatinine down to 1.09. Bicarb 19. Chest x-ray similar to prior. Telemetry- Sinus bradycardia. Mild hypertension. Afebrile. Objective - Vital Signs Vital signs: Vital Signs Temp 98.9 F 05/20/20 04:00 Pulse 48 L 05/20/20 06:00 Resp 18 05/20/20 06:00 BP 153/66 05/20/20 06:00 Pulse Ox 92 L 05/20/20 06:00 Intake & Output 05/19/20 05/20/20 05/20/20 18:59 06:59 18:59 Intake Total 1380 750 Output Total 530 665 Balance 850 85 Weight 79.5 kg 80.3 kg Intake: IV 900 750 Sodium Chloride 0.9% 1, 900 750 000 ml @ 75 mls/hr IV . [id number] [facility] Rx#:[id number] Oral 480 Output: Urine 530 665 Other: Voiding Method Indwelling Catheter Indwelling Catheter # Bowel Movements 0 - Exam GENERAL: Sitting up in bed, wearing a high flow nasal cannula, respiratory effort increased HEAD: Atraumatic, normocephalic. HEENT: Pupils equal round and reactive to light, conjunctiva are normal. NECK: Supple, no JVD. LUNGS: bilateral bases diminished HEART: Regular rate and rhythm without murmurs, rubs or gallops. S1,S2 Normal. ABDOMEN: Soft, nontender, normoactive bowel sounds. No guarding. EXTREMITIES: Normal range of motion, no pitting or edema. No clubbing or cyanosis. NEUROLOGICAL: Cranial nerves II through XII grossly intact. Alert and oriented 2. SKIN: Warm, Dry, no rashes noted. - Labs CBC & Chem 7: 05/20/20 03:54 05/20/20 03:54 Labs: Abnormal Lab Results - Last 24 Hours (Table) 05/19/20 05/20/20 05/20/20 Range/Units 12:37 03:54 03:54 Plt Count 95 L (150-450) k/uL Lymphocytes # 0.2 L (1.0-4.8) k/uL Sodium 136 L (137-145) mmol/L Chloride 111 H (98-107) mmol/L Carbon Dioxide 19 L (22-30) mmol/L BUN 45 H (9-20) mg/dL Glucose 228 H (74-99) mg/dL POC Glucose (mg/dL) 227 H (75-99) mg/dL Calcium 8.2 L (8.4-10.2) mg/dL Ferritin 697.4 H (22.0-322.0) ng/mL C-Reactive Protein 63.6 H (<10.0) mg/L Total Protein 5.4 L (6.3-8.2) g/dL Albumin 2.6 L (3.5-5.0) g/dL Assessment and Plan Assessment: Acute bilateral [place] 19 pneumonia Acute hypoxic respiratory failure secondary to the above acute renal failure, multifactorial, ATN, secondary to the above, dehydration Dehydration, Hypertension Hypothyroidism Unspecified dementia with behavioral disturbance History of oral cancer Sinus bradycardia, asymptomatic Plan: Continue on current medication regime ,monitoring and symptomatic treatment. Continue on covid regimen, anticoagulation. Close monitoring of renal function with repeat labs ordered for a.m.Up in chair with assist./PT. follow closely with pulmonary .Prognosis guarded given multiple complex medical issues. The impression and plan of care has been dictated as directed. : I performed a history and examination of this patient, discussed the same with the dictator. I agree with the dictator's note ,documented as a scribe. Any additional findings or plans will be noted.
[2020-05-20 16:38] LABS: LD Isoenzymes 1 21 % (19-38); LD Isoenzymes 2 33 % (30-43); LD Isoenzymes 3 20 % (16-26); LD Isoenzymes 4 10 % (3-12); LD Isoenzymes 5 16 % (3-14); Lactacte Dehydrogenase(LD) ISO 324 U/L (120-250)
[2020-05-20] MEDS: MELATONIN 5 MG TABLET PO SCH (20:47)
[2020-05-21] MEDS: SODIUM CHLORIDE 0.9% 1,000 ML IV SCH ×2 (04:59→16:10)
[2020-05-21] MEDS: LEVOTHYROXINE 50 MCG TAB PO SCH (06:20)
[2020-05-21] MEDS: METOPROLOL TARTRATE 12.5 MG TAB PO SCH ×2 (09:23→20:50)
[2020-05-21] MEDS: dexAMETHasone 2 MG TAB PO SCH (09:23)
[2020-05-21] MEDS: amLODIPine 5 MG TAB PO SCH (09:24)
[2020-05-21] MEDS: ZINC SULFATE 220 MG CAP PO SCH (09:24)
[2020-05-21] MEDS: CYANOCOBALAMIN 500 MCG TAB PO SCH (09:24)
[2020-05-21] MEDS: PANTOPRAZOLE 40 MG TABLET PO SCH (09:24)
[2020-05-21] MEDS: LORATADINE 10 MG TAB PO SCH (09:24)
[2020-05-21] MEDS: ASCORBIC ACID 500 MG TAB PO SCH (09:24)
[2020-05-21] MEDS: DONEPEZIL 10 MG TAB PO SCH (09:24)
[2020-05-21] MEDS: ENOXAPARIN 40 MG/0.4 ML SYRINGE SQ SCH (09:24)
[2020-05-21] MEDS: MEMANTINE 10 MG TAB PO SCH ×2 (09:24→20:50)
[2020-05-21] MEDS: CHOLECALCIFEROL 400 UNIT TAB PO SCH (12:26)
[2020-05-21] MEDS ORDERED: amLODIPine 5 MG TAB PO STA (15:14)
--- NOTE | 2020-05-21 15:22 | P.PN ---
Subjective Progress Note Date: 05/21/20 This is a pleasant 84-year-old male who [facility]. He is brought over the EMS for anorexia and low-grade fever along with weakness. He is somewhat confused when he is in the emergency room as he is today. Initial evaluation showed some mild hypoxia with O2 saturation 90%. Blood pressure remained stable. He is been afebrile. He was found to be in mild renal failure with a BUN of 59 creatinine 2.3, urine showed +1 ketones, and he was positive for warner virus the emergency room. This a.m., the patient is somewhat confused. Answers my questions. He has known dementia and hypothyroidism. Chest x-ray showed Covid pneumonia type picture. CT brain showed no acute intracranial hemorrhage but diffuse cerebral atrophy and mild chronic small vessel ischemic change. The patient denies any chest pains or pressures or shortness of breath this time. Repeat a.m. labs are pending. His next of kin, friend is also my patient, and was also admitted with Covid 19 pneumonia yesterday. 05/12/2020 continues on Covid regimen including Remdesivir. Renal function improving. Sitter at bedside. Maintaining O2 sats in the 90s on 2 L nasal cannula. Afebrile. 05/13/2020 continues on Remdesivir, Decadron, vitamin C, vitamin D, zinc. Maintaining O2 sats in the low 90s on 2 L nasal cannula. Follow-up troponin mildly elevated at 0.048. Bradycardic with heart rates in the high 40s to 50s, asymptomatic. EKG ordered. No chest pain. A.m. beta demetria held. Afebrile, normal WBC. 05/14/2020 maintained on Covid regimen, maintaining O2 sats in the 90s on 2 L nasal cannula. Afebrile. Labs pending. Heart rate in the 50s. Denies lightheadedness dizziness or focal deficits. Denies chest pain, palpitations. Complains of exertional shortness of breath. 05/15/2020 appetite fluctuates. Maintaining O2 sats in the 90s on 2 L nasal cannula. Asymptomatic bradycardia, hypertensive. Afebrile, normal WBC. 05/16/2020 significant decline in respiratory status. Early a.m. patient's oxygen requirements worsened, requiring 6 L nasal cannula O2 to maintain O2 sats in the 90s. Shortly thereafter rapidly declined to nonrebreather plus high flow nasal cannula. Chest x-ray stat ordered. Afebrile, labs pending. Denies chest pain, palpitations. 05/19/2020 chest x-ray reporting diffuse bilateral infiltrates consistent with pneumonia. Maintaining O2 sats in the 90s on 15 L high flow nasal cannula. Telemetry sinus bradycardia/ sinus rhythm. Renal function worsening, BUN 38, creatinine 1.26. Afebrile. 05/20/2020 continues on 15 L high flow nasal cannula, maintaining O2 sats in the 90s. BUN up to 45, Creatinine down to 1.09. Bicarb 19. Chest x-ray similar to prior. Telemetry- Sinus bradycardia. Mild hypertension. Afebrile. 05/21/20 transferred out of ICU currently on MedSurg unit. Continues on 15 L high flow. Weakness improving. Afebrile, normal WBC. Labs pending. Hypertensive. Objective - Vital Signs Vital signs: Vital Signs Temp 97.4 F L 05/21/20 10:00 Pulse 76 05/21/20 10:00 Resp 19 05/21/20 10:53 BP 164/66 05/21/20 10:00 Pulse Ox 97 05/21/20 05:46 Intake & Output 05/20/20 05/21/20 05/21/20 18:59 06:59 18:59 Intake Total 1100 Output Total 750 400 Balance 350 -400 Intake: IV 600 Sodium Chloride 0.9% 1, 600 000 ml @ 75 mls/hr IV . [id number] [facility] Rx#:[id number] Oral 500 Output: Urine 750 400 Other: Voiding Method Indwelling Catheter Indwelling Catheter Indwelling Catheter # Voids 1 # Bowel Movements 0 - Exam GENERAL: Sitting up in bed, wearing a high flow nasal cannula HEAD: Atraumatic, normocephalic. HEENT: Pupils equal round and reactive to light, conjunctiva are normal. NECK: Supple, no JVD. LUNGS: bilateral bases diminished, decreased scattered rhonchi, fine bibasilar crackles HEART: Regular rate and rhythm without murmurs, rubs or gallops. S1,S2 Normal. ABDOMEN: Soft, nontender, normoactive bowel sounds. No guarding. EXTREMITIES: Normal range of motion, no pitting or edema. No clubbing or cyanosis. NEUROLOGICAL: Cranial nerves II through XII grossly intact. Alert and oriented 2. SKIN: Warm, Dry, no rashes noted. - Labs CBC & Chem 7: 05/20/20 03:54 05/20/20 03:54 Labs: Abnormal Lab Results - Last 24 Hours (Table) 05/17/20 Range/Units 05:00 LD Isoenzymes 324 H (120-250) U/L LD 5 16 H (3-14) % Assessment and Plan Assessment: Acute bilateral [place] 19 pneumonia Acute hypoxic respiratory failure secondary to the above acute renal failure, multifactorial, ATN, secondary to the above, dehydration Dehydration, Hypertension Hypothyroidism Unspecified dementia with behavioral disturbance History of oral cancer Sinus bradycardia, asymptomatic Plan: Continue on current medication regime ,monitoring and symptomatic treatment. Covid regimen, anticoagulation. Maintain close monitoring of renal function. Labs pending.Daily PT. Prognosis guarded given multiple complex me dical issues. The impression and plan of care has been dictated as directed. : I performed a history and examination of this patient, discussed the same with the dictator. I agree with the dictator's note ,documented as a scribe. Any additional findings or plans will be noted.
--- NOTE | 2020-05-21 15:48 | P.PN ---
Subjective Progress Note Date: 05/21/20 Principal diagnosis: Acute hypoxic history failure [place] in 19 pneumonia bilateral Acute kidney injury likely related to intravascular depletion and dehydration Hypertension hypertensive cardiovascular disease Hypothyroidism History of oral cancer 05/31/2020, patient seen eval examined during the rounds labs reviewed medications reviewed care plan discussed, currently on 15 L high flow oxygen, moved out of the ICU on MedSurg unit, labs not done today, chest x-ray from yes terday overall stable finding 05/20/2020, patient seen eval examined during rounds labs reviewed medications reviewed care plan discussed, patient remains on supplemental oxygen, currently on 15 L high flow, oxygen saturation ranging from 85-92%, hemodynamic stable remains afebrile 05/19/2020, patient seen and evaluated examined labs reviewed medications reviewed, oxygenation somewhat improved today, patient on 100% oxygen saturation 88-89%, diffuse bilateral infiltrate noted on today's x-ray consistent with pneumonia 05/18/2020, patient seen eval examined during rounds labs reviewed medications reviewed remains on 100% nonrebreather mask, oxygen saturation is a 89-90%, pleasantly confused, labs reviewed, medications reviewed and encourage deep breathing exercise incentive spirometry prone positioning if possible 05/17/2020, patient seen eval examined during the rounds labs reviewed medications reviewed patient remains on 100% oxygen on 15 clear high flow, oxygen saturation is stable into mid 90s, and request has been initiated for convalescent plasma, patient is status post IV REMdesivir, has been on Decadron, oxygen saturation stable 97%, extensive pneumonia in the right side some patchy infiltrate on the left base 05/16/2020, patient seen eval examined during the rounds labs reviewed medications reviewed care plan discussed, denies any chest pain, however patient's respiratory status got worse early in the morning FiO2 increase from 2 L up to 15 L high flow oxygen along with nonrebreather mask with that saturation 90-94%, chest x-ray stat portable performed reviewed, showing worsening of airspace disease more so on the right side compared to left side, 05/15/2020, patient seen eval examined during rounds labs reviewed medications reviewed appetite has been poor, oxygenation however been stable for 2 L, today is the last dose of IV Remdesivir, oxygen saturation remains stable asymptomatic bradycardia however has been noted, 96% on 2 L, 05/14/2020, patient seen eval examined during the rounds labs reviewed medications reviewed, remains on therapy, on 2 L oxygen saturation have been stable, but does feel short of breath saturation is 95%, 05/13/2020, patient seen eval examined during rounds labs reviewed medications reviewed care plan discussed, patient is still complaining or shortness of breath she he is on 2 L oxygen oxygen saturation have been stable, remains afebrile with stable hemodynamics, 91% to 95% on current oxygen, patient remain on Hexadrol along with IV REMdesivir 05/12/2020, patient seen eval examined during the rounds labs reviewed medications reviewed shortness of breath still there on 2 L oxygen, confusion stable somewhat agitated but mental status have improved compared, bedside sitter is present, BUN/creatinine improved to 48 and 1.5, This is a 84-year-old male resident of a custodial, came into the hospital with altered mental status, for the last 3 days patient has not been eating very weak fatigued and tired, EMS was notified brought into the hospital for further evaluation, his saturation on room air was 90%, afebrile no arrival, patient has significant history of oral cancer, 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 dementia and Alzheimer's disease, his BUN/creatinine is 59 and 2.3, warner virus PCR positive, CT head chronic old cerebral atrophic and small vascular changes were noted, chest x-ray showed bilateral multifocal patchy infiltrate right side more than the left side consistent with covid 19 pneumonia Objective - Vital Signs Vital signs: Vital Signs Temp 98.4 F 05/21/20 14:15 Pulse 85 05/21/20 14:15 Resp 19 05/21/20 14:15 BP 179/74 05/21/20 14:15 Pulse Ox 91 L 05/21/20 14:15 Intake & Output 05/20/20 05/21/20 05/21/20 18:59 06:59 18:59 Intake Total 1100 Output Total 750 400 Balance 350 -400 Intake: IV 600 Sodium Chloride 0.9% 1, 600 000 ml @ 75 mls/hr IV . [id number] [facility] Rx#:[id number] Oral 500 Output: Urine 750 400 Other: Voiding Method Indwelling Catheter Indwelling Catheter Indwelling Catheter # Voids 1 # Bowel Movements 0 - Exam - Constitutional General appearance: average body habitus, cooperative, disheveled, mild distress - EENT Eyes: PERRLA Ears: bilateral: normal - Neck Carotids: bilateral: upstroke normal Thyroid: bilateral: normal size - Respiratory Respiratory: bilateral: diminished - Cardiovascular Rhythm: regular Heart sounds: normal: S1, S2 - Gastrointestinal General gastrointestinal: normal bowel sounds, soft - Integumentary Integumentary: decreased turgor - Neurologic Neurologic: CNII-XII intact - Musculoskeletal Musculoskeletal: gait normal, generalized weakness, strength equal bilaterally - Labs CBC & Chem 7: 05/20/20 03:54 05/20/20 03:54 Labs: Abnormal Lab Results - Last 24 Hours (Table) 05/17/20 Range/Units 05:00 LD Isoenzymes 324 H (120-250) U/L LD 5 16 H (3-14) % Assessment and Plan Assessment: Acute hypoxic history failure Covid19 pneumonia bilateral with cytokine jimi Acute kidney injury likely related to intravascular depletion and dehy dration/acute tubular necrosis however renal functions have been stable Hypertension hypertensive cardiovascular disease Hypothyroidism History of oral cancer Plan: patient has been fairly stable if remains stable monitor and observe closely on telemetry bed Check inflammatory parameters as needed Deep breathing sense incentive spirometry Prone positioning IV Decadron IV Remdesivir for 5 days patient finished Status post convalescent plasma Will keep the fluid balance even or negative side Monitor renal functions closely Anticoagulation with Lovenox Check inflammatory parameters Zinc vitamin C and vitamin D supplements Further recommendations pending plan of care as per clinical response of patient Time with Patient: Greater than 30
[2020-05-21 16:28] LABS: HCT 48.5 % (39.0-53.0); MCH 28.5 pg (25.0-35.0); MCV 86.4 fL (80.0-100.0); Mean Platelet Volume 9.4; Platelet Count 113 k/uL (150-450); RBC 5.62 m/uL (4.30-5.90); RDW 14.9 % (11.5-15.5); WBC 9.9 k/uL (3.8-10.6)
[2020-05-21] MEDS: MELATONIN 5 MG TABLET PO SCH (20:50)
[2020-05-22] MEDS: SODIUM CHLORIDE 0.9% 1,000 ML IV SCH (02:50)
[2020-05-22 04:24] LABS: African American GFR (CKD) 64.4 (60.0-200.0); Anion Gap 13.7 mmol/L (4.00-12.00); BUN/Creat Ratio 38.33 Ratio (12.00-20.00); Calcium 8.5 mg/dL (8.7-10.3); Carbon Dioxide 21.3 mmol/L (21.6-31.8); Non-African American GFR(CKD) 55.6 (60.0-200.0); Potassium 4.6 mmol/L (3.5-5.5)
[2020-05-22] MEDS: LEVOTHYROXINE 50 MCG TAB PO SCH (05:59)
[2020-05-22 06:43] LABS: Basophils # (A) 0.1 k/uL (0-0.2); Basophils % (A) 1 %; Eosinophils # (A) 0.1 k/uL (0-0.7); Eosinophils % (A) 1 %; HCT 44.8 % (39.0-53.0); HGB 13.7 gm/dL (13.0-17.5); Lymphocytes # (A) 0.4 k/uL (1.0-4.8); Lymphocytes % (A) 5 %; MCH 26.6 pg (25.0-35.0); MCHC 30.6 g/dL (31.0-37.0); MCV 87.1 fL (80.0-100.0); Mean Platelet Volume 10.2; Monocytes # (A) 0.6 k/uL (0-1.0); Monocytes % (A) 8 %; Neutrophils # (A) 6.7 k/uL (1.3-7.7); Neutrophils % (A) 85 %; RBC 5.15 m/uL (4.30-5.90); WBC 7.9 k/uL (3.8-10.6)
[2020-05-22 06:50] LABS: Platelet Count 99 k/uL (150-450)
[2020-05-22 10:11] LABS: African American GFR (CKD) 91.2 (60.0-200.0); Anion Gap 6.8 mmol/L (4.00-12.00); BUN/Creat Ratio 38.89 Ratio (12.00-20.00); Calcium 7.2 mg/dL (8.7-10.3); Carbon Dioxide 23.2 mmol/L (21.6-31.8); Non-African American GFR(CKD) 78.7 (60.0-200.0); Potassium 4.2 mmol/L (3.5-5.5)
[2020-05-22] MEDS: DONEPEZIL 10 MG TAB PO SCH ×2 (10:17→11:19)
[2020-05-22] MEDS: amLODIPine 10 MG TAB PO SCH (10:17)
[2020-05-22] MEDS: CYANOCOBALAMIN 500 MCG TAB PO SCH ×2 (10:17→11:34)
[2020-05-22] MEDS: ASCORBIC ACID 500 MG TAB PO SCH ×2 (10:17→11:34)
[2020-05-22] MEDS: METOPROLOL TARTRATE 12.5 MG TAB PO SCH ×2 (10:18→21:48)
[2020-05-22] MEDS: MEMANTINE 10 MG TAB PO SCH ×3 (10:18→21:49)
[2020-05-22] MEDS: ZINC SULFATE 220 MG CAP PO SCH (10:18)
[2020-05-22] MEDS: LORATADINE 10 MG TAB PO SCH (10:18)
[2020-05-22] MEDS: PANTOPRAZOLE 40 MG TABLET PO SCH ×2 (10:18→11:34)
--- NOTE | 2020-05-22 10:23 | XR ---
EXAMINATION TYPE: XR chest 1V portable DATE OF EXAM: 05/22/2020 COMPARISON: 05/20/2020 HISTORY: Shortness of breath TECHNIQUE: Single frontal view of the chest is obtained. FINDINGS: Elevated right hemidiaphragm with patchy bilateral infiltrates and small right pleural eff usion. Heart size normal. Underlying COPD or chronic interstitial lung disease suspected. No pneumoth orax. Hypertrophic and degenerative change of the spine. Arthropathy of the shoulders. IMPRESSION: Patchy bilateral infiltrates with small right pleural effusion.
[2020-05-22] MEDS: ENOXAPARIN 40 MG/0.4 ML SYRINGE SQ SCH (11:18)
--- NOTE | 2020-05-22 11:38 | P.PN ---
Subjective Progress Note Date: 05/22/20 Principal diagnosis: Acute hypoxic history failure [place] in 19 pneumonia bilateral Acute kidney injury likely related to intravascular depletion and dehydration Hypertension hypertensive cardiovascular disease Hypothyroidism History of oral cancer 05/22/2020, patient seen eval examined during the rounds labs reviewed medications reviewed care plan discussed, patient has intermittent significant desaturation this morning tried to prone him but however he could not understand due to severe dementia sats were better when he was sideways, running cause further desaturation, patient is currently supine on the 100% nonrebreather mask saturation is up to 90%, remains afebrile, discussed with the respiratory bedside before transfer to the ICU will attempt BiPAP in case if he desaturated on high flow oxygen will initiate setting of 05/20 with 100% oxygen 05/21/2020, patient seen eval examined during the rounds labs reviewed medications reviewed care plan discussed, currently on 15 L high flow oxygen, moved out of the ICU on MedSurg unit, labs not done today, chest x-ray from yesterday overall stable finding 05/20/2020, patient seen eval examined during rounds labs reviewed medications reviewed care plan discussed, patient remains on supplemental oxygen, currently on 15 L high flow, oxygen saturation ranging from 85-92%, hemodynamic stable remains afebrile 05/19/2020, patient seen and evaluated examined labs reviewed medications reviewed, oxygenation somewhat improved today, patient on 100% oxygen saturation 88-89%, diffuse bilateral infiltrate noted on today's x-ray consistent with pneumonia 05/18/2020, patient seen eval examined during rounds labs reviewed medications reviewed remains on 100% nonrebreather mask, oxygen saturation is a 89-90%, pleasantly confused, labs reviewed, medications reviewed and encourage deep breathing exercise incentive spirometry prone positioning if possible 05/17/2020, patient seen eval examined during the rounds labs reviewed medications reviewed patient remains on 100% oxygen on 15 clear high flow, oxygen saturation is stable into mid 90s, and request has been initiated for convalescent plasma, patient is status post IV REMdesivir, has been on Decadron, oxygen saturation stable 97%, extensive pneumonia in the right side some patchy infiltrate on the left base 05/16/2020, patient seen eval examined during the rounds labs reviewed medications reviewed care plan discussed, denies any chest pain, however debbie watts's respiratory status got worse early in the morning FiO2 increase from 2 L up to 15 L high flow oxygen along with nonrebreather mask with that saturation 90- 94%, chest x-ray stat portable performed reviewed, showing worsening of airspace disease more so on the right side compared to left side, 05/15/2020, patient seen eval examined during rounds labs reviewed medications reviewed appetite has been poor, oxygenation however been stable for 2 L, today is the last dose of IV Remdesivir, oxygen saturation remains stable asymptomatic bradycardia however has been noted, 96% on 2 L, 05/14/2020, patient seen eval examined during the rounds labs reviewed medications reviewed, remains on therapy, on 2 L oxygen saturation have been stable, but does feel short of breath saturation is 95%, 05/13/2020, patient seen eval examined during rounds labs reviewed medications reviewed care plan discussed, patient is still complaining or shortness of breath she he is on 2 L oxygen oxygen saturation have been stable, remains afebrile with stable hemodynamics, 91% to 95% on current oxygen, patient remain on Hexadrol along with IV REMdesivir 05/12/2020, patient seen eval examined during the rounds labs reviewed medications reviewed shortness of breath still there on 2 L oxygen, confusion stable somewhat agitated but mental status have improved compared, bedside sitter is present, BUN/creatinine improved to 48 and 1.5, This is a 84-year-old male resident of a [facility], came into the hospital with altered mental status, for the last 3 days patient has not been eating very weak fatigued and tired, EMS was notified brought into the hospital for further evaluation, his saturation on room air was 90%, afebrile no arrival, patient has significant history of oral cancer, 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 dementia and Alzheimer's disease, his BUN/creatinine is 59 and 2.3, warner virus PCR positive, CT head chronic old cerebral atrophic and small vascular changes were noted, chest x-ray showed bilateral multifocal patchy infiltrate right side more than the left side consistent with covid 19 pneumonia Objective - Vital Signs Vital signs: Vital Signs Temp 97.4 F L 05/22/20 09:55 Pulse 85 05/22/20 09:55 Resp 26 H 05/22/20 09:55 BP 176/77 05/22/20 09:55 Pulse Ox 86 L 05/22/20 09:55 Intake & Output 12/03/0205/22/20 05/22/20 18:59 06:59 18:59 Output Total 400 Balance -400 Output: Urine 400 Other: Voiding Method Indwelling Catheter Indwelling Catheter # Voids 1 # Bowel Movements 0 - Exam - Constitutional General appearance: average body habitus, cooperative, disheveled, mild distress - EENT Eyes: PERRLA Ears: bilateral: normal - Neck Carotids: bilateral: upstroke normal Thyroid: bilateral: normal size - Respiratory Respiratory: bilateral: diminished - Cardiovascular Rhythm: regular Heart sounds: normal: S1, S2 - Gastrointestinal General gastrointestinal: normal bowel sounds, soft - Integumentary Integumentary: decreased turgor - Neurologic Neurologic: CNII-XII intact - Musculoskeletal Musculoskeletal: gait normal, generalized weakness, strength equal bilaterally - Labs CBC & Chem 7: 05/22/20 06:00 05/22/20 06:00 Labs: Abnormal Lab Results - Last 24 Hours (Table) 05/21/20 05/21/20 05/22/20 Range/Units 15:42 15:42 06:00 MCHC 30.6 L (31.0-37.0) g/dL Plt Count 113 L 99 L (150-450) k/uL Lymphocytes # 0.4 L (1.0-4.8) k/uL Chloride (96-109) mmol/L Carbon Dioxide 21.3 L (21.6-31.8) mmol/L Anion Gap 13.70 H (4.00-12.00) mmol/L BUN 46.0 H (9.0-27.0) mg/dL Est GFR (CKD-EPI)NonAf 55.6 L (60.0-200.0) BUN/Creatinine Ratio 38.33 H (12.00-20.00) Ratio Glucose 235 H (70-110) mg/dL Calcium 8.5 L (8.7-10.3) mg/dL 05/22/20 Range/Units 06:00 MCHC (31.0-37.0) g/dL Plt Count (150-450) k/uL Lymphocytes # (1.0-4.8) k/uL Chloride 110 H (96-109) mmol/L Carbon Dioxide (21.6-31.8) mmol/L Anion Gap (4.00-12.00) mmol/L BUN 35.0 H (9.0-27.0) mg/dL Est GFR (CKD-EPI)NonAf (60.0-200.0) BUN/Creatinine Ratio 38.89 H (12.00-20.00) Ratio Glucose 113 H (70-110) mg/dL Calcium 7.2 L (8.7-10.3) mg/dL Assessment and Plan Assessment: Acute hypoxic history failure Covid19 pneumonia bilateral with cytokine jimi Acute kidney injury likely related to intravascular depletion and dehydration/acute tubular necrosis however renal functions have been stable Hypertension hypertensive cardiovascular disease Hypothyroidism History of oral cancer Plan: Will attempt BiPAP 12 and 8 with 100% oxygen if desaturated For now keep on 100% oxygen face mask keep saturation over 88-90% transferred to ICU if appointment intervention fails Prone positioning IV Decadron IV Remdesivir for 5 days patient finished Status post convalescent plasma Will keep the fluid balance even or negative side Monitor renal functions closely Anticoagulation with Lovenox Check inflammatory parameters Zinc vitamin C and vitamin D supplements Further recommendations pending plan of care as per clinical response of patient Time with Patient: Greater than 30
[2020-05-22] MEDS: CHOLECALCIFEROL 400 UNIT TAB PO SCH (12:30)
[2020-05-22 13:57] LABS: Glucose,Whole Blood 117 mg/dL (75-99)
[2020-05-22] MEDS ORDERED: Magnesium Replacement Protocol 1 EACH MISC MISCELLANE PRN (14:30)
[2020-05-22] MEDS: MAGNESIUM SULFATE-D5W PMX 1 GM in DEXTROSE/WATER 1 100ML.BAG IVPB SCH ×2 (14:46→16:49)
[2020-05-22 15:22] VITALS: BMI 24.6
--- NOTE | 2020-05-22 15:37 | P.PN ---
Subjective Progress Note Date: 05/22/20 This is a pleasant 84-year-old male who lives [facility], [place]. He is brought over the EMS for anorexia and low-grade fever along with weakness. He is somewhat confused when he is in the emergency room as he is today. Initial evaluation showed some mild hypoxia with O2 saturation 90%. Blood pressure remained stable. He is been afebrile. He was found to be in mild renal failure with a BUN of 59 creatinine 2.3, urine showed +1 ketones, and he was positive for warner virus the emergency room. This a.m., the patient is somewhat confused. Answers my questions. He has known dementia and hypothyroidism. Chest x-ray showed Covid pneumonia type picture. CT brain showed no acute intracranial hemorrhage but diffuse cerebral atrophy and mild chronic small vessel ischemic change. The patient denies any chest pains or pressures or shortness of breath this time. Repeat a.m. labs are pending. His next of kin, friend is also my patient, and was also admitted with Covid 19 pneumonia yesterday. 05/12/2020 continues on Covid regimen including Remdesivir. Renal function improving. Sitter at bedside. Maintaining O2 sats in the 90s on 2 L nasal cannula. Afebrile. 05/13/2020 continues on Remdesivir, Decadron, vitamin C, vitamin D, zinc. Maintaining O2 sats in the low 90s on 2 L nasal cannula. Follow-up troponin mildly elevated at 0.048. Bradycardic with heart rates in the high 40s to 50s, asymptomatic. EKG ordered. No chest pain. A.m. beta demetria held. Afebrile, normal WBC. 05/14/2020 maintained on Covid regimen, maintaining O2 sats in the 90s on 2 L nasal cannula. Afebrile. Labs pending. Heart rate in the 50s. Denies lightheadedness dizziness or focal deficits. Denies chest pain, palpitations. Complains of exertional shortness of breath. 05/15/2020 appetite fluctuates. Maintaining O2 sats in the 90s on 2 L nasal cannula. Asymptomatic bradycardia, hypertensive. Afebrile, normal WBC. 05/16/2020 significant decline in respiratory status. Early a.m. patient's oxygen requirements worsened, requiring 6 L nasal cannula O2 to maintain O2 sats in the 90s. Shortly thereafter rapidly declined to nonrebreather plus high flow nasal cannula. Chest x-ray stat ordered. Afebrile, labs pending. Denies chest pain, palpitations. 05/19/2020 chest x-ray reporting diffuse bilateral infiltrates consistent with pneumonia. Maintaining O2 sats in the 90s on 15 L high flow nasal cannula. Telemetry sinus bradycardia/ sinus rhythm. Renal function worsening, BUN 38, creatinine 1.26. Afebrile. 05/20/2020 continues on 15 L high flow nasal cannula, maintaining O2 sats in the 90s. BUN up to 45, Creatinine down to 1.09. Bicarb 19. Chest x-ray similar to prior. Telemetry- Sinus bradycardia. Mild hypertension. Afebrile. 05/21/20 transferred out of ICU currently on MedSurg unit. Continues on 15 L high flow. Weakness improving. Afebrile, normal WBC. Labs pending. Hypertensive. 05/22/2020 completed Remdesivir. Respiratory status worsened this morning requiring both nonrebreather with high flow 15 L nasal cannula. Staff reporting patient was 83% O2 saturation on nonrebreather along. Currently desating, unable to maintain O2 sats of 80%, but currently mildly agitated. Afebrile. Denies chest pain, palpitations. Renal function continues to improve. Objective - Vital Signs Vital signs: Vital Signs Temp 97.8 F 05/22/20 05:33 Pulse 50 L 05/22/20 05:33 Resp 22 05/22/20 09:20 BP 176/77 05/22/20 09:22 Pulse Ox 81 L 05/22/20 09:20 Intake & Output 05/21/20 05/22/20 05/22/20 18:59 06:59 18:59 Output Total 400 Balance -400 Output: Urine 400 Other: Voiding Method Indwelling Catheter Indwelling Catheter # Voids 1 # Bowel Movements 0 - Exam GENERAL: Sitting up in bed, wearing a nonrebreather plus high flow nasal cannula, mild distress HEAD: Atraumatic, normocephalic. HEENT: Pupils equal round and reactive to light, conjunctiva are normal. NECK: Supple, no JVD. LUNGS: bilateral bases diminished, scattered rhonchi throughout, fine bibasilar crackles HEART: Regular rate and rhythm without murmurs, rubs or gallops. S1,S2 Normal. ABDOMEN: Soft, nontender, normoactive bowel sounds. No guarding. EXTREMITIES: Normal range of motion, no pitting or edema. No clubbing or cyanosis. NEUROLOGICAL: Cranial nerves II through XII grossly intact. Alert and oriented 2. SKIN: Warm, Dry, no rashes noted. - Labs CBC & Chem 7: 05/22/20 06:00 05/22/20 06:00 Labs: Abnormal Lab Results - Last 24 Hours (Table) 05/21/20 05/21/20 05/22/20 Range/Units 15:42 15:42 06:00 MCHC 30.6 L (31.0-37.0) g/dL Plt Count 113 L 99 L (150-450) k/uL Lymphocytes # 0.4 L (1.0-4.8) k/uL Carbon Dioxide 21.3 L (21.6-31.8) mmol/L Anion Gap 13.70 H (4.00-12.00) mmol/L BUN 46.0 H (9.0-27.0) mg/dL Est GFR (CKD-EPI)NonAf 55.6 L (60.0-200.0) BUN/Creatinine Ratio 38.33 H (12.00-20.00) Ratio Glucose 235 H (70-110) mg/dL Calcium 8.5 L (8.7-10.3) mg/dL Assessment and Plan Assessment: Acute bilateral [place] 19 pneumonia Acute hypoxic respiratory failure secondary to the above acute renal failure, multifactorial, ATN, secondary to the above, dehydration Dehydration, Hypertension Hypothyroidism Unspecified dementia with behavioral disturbance History of oral cancer Sinus bradycardia, asymptomatic Plan: Continue on current medication regime ,monitoring and symptomatic treatment. Attempt proning. Recommend transfer to ICU .Pulmonary notified further evaluation and recommendations pending .continue Covid regimen, anticoagulation. Stat chest x-ray and labs ordered including inflammatory markers. Prognosis guarded given multiple complex medical issues. The impression and plan of care has been dictated as directed. : I performed a history and examination of this patient, discussed the same with the dictator. I agree with the dictator's note ,documented as a scribe. Any additional findings or plans will be noted.
[2020-05-22 15:40] LABS: HCT 47.8 % (39.0-53.0); HGB 15.7 gm/dL (13.0-17.5); Hypochromasia Slight; MCH 28.8 pg (25.0-35.0); MCHC 32.9 g/dL (31.0-37.0); MCV 87.5 fL (80.0-100.0); Mean Platelet Volume 9.1; RBC 5.46 m/uL (4.30-5.90); WBC 10.6 k/uL (3.8-10.6)
[2020-05-22 15:41] LABS: Platelet Count 86 k/uL (150-450)
[2020-05-22 15:51] LABS: Albumin 2.6 g/dL (3.5-5.0); C Reactive Protein 65.4 mg/L (<10.0); Calcium 8.1 mg/dL (8.4-10.2); Potassium 4.5 mmol/L (3.5-5.1); Total Protein 5.1 g/dL (6.3-8.2)
[2020-05-22 15:53] LABS: Band Neutrophils % 1 %; Basophils # (M) 0.11 k/uL (0-0.2); Lymphocytes # (M) 1.27 k/uL (1.0-4.8); Monocytes # (M) 0.21 k/uL (0-1.0); Neutrophils % (M) 84 %; Nucleated Red Blood Cells 0 /100 WBC (0-0); Total Cells Counted 100
[2020-05-22] MEDS: MELATONIN 5 MG TABLET PO SCH (21:48)
[2020-05-23 05:40] LABS: Calcium 7.6 mg/dL (8.4-10.2); Magnesium 2.1 mg/dL (1.6-2.3)
[2020-05-23 05:56] LABS: C Reactive Protein 211.5 mg/L (<10.0)
[2020-05-23 06:28] LABS: Basophils % (A) 0 %; Eosinophils # (A) 0.1 k/uL (0-0.7); Eosinophils % (A) 1 %; HCT 43.7 % (39.0-53.0); HGB 13.6 gm/dL (13.0-17.5); Lymphocytes # (A) 0.3 k/uL (1.0-4.8); Lymphocytes % (A) 3 %; MCH 27.1 pg (25.0-35.0); MCHC 31.1 g/dL (31.0-37.0); MCV 87.2 fL (80.0-100.0); Mean Platelet Volume 9.9; Monocytes # (A) 0.4 k/uL (0-1.0); Monocytes % (A) 5 %; Neutrophils # (A) 8.4 k/uL (1.3-7.7); Neutrophils % (A) 90 %; RBC 5.01 m/uL (4.30-5.90); RDW 15.2 % (11.5-15.5); WBC 9.3 k/uL (3.8-10.6)
[2020-05-23 06:30] LABS: Platelet Count 74 k/uL (150-450)
--- NOTE | 2020-05-23 09:23 | XR ---
EXAMINATION TYPE: XR chest 1V portable DATE OF EXAM: 05/23/2020 COMPARISON: Prior chest x-ray 05/22/2020 HISTORY: Shortness of breath TECHNIQUE: Single frontal view of the chest is obtained. FINDINGS: Parenchymal changes show similar appearance. There is persistent elevation of right hemidi aphragm. Heart size is stable. There is no evident pneumothorax. Aorta is dense. Interstitium is incr eased. IMPRESSION: Correlate for pneumonia versus edema, difficult to exclude small effusion.
[2020-05-23 09:41] LABS: Ferritin 918.1 ng/mL (22.0-322.0)
[2020-05-23 09:41] LABS: Ferritin 952.6 ng/mL (22.0-322.0)
--- NOTE | 2020-05-23 09:54 | PN ---
PROGRESS NOTE This is an 84-year-old gentleman with a COVID pneumonia, was on the floor and developed hypoxia, had a run of wide QRS tachycardia, was admitted back to the ICU. He is on a high-flow oxygen and a non-rebreather, developed ventricular tachycardia. I have reviewed the rhythm strips. This happened in the setting of hypomagnesemia and hypoxia. Magnesium has been corrected. Patient has occasional rare PVCs maintaining sinus rhythm. He is already on a beta demetria. LV function is fairly well preserved. I am recommending that we continue his current medical regimen. No intervention necessary for the 10-beat run of ventricular tachycardia. Electrolytes are improved, her hypoxia has also improved a lot. We will continue to see the patient as needed. MMODL / IJN: [id number] /
[2020-05-23] MEDS: LEVOTHYROXINE 50 MCG TAB PO SCH (10:32)
[2020-05-23] MEDS: amLODIPine 10 MG TAB PO SCH ×2 (10:33→10:42)
[2020-05-23] MEDS: ASCORBIC ACID 500 MG TAB PO SCH (10:33)
[2020-05-23] MEDS: CYANOCOBALAMIN 500 MCG TAB PO SCH (10:33)
[2020-05-23] MEDS: DONEPEZIL 10 MG TAB PO SCH (10:34)
[2020-05-23] MEDS: LORATADINE 10 MG TAB PO SCH (10:34)
[2020-05-23] MEDS: MEMANTINE 10 MG TAB PO SCH ×2 (10:34→22:07)
[2020-05-23] MEDS: METOPROLOL TARTRATE 12.5 MG TAB PO SCH ×2 (10:41→21:32)
[2020-05-23] MEDS: ENOXAPARIN 40 MG/0.4 ML SYRINGE SQ SCH (10:41)
[2020-05-23] MEDS: SODIUM CHLORIDE 0.9% 1,000 ML IV SCH ×2 (10:42→22:09)
[2020-05-23] MEDS: ZINC SULFATE 220 MG CAP PO SCH (10:43)
[2020-05-23] MEDS: PANTOPRAZOLE 40 MG TABLET PO SCH (10:43)
--- NOTE | 2020-05-23 13:52 | P.PN ---
Subjective Progress Note Date: 05/23/20 This is a pleasant 84-year-old male who lives [facility]. He is brought over the EMS for anorexia and low-grade fever along with weakness. He is somewhat confused when he is in the emergency room as he is today. Initial evaluation showed some mild hypoxia with O2 saturation 90%. Blood pressure remained stable. He is been afebrile. He was found to be in mild renal failure with a BUN of 59 creatinine 2.3, urine showed +1 ketones, and he was positive for warner virus the emergency room. This a.m., the patient is somewhat confused. Answers my questions. He has known dementia and hypothyroidism. Chest x-ray showed Covid pneumonia type picture. CT brain showed no acute intracranial hemorrhage but diffuse cerebral atrophy and mild chronic small vessel ischemic change. The patient denies any chest pains or pressures or shortness of breath this time. Repeat a.m. labs are pending. His next of kin, friend is also my patient, and was also admitted with Covid 19 pneumonia yesterday. 05/12/2020 continues on Covid regimen including Remdesivir. Renal function improving. Sitter at bedside. Maintaining O2 sats in the 90s on 2 L nasal cannula. Afebrile. 05/13/2020 continues on Remdesivir, Decadron, vitamin C, vitamin D, zinc. Maintaining O2 sats in the low 90s on 2 L nasal cannula. Follow-up troponin mildly elevated at 0.048. Bradycardic with heart rates in the high 40s to 50s, asymptomatic. EKG ordered. No chest pain. A.m. beta demetria held. Afebrile, normal WBC. 05/14/2020 maintained on Covid regimen, maintaining O2 sats in the 90s on 2 L nasal cannula. Afebrile. Labs pending. Heart rate in the 50s. Denies lightheadedness dizziness or focal deficits. Denies chest pain, palpitations. Complains of exertional shortness of breath. 05/15/2020 appetite fluctuates. Maintaining O2 sats in the 90s on 2 L nasal cannula. Asymptomatic bradycardia, hypertensive. Afebrile, normal WBC. 05/16/2020 significant decline in respiratory status. Early a.m. patient's oxygen requirements worsened, requiring 6 L nasal cannula O2 to maintain O2 sats in the 90s. Shortly thereafter rapidly declined to nonrebreather plus high flow nasal cannula. Chest x-ray stat ordered. Afebrile, labs pending. Denies chest pain, palpitations. 05/19/2020 chest x-ray reporting diffuse bilateral infiltrates consistent with pneumonia. Maintaining O2 sats in the 90s on 15 L high flow nasal cannula. Telemetry sinus bradycardia/ sinus rhythm. Renal function worsening, BUN 38, creatinine 1.26. Afebrile. 05/20/2020 continues on 15 L high flow nasal cannula, maintaining O2 sats in the 90s. BUN up to 45, Creatinine down to 1.09. Bicarb 19. Chest x-ray similar to prior. Telemetry- Sinus bradycardia. Mild hypertension. Afebrile. 05/21/20 transferred out of ICU currently on MedSurg unit. Continues on 15 L high flow. Weakness improving. Afebrile, normal WBC. Labs pending. Hypertensive. 05/22/2020 completed Remdesivir. Respiratory status worsened this morning requiring both nonrebreather with high flow 15 L nasal cannula. Staff reporting patient was 83% O2 saturation on nonrebreather along. Currently desating, unable to maintain O2 sats of 80%, but currently mildly agitated. Afebrile. Denies chest pain, palpitations. Renal function continues to improve. 05/23/20 transferred back into the ICU yesterday related to worsening hypoxic respiratory failure. Inflammatory markers trended up yesterday. Chest x-ray reporting persistent elevated right hemidiaphragm increased interstitium with similar appearance of parenchymal. Currently requiring airflow 60% in addition to nonrebreather to maintain O2 sats of 88-90%. Staff reports patient continues pulling mask off stating he does not want to do this anymore. Poor oral intake, creatinine mildly worsened up to 1.19. Receiving gentle IV fluid hydration with lactic acid normalized. Platelets trending down, currently 74. Yesterday in addition to worsening hypoxia,patient developed runs of V. tach, magnesium supplemented and currently up to 2.1. Evaluated by cardiology, recommending to continue on beta demetria. No further runs of V. tach, telemetry sinus rhythm with PVCs. Afebrile, normal WBC. Objective - Vital Signs Vital signs: Vital Signs Temp 97.4 F L 05/23/20 08:00 Pulse 78 12/11/20 10:00 Resp 38 H 05/23/20 10:00 BP 195/87 05/23/20 10:00 Pulse Ox 87 L 05/23/20 10:00 Intake & Output 05/22/20 05/23/20 05/23/20 18:59 06:59 18:59 Intake Total 500 1150 75 Output Total 950 525 30 Balance -450 625 45 Weight 84.8 kg 83.1 kg Intake: IV 500 1050 75 Magnesium Sulfate-D5w Pmx 200 1 gm In Dextrose/Water 1 100ml.bag @ 100 mls/hr IVPB Q1H [facility] Rx#: [id number] Sodium Chloride 0.9% 1, 300 1050 75 000 ml @ 75 mls/hr IV . [id number] FABIAN Rx#:[id number] Oral 100 Output: Urine 950 525 30 Other: Voiding Method Indwelling Catheter Indwelling Catheter - Exam GENERAL: Sitting up in bed, wearing a nonrebreather plus high flow nasal cannula, mild distress HEAD: Atraumatic, normocephalic. HEENT: Pupils equal round and reactive to light, conjunctiva are normal. NECK: Supple, no JVD. LUNGS: bilateral bases diminished, scattered rhonchi throughout HEART: Regular rate and rhythm without murmurs, rubs or gallops. S1,S2 Normal. ABDOMEN: Soft, nontender, normoactive bowel sounds. No guarding. EXTREMITIES: Normal range of motion, no pitting or edema. No clubbing or cyanosis. NEUROLOGICAL: Cranial nerves II through XII grossly intact. Alert and oriented 2. SKIN: Warm, Dry, no rashes noted. - Labs CBC & Chem 7: 05/23/20 04:55 05/23/20 04:55 Labs: Abnormal Lab Results - Last 24 Hours (Table) 05/22/20 05/22/20 05/22/20 Range/Units 13:54 15:12 15:12 Plt Count 86 L (150-450) k/uL Neutrophils # (1.3-7.7) k/uL Neutrophils # (Manual) 9.00 H (1.3-7.7) k/uL Lymphocytes # (1.0-4.8) k/uL D-Dimer 12.13 H (<0.60) mg/L FEU Sodium (137-145) mmol/L Chloride (98-107) mmol/L BUN (9-20) mg/dL Glucose (74-99) mg/dL POC Glucose (mg/dL) 117 H (75-99) mg/dL Plasma Lactic Acid [place] (0.7-2.0) mmol/L Calcium (8.4-10.2) mg/dL Ferritin (22.0-322.0) ng/mL Total Bilirubin (0.2-1.3) mg/dL Lactate Dehydrogenase (313-618) U/L Creatine Kinase (55-170) U/L C-Reactive Protein (<10.0) mg/L Total Protein (6.3-8.2) g/dL Albumin (3.5-5.0) g/dL 05/22/20 05/22/20 05/23/20 Range/Units 15:12 15:12 04:55 Plt Count 74 L (150-450) k/uL Neutrophils # 8.4 H (1.3-7.7) k/uL Neutrophils # (Manual) (1.3-7.7) k/uL Lymphocytes # 0.3 L (1.0-4.8) k/uL D-Dimer (<0.60) mg/L FEU Sodium (137-145) mmol/L Chloride 108 H (98-107) mmol/L BUN 38 H (9-20) mg/dL Glucose 134 H (74-99) mg/dL POC Glucose (mg/dL) (75-99) mg/dL Plasma Lactic Acid [place] 2.3 H* (0.7-2.0) mmol/L Calcium 8.1 L (8.4-10.2) mg/dL Ferritin 952.6 H (22.0-322.0) ng/mL Total Bilirubin 2.0 H (0.2-1.3) mg/dL Lactate Dehydrogenase 1574 H (313-618) U/L Creatine Kinase (55-170) U/L C-Reactive Protein 65.4 H (<10.0) mg/L Total Protein 5.1 L (6.3-8.2) g/dL Albumin 2.6 L (3.5-5.0) g/dL 05/23/20 Range/Units 04:55 Plt Count (150-450) k/uL Neutrophils # (1.3-7.7) k/uL Neutrophils # (Manual) (1.3-7.7) k/uL Lymphocytes # (1.0-4.8) k/uL D-Dimer (<0.60) mg/L FEU Sodium 136 L (137-145) mmol/L Chloride (98-107) mmol/L BUN 35 H (9-20) mg/dL Glucose 121 H (74-99) mg/dL POC Glucose (mg/dL) (75-99) mg/dL Plasma Lactic Acid [place] (0.7-2.0) mmol/L Calcium 7.6 L (8.4-10.2) mg/dL Ferritin 918.1 H (22.0-322.0) ng/mL Total Bilirubin (0.2-1.3) mg/dL Lactate Dehydrogenase (313-618) U/L Creatine Kinase 27 L (55-170) U/L C-Reactive Protein 211.5 H (<10.0) mg/L Total Protein (6.3-8.2) g/dL Albumin (3.5-5.0) g/dL Assessment and Plan Assessment: Acute bilateral Colvid 19 pneumonia Acute hypoxic respiratory failure secondary to the above Nonsustained runs of V. tach acute renal failure, multifactorial, ATN, secondary to the above, dehydration Thrombocytopenia Dehydration, Hypertension Hypothyroidism Unspecified dementia with behavioral disturbance History of oral cancer Sinus bradycardia, asymptomatic Plan: Continue on current medication regime ,monitoring and symptomatic treatment. ICU management as per lead retail sales associate .continue Covid regimen, anticoagulation. Maintain supportive care , if no improvement in 24 hours , PCP-Dr. Diamond to discuss CODE STATUS with son/family.Prognosis guarded given multiple complex medical issues. The impression and plan of care has been dictated as directed. : I performed a history and examination of this patient, discussed the same with the dictator. I agree with the dictator's note ,documented as a scribe. Any additional findings or plans will be noted.
[2020-05-23] MEDS: CHOLECALCIFEROL 400 UNIT TAB PO SCH (14:45)
--- NOTE | 2020-05-23 15:22 | P.PN ---
Subjective Progress Note Date: 05/23/20 Principal diagnosis: Acute hypoxic history failure [place] in 19 pneumonia bilateral Acute kidney injury likely related to intravascular depletion and dehydration Hypertension hypertensive cardiovascular disease Hypothyroidism History of oral cancer 05/23/2020, patient seen eval examined during the rounds labs reviewed medications reviewed care plan discussed, patient pulled off his oxygen earlier today saturation dropped down to 20%, patient was very dusky 100% nonrebreather mask has been replaced to about 35-40 minutes to have oxygen back into low 80s range, currently patient is on 100% on rebreather mask saturation is 90%, patient has been denying nutrition as well and expressed his wishes wants to , inflammatory markers check, patient has intermittent runs of V. tach likely related to hypomagnesemia and magnesium has been replaced V. tach, not seen any more, 05/22/2020, patient seen eval examined during the rounds labs reviewed medications reviewed care plan discussed, patient has intermittent significant desaturation this morning tried to prone him but however he could not understand due to severe dementia sats were better when he was sideways, running cause further desaturation, patient is currently supine on the 100% nonrebreather mask saturation is up to 90%, remains afebrile, discussed with the respiratory bedside before transfer to the ICU will attempt BiPAP in case if he desaturated on high flow oxygen will initiate setting of 05/20 with 100% oxygen 05/21/2020, patient seen eval examined during the rounds labs reviewed medications reviewed care plan discussed, currently on 15 L high flow oxygen, moved out of the ICU on MedSurg unit, labs not done today, chest x-ray from yesterday overall stable finding 05/20/2020, patient seen eval examined during rounds labs reviewed medications reviewed care plan discussed, patient remains on supplemental oxygen, currently on 15 L high flow, oxygen saturation ranging from 85-92%, hemodynamic stable remains afebrile 05/19/2020, patient seen and evaluated examined labs reviewed medications rev iewed, oxygenation somewhat improved today, patient on 100% oxygen saturation 88-89%, diffuse bilateral infiltrate noted on today's x-ray consistent with pneumonia 05/18/2020, patient seen eval examined during rounds labs reviewed medications reviewed remains on 100% nonrebreather mask, oxygen saturation is a 89-90%, pleasantly confused, labs reviewed, medications reviewed and encourage deep leilani thing exercise incentive spirometry prone positioning if possible 05/17/2020, patient seen eval examined during the rounds labs reviewed medications reviewed patient remains on 100% oxygen on 15 clear high flow, oxygen saturation is stable into mid 90s, and request has been initiated for convalescent plasma, patient is status post IV REMdesivir, has been on Decadron, oxygen saturation stable 97%, extensive pneumonia in the right side some patchy infiltrate on the left base 05/16/2020, patient seen eval examined during the rounds labs reviewed medications reviewed care plan discussed, denies any chest pain, however patient's respiratory status got worse early in the morning FiO2 increase from 2 L up to 15 L high flow oxygen along with nonrebreather mask with that saturation 90-94%, chest x-ray stat portable performed reviewed, showing worsening of airspace disease more so on the right side compared to left side, 05/15/2020, patient seen eval examined during rounds labs reviewed medications reviewed appetite has been poor, oxygenation however been stable for 2 L, today is the last dose of IV Remdesivir, oxygen saturation remains stable asymptomatic bradycardia however has been noted, 96% on 2 L, 05/14/2020, patient seen eval examined during the rounds labs reviewed medications reviewed, remains on therapy, on 2 L oxygen saturation have been stable, but does feel short of breath saturation is 95%, 05/13/2020, patient seen eval examined during rounds labs reviewed medications reviewed care plan discussed, patient is still complaining or shortness of breath she he is on 2 L oxygen oxygen saturation have been stable, remains afebrile with stable hemodynamics, 91% to 95% on current oxygen, patient remain on Hexadrol along with IV REMdesivir 05/12/2020, patient seen eval examined during the rounds labs reviewed medications reviewed shortness of breath still there on 2 L oxygen, confusion stable somewhat agitated but mental status have improved compared, bedside sitter is present, BUN/creatinine improved to 48 and 1.5, This is a 84-year-old male resident of a nursing home, came into the hospital with altered mental status, for the last 3 days patient has not been eating very weak fatigued and tired, EMS was notified brought into the hospital for further evaluation, his saturation on room air was 90%, afebrile no arrival, patient has significant history of oral cancer, 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 dementia and Alzheimer's disease, his BUN/creatinine is 59 and 2.3, warner virus PCR positive, CT head chronic old cerebral atrophic and small vascular changes were noted, chest x-ray showed bilateral multifocal patchy infiltrate right side more than the left side consistent with covid 19 pneumonia Objective - Vital Signs Vital signs: Vital Signs Temp 97.9 F 05/23/20 12:00 Pulse 86 05/23/20 14:00 Resp 37 H 05/23/20 14:00 BP 161/83 05/23/20 14:00 Pulse Ox 87 L 05/23/20 14:00 Intake & Output 05/22/20 05/23/20 05/23/20 18:59 06:59 18:59 Intake Total 500 1150 525 Output Total 950 525 380 Balance -450 625 145 Weight 84.8 kg 83.1 kg Intake: IV 500 1050 525 Magnesium Sulfate-D5w Pmx 200 1 gm In Dextrose/Water 1 100ml.bag @ 100 mls/hr IVPB Q1H [facility] Rx#: [id number] Sodium Chloride 0.9% 1, 300 1050 525 000 ml @ 75 mls/hr IV . [id number] [facility] Rx#:[id number] Oral 100 Output: Urine 950 525 380 Other: Voiding Method Indwelling Catheter Indwelling Catheter Indwelling Catheter - Exam - Constitutional General appearance: average body habitus, cooperative, disheveled, mild distress - EENT Eyes: PERRLA Ears: bilateral: normal - Neck Carotids: bilateral: upstroke normal Thyroid: bilateral: normal size - Respiratory Respiratory: bilateral: diminished - Cardiovascular Rhythm: regular Heart sounds: normal: S1, S2 - Gastrointestinal General gastrointestinal: normal bowel sounds, soft - Integumentary Integumentary: decreased turgor - Neurologic Neurologic: CNII-XII intact - Musculoskeletal Musculoskeletal: gait normal, generalized weakness, strength equal bilaterally - Labs CBC & Chem 7: 05/23/20 04:55 05/23/20 04:55 Labs: Abnormal Lab Results - Last 24 Hours (Table) 05/22/20 05/22/20 05/22/20 Range/Units 15:12 15:12 15:12 Plt Count 86 L (150-450) k/uL Neutrophils # (1.3-7.7) k/uL Neutrophils # (Manual) 9.00 H (1.3-7.7) k/uL Lymphocytes # (1.0-4.8) k/uL D-Dimer 12.13 H (<0.60) mg/L FEU Sodium (137-145) mmol/L Chloride 108 H (98-107) mmol/L BUN 38 H (9-20) mg/dL Glucose 134 H (74-99) mg/dL Plasma Lactic Acid [place] (0.7-2.0) mmol/L Calcium 8.1 L (8.4-10.2) mg/dL Ferritin 952.6 H (22.0-322.0) ng/mL Total Bilirubin 2.0 H (0.2-1.3) mg/dL Lactate Dehydrogenase 1574 H (313-618) U/L Creatine Kinase (55-170) U/L C-Reactive Protein 65.4 H (<10.0) mg/L Total Protein 5.1 L (6.3-8.2) g/dL Albumin 2.6 L (3.5-5.0) g/dL 05/22/20 05/23/20 05/23/20 Range/Units 15:12 04:55 04:55 Plt Count 74 L (150-450) k/uL Neutrophils # 8.4 H (1.3-7.7) k/uL Neutrophils # (Manual) (1.3-7.7) k/uL Lymphocytes # 0.3 L (1.0-4.8) k/uL D-Dimer (<0.60) mg/L FEU Sodium 136 L (137-145) mmol/L Chloride (98-107) mmol/L BUN 35 H (9-20) mg/dL Glucose 121 H (74-99) mg/dL Plasma Lactic Acid [place] 2.3 H* (0.7-2.0) mmol/L Calcium 7.6 L (8.4-10.2) mg/dL Ferritin 918.1 H (22.0-322.0) ng/mL Total Bilirubin (0.2-1.3) mg/dL Lactate Dehydrogenase (313-618) U/L Creatine Kinase 27 L (55-170) U/L C-Reactive Protein 211.5 H (<10.0) mg/L Total Protein (6.3-8.2) g/dL Albumin (3.5-5.0) g/dL Assessment and Plan Assessment: Acute hypoxic history failure Intermittent episodes of V. tach and PVCs likely due to hypo-magnesium Covid19 pneumonia bilateral with cytokine jimi Acute kidney injury likely related to intravascular depletion and dehydration/acute tubular necrosis however renal functions have been stable Hypertension hypertensive cardiovascular disease Hypothyroidism History of oral cancer Plan: For now keep on 100% oxygen face mask keep saturation over 88-90% transferred to ICU if appointment intervention fails Prone positioning if possible Keep oxygen on IV Decadron IV Remdesivir for 5 days patient finished Status post convalescent plasma Will keep the fluid balance even or negative side Monitor renal functions closely Anticoagulation with Lovenox Check inflammatory parameters Zinc vitamin C and vitamin D supplements Further recommendations pending plan of care as per clinical response of patient Prognosis very guarded with poor likelihood of recovery Time with Patient: Greater than 30
[2020-05-23 16:37] LABS: LD Isoenzymes 1 19 % (19-38); LD Isoenzymes 2 26 % (30-43); LD Isoenzymes 3 17 % (16-26); LD Isoenzymes 4 12 % (3-12); LD Isoenzymes 5 26 % (3-14); Lactacte Dehydrogenase(LD) ISO 369 U/L (120-250)
[2020-05-23] MEDS: MELATONIN 5 MG TABLET PO SCH (22:06)
[2020-05-24 05:08] LABS: ABG HCO3 23 mmol/L (21-25); ABG Oxygen Saturation 89.8 % (94-97); ABG PCO2 32 mmHg (35-45); ABG PH 7.47 (7.35-7.45); ABG TCO2 24 mmol/L (19-24); Allen Test Performed? Yes
--- NOTE | 2020-05-24 05:26 | XR ---
EXAM: XR Chest, 1 View CLINICAL HISTORY: ITS.REASON XR Reason: SOB TECHNIQUE: Frontal view of the chest. COMPARISON: 05/23/2020 FINDINGS: Lungs: Diffuse interstitial prominence with similar somewhat curvilinear opacity involving the right midlung zone extending to the right infrahilar region medially. There is similar subsegmental opacities in the peripheral left midlung zone and left lung base. Stable elevation of the right hemidiaphragm. Pleural space: Blunting of the right costophrenic margin remains. The left costophrenic margin appears to be slightly more sharp. No pneumothorax. Heart: Unremarkable. No cardiomegaly. Mediastinum: No significant alteration. The trachea is midline. Bones/joints: Unremarkable. IMPRESSION: Diffuse interstitial prominence with similar somewhat curvilinear opacity involving the right midlung zone extending to the right infrahilar region medially. There is similar subsegmental opacities in the peripheral left midlung zone and left lung base. The interstitial changes may represent a chronic component of underlying pulmonary edema is suspected. The asymmetric airspace disease may represent asymmetric edema. However, coexisting infection is considered. Overall, the chest radiograph is not significantly altered in appearance.
[2020-05-24 05:36] LABS: Basophils # (A) 0.1 k/uL (0-0.2); Basophils % (A) 1 %; Eosinophils % (A) 0 %; HCT 43.4 % (39.0-53.0); HGB 14.1 gm/dL (13.0-17.5); Lymphocytes # (A) 0.2 k/uL (1.0-4.8); Lymphocytes % (A) 2 %; MCH 28.2 pg (25.0-35.0); MCHC 32.5 g/dL (31.0-37.0); MCV 86.9 fL (80.0-100.0); Mean Platelet Volume 9.2; Monocytes # (A) 0.7 k/uL (0-1.0); Monocytes % (A) 6 %; Neutrophils # (A) 10.5 k/uL (1.3-7.7); Neutrophils % (A) 90 %; RBC 4.99 m/uL (4.30-5.90); RDW 15.1 % (11.5-15.5); WBC 11.7 k/uL (3.8-10.6)
[2020-05-24 05:39] LABS: Platelet Count 69 k/uL (150-450)
[2020-05-24 05:55] LABS: ABG PO2 54 mmHg (83-108)
[2020-05-24 08:38] LABS: Calcium 7.8 mg/dL (8.4-10.2); Potassium 3.9 mmol/L (3.5-5.1)
[2020-05-24] MEDS: ENOXAPARIN 40 MG/0.4 ML SYRINGE SQ SCH (08:43)
[2020-05-24] MEDS: LEVOTHYROXINE 50 MCG TAB PO SCH (08:43)
[2020-05-24 08:50] LABS: C Reactive Protein 318.7 mg/L (<10.0)
[2020-05-24] MEDS: DEXTROSE 5%-0.9% NACL 1,000 ML IV SCH (10:45)
--- NOTE | 2020-05-24 11:26 | P.PN ---
Subjective Progress Note Date: 05/24/20 Principal diagnosis: Acute hypoxic history failure [place] in 19 pneumonia bilateral Acute kidney injury likely related to intravascular depletion and dehydration Hypertension hypertensive cardiovascular disease Hypothyroidism History of oral cancer 05/24/2020, patient seen eval examined during the rounds labs reviewed medications reviewed care plan discussed, patient remains confused, remains on BiPAP 30/03 with 100% oxygen oxygen saturation is 91%, a bedside room sitter is present observing the patient so he will not take off BiPAP mask, his chest x- ray continued to show diffuse interstitial prominence patient is gently being hydrated, patient has severe protein calorie malnourishment, INR has been consulted for PICC line and TPN will be started in the meantime we'll continue IV fluids change it to D5 normal saline 75 mL an hour, arterial blood gas shows significant hypoxemia with pO2 just 5400% oxygen, BUN/creatinine slightly getting worse 34 and 1.25, inflammatory markers remains up 05/23/2020, patient seen eval examined during the rounds labs reviewed medi cations reviewed care plan discussed, patient pulled off his oxygen earlier today saturation dropped down to 20%, patient was very dusky 100% nonrebreather mask has been replaced to about 35-40 minutes to have oxygen back into low 80s range, currently patient is on 100% on rebreather mask saturation is 90%, patient has been denying nutrition as well and expressed his wishes wants to , inflammatory markers check, patient has intermittent runs of V. tach likely related to hypomagnesemia and magnesium has been replaced V. tach, not seen any more, 05/22/2020, patient seen eval examined during the rounds labs reviewed medications reviewed care plan discussed, patient has intermittent significant desaturation this morning tried to prone him but however he could not understand due to severe dementia sats were better when he was sideways, running cause further desaturation, patient is currently supine on the 100% nonrebreather mask saturation is up to 90%, remains afebrile, discussed with the respiratory bedside before transfer to the ICU will attempt BiPAP in case if he desaturated on high flow oxygen will initiate setting of 05/20 with 100% oxygen 05/21/2020, patient seen eval examined during the rounds labs reviewed medications reviewed care plan discussed, currently on 15 L high flow oxygen, moved out of the ICU on MedSur unit, labs not done today, chest x-ray from yesterday overall stable finding 05/20/2020, patient seen eval examined during rounds labs reviewed medications reviewed care plan discussed, patient remains on supplemental oxygen, currently on 15 L high flow, oxygen saturation ranging from 85-92%, hemodynamic stable remains afebrile 05/19/2020, patient seen and evaluated examined labs reviewed medications reviewed, oxygenation somewhat improved today, patient on 100% oxygen saturation 88-89%, diffuse bilateral infiltrate noted on today's x-ray consistent with pneumonia 05/18/2020, patient seen eval examined during rounds labs reviewed medications reviewed remains on 100% nonrebreather mask, oxygen saturation is a 89-90%, pleasantly confused, labs reviewed, medications reviewed and encourage deep breathing exercise incentive spirometry prone positioning if possible 05/17/2020, patient seen eval examined during the rounds labs reviewed medicatio ns reviewed patient remains on 100% oxygen on 15 clear high flow, oxygen saturation is stable into mid 90s, and request has been initiated for convalescent plasma, patient is status post IV REMdesivir, has been on Decadron, oxygen saturation stable 97%, extensive pneumonia in the right side some patchy infiltrate on the left base 05/16/2020, patient seen eval examined during the rounds labs reviewed medications reviewed care plan discussed, denies any chest pain, however patient's respiratory status got worse early in the morning FiO2 increase from 2 L up to 15 L high flow oxygen along with nonrebreather mask with that saturation 90-94%, chest x-ray stat portable performed reviewed, showing worsening of airspace disease more so on the right side compared to left side, 05/15/2020, patient seen eval examined during rounds labs reviewed medications reviewed appetite has been poor, oxygenation however been stable for 2 L, today is the last dose of IV Remdesivir, oxygen saturation remains stable asymptomatic bradycardia however has been noted, 96% on 2 L, 05/14/2020, patient seen eval examined during the rounds labs reviewed medications reviewed, remains on therapy, on 2 L oxygen saturation have been stable, but does feel short of breath saturation is 95%, 05/13/2020, patient seen eval examined during rounds labs reviewed medications reviewed care plan discussed, patient is still complaining or shortness of breath she he is on 2 L oxygen oxygen saturation have been stable, remains afebrile with stable hemodynamics, 91% to 95% on current oxygen, patient remain on Hexadrol along with IV REMdesivir 05/12/2020, patient seen eval examined during the rounds labs reviewed medica tions reviewed shortness of breath still there on 2 L oxygen, confusion stable somewhat agitated but mental status have improved compared, bedside sitter is present, BUN/creatinine improved to 48 and 1.5, This is a 84-year-old male resident of a [facility], came into the hospital with altered mental status, for the last 3 days patient has not been eating very weak fatigued and tired, EMS was notified brought into the hospital for further evaluation, his saturation on room air was 90%, afebrile no arrival, patient has significant history of oral cancer, 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 dementia and Alzheimer's disease, his BUN/creatinine is 59 and 2.3, warner virus PCR positive, CT head chronic old cerebral atrophic and small vascular changes were noted, chest x-ray showed bilateral multifocal patchy infiltrate right side more than the left side consistent with covid 19 pneumonia Objective - Vital Signs Vital signs: Vital Signs Temp 98.1 F 05/24/20 08:00 Pulse 90 05/24/20 10:00 Resp 38 H 05/24/20 10:00 BP 166/80 05/24/20 10:00 Pulse Ox 90 L 05/24/20 10:00 Intake & Output 05/23/20 05/24/20 05/24/20 18:59 06:59 18:59 Intake Total 750 930 300 Output Total 580 555 225 Balance 170 375 75 Weight 78.8 kg Intake: IV 750 900 300 Sodium Chloride 0.9% 1, 750 900 300 000 ml @ 75 mls/hr IV . [id number] [facility] Rx#:[id number] Oral 30 Output: Urine 580 555 225 Other: Voiding Method Indwelling Catheter Indwelling Catheter Indwelling Catheter - Exam - Constitutional General appearance: average body habitus, cooperative, disheveled, mild distress - EENT Eyes: PERRLA Ears: bilateral: normal - Neck Carotids: bilateral: upstroke normal Thyroid: bilateral: normal size - Respiratory Respiratory: bilateral: diminished - Cardiovascular Rhythm: regular Heart sounds: normal: S1, S2 - Gastrointestinal General gastrointestinal: normal bowel sounds, soft - Integumentary Integumentary: decreased turgor - Neurologic Neurologic: CNII-XII intact - Musculoskeletal Musculoskeletal: gait normal, generalized weakness, strength equal bilaterally - Labs CBC & Chem 7: 05/24/20 04:48 05/24/20 04:47 Labs: Abnormal Lab Results - Last 24 Hours (Table) 05/20/20 05/24/20 05/24/20 Range/Units 04:18 04:47 04:48 WBC 11.7 H (3.8-10.6) k/uL Plt Count 69 L (150-450) k/uL Neutrophils # 10.5 H (1.3-7.7) k/uL Lymphocytes # 0.2 L (1.0-4.8) k/uL D-Dimer (<0.60) mg/L FEU ABG pH (7.35-7.45) ABG pCO2 (35-45) mmHg ABG pO2 (83-108) mmHg ABG O2 Saturation (94-97) % Chloride 110 H (98-107) mmol/L BUN 34 H (9-20) mg/dL Glucose 112 H (74-99) mg/dL Calcium 7.8 L (8.4-10.2) mg/dL Lactate Dehydrogenase 1619 H (313-618) U/L LD Isoenzymes 369 H (120-250) U/L LD 2 26 L (30-43) % LD 5 26 H (3-14) % Creatine Kinase 29 L (55-170) U/L C-Reactive Protein 318.7 H (<10.0) mg/L 05/24/20 05/24/20 Range/Units 04:48 05:05 WBC (3.8-10.6) k/uL Plt Count (150-450) k/uL Neutrophils # (1.3-7.7) k/uL Lymphocytes # (1.0-4.8) k/uL D-Dimer 15.75 H (<0.60) mg/L FEU ABG pH 7.47 H (7.35-7.45) ABG pCO2 32 L (35-45) mmHg ABG pO2 54 L* (83-108) mmHg ABG O2 Saturation 89.8 L (94-97) % Chloride (98-107) mmol/L BUN (9-20) mg/dL Glucose (74-99) mg/dL Calcium (8.4-10.2) mg/dL Lactate Dehydrogenase (313-618) U/L LD Isoenzymes (120-250) U/L LD 2 (30-43) % LD 5 (3-14) % Creatine Kinase (55-170) U/L C-Reactive Protein (<10.0) mg/L Assessment and Plan Assessment: ARDS related to Covid 19 pneumonia Acute hypoxic history failure Intermittent episodes of V. tach and PVCs likely due to hypo-magnesium Covid19 pneumonia bilateral with cytokine jimi Acute kidney injury likely related to intravascular depletion and dehydration/acute tubular necrosis however renal functions have been stable Hypertension hypertensive cardiovascular disease Hypothyroidism History of oral cancer Advanced dementia and Alzheimer's disease Plan: For now keep on 100% oxygen face mask keep saturation over 88-90% and observe closely in ICU PICC line and TPN Prone positioning if possible Keep oxygen on IV Decadron IV Remdesivir for 5 days patient finished Status post convalescent plasma Will keep the fluid balance even or negative side Monitor renal functions closely Anticoagulation with Lovenox Check inflammatory parameters Zinc vitamin C and vitamin D supplements Further recommendations pending plan of care as per clinical response of patient Prognosis very guarded with poor likelihood of recovery Time with Patient: Greater than 30
[2020-05-24] MEDS: HALOPERIDOL LACTATE 5 MG/ML 1 ML VIAL IM PRN (12:27)
[2020-05-24] MEDS: ASCORBIC ACID 500 MG TAB PO SCH (12:38)
[2020-05-24] MEDS: DONEPEZIL 10 MG TAB PO SCH (12:38)
[2020-05-24] MEDS: LORATADINE 10 MG TAB PO SCH (12:38)
[2020-05-24] MEDS: CYANOCOBALAMIN 500 MCG TAB PO SCH (12:38)
[2020-05-24] MEDS: ZINC SULFATE 220 MG CAP PO SCH (12:38)
[2020-05-24] MEDS: amLODIPine 10 MG TAB PO SCH (12:38)
[2020-05-24] MEDS: MEMANTINE 10 MG TAB PO SCH ×2 (12:38→21:59)
[2020-05-24] MEDS: CHOLECALCIFEROL 400 UNIT TAB PO SCH (12:39)
[2020-05-24] MEDS: SODIUM CHLORIDE 0.9% 1,000 ML IV SCH (12:39)
[2020-05-24] MEDS ORDERED: LORazepam 2 MG/ML INJ ONE (12:49)
[2020-05-24] MEDS ORDERED: LORazepam 2 MG/ML INJ IV PRN (12:49)
[2020-05-24] MEDS ORDERED: propofoL 100 ML IV ONE (12:59)
[2020-05-24] MEDS: METOPROLOL TARTRATE 12.5 MG TAB PO SCH (13:46)
[2020-05-24] MEDS: PANTOPRAZOLE 40 MG TABLET PO SCH (13:46)
--- NOTE | 2020-05-24 13:56 | XR ---
EXAMINATION TYPE: XR chest 1V portable DATE OF EXAM: 05/24/2020 COMPARISON: 05/24/2020 INDICATION: Intubation TECHNIQUE: Single frontal view of the chest is obtained. FINDINGS: The heart size is normal. The pulmonary vasculature is prominent. Diffuse increased lung markings are bilaterally. Small right pleural effusion may be present. There i s elevation of the right diaphragm elevation of the left. Endotracheal tube tip is above the bri. Nasogastric tube transverses the thorax with tip in left u pper quadrant of the abdomen. IMPRESSION: 1. Diffuse increased lung markings present bilaterally, stable from earlier exam. 2. Placement of endotracheal tube and nasogastric tube discussed above.
[2020-05-24 13:58] LABS: ABG Base Excess -4.4 mmol/L; ABG HCO3 22 mmol/L (21-25); ABG Oxygen Saturation 76.1 % (94-97); ABG PCO2 43 mmHg (35-45); ABG PH 7.31 (7.35-7.45); ABG TCO2 23 mmol/L (19-24); Allen Test Performed? Yes
[2020-05-24 14:02] LABS: ABG PO2 46 mmHg (83-108)
--- NOTE | 2020-05-24 14:30 | P.PN ---
Subjective Progress Note Date: 05/23/20 This is a pleasant 84-year-old male who lives [facility]. He is brought over the EMS for anorexia and low-grade fever along with weakness. He is somewhat confused when he is in the emergency room as he is today. Initial evaluation showed some mild hypoxia with O2 saturation 90%. Blood pressure remained stable. He is been afebrile. He was found to be in mild renal failure with a BUN of 59 creatinine 2.3, urine showed +1 ketones, and he was positive for warner virus the emergency room. This a.m., the patient is somewhat confused. Answers my questions. He has known dementia and hypothyroidism. Chest x-ray showed Covid pneumonia type picture. CT brain showed no acute intracranial hemorrhage but diffuse cerebral atrophy and mild chronic small vessel ischemic change. The patient denies any chest pains or pressures or shortness of breath this time. Repeat a.m. labs are pending. His next of kin, friend is also my patient, and was also admitted with Covid 19 pneumonia yesterday. 05/12/2020 continues on Covid regimen including Remdesivir. Renal function improving. Sitter at bedside. Maintaining O2 sats in the 90s on 2 L nasal cannula. Afebrile. 05/13/2020 continues on Remdesivir, Decadron, vitamin C, vitamin D, zinc. Maintaining O2 sats in the low 90s on 2 L nasal cannula. Follow-up troponin mildly elevated at 0.048. Bradycardic with heart rates in the high 40s to 50s, asymptomatic. EKG ordered. No chest pain. A.m. beta demetria held. Afebrile, normal WBC. 05/14/2020 maintained on Covid regimen, maintaining O2 sats in the 90s on 2 L nasal cannula. Afebrile. Labs pending. Heart rate in the 50s. Denies lightheadedness dizziness or focal deficits. Denies chest pain, palpitations. Complains of exertional shortness of breath. 05/15/2020 appetite fluctuates. Maintaining O2 sats in the 90s on 2 L nasal cannula. Asymptomatic bradycardia, hypertensive. Afebrile, normal WBC. 05/16/2020 significant decline in respiratory status. Early a.m. patient's oxygen requirements worsened, requiring 6 L nasal cannula O2 to maintain O2 sats in the 90s. Shortly thereafter rapidly declined to nonrebreather plus high flow nasal cannula. Chest x-ray stat ordered. Afebrile, labs pending. Denies chest pain, palpitations. 05/19/2020 chest x-ray reporting diffuse bilateral infiltrates consistent with pneumonia. Maintaining O2 sats in the 90s on 15 L high flow nasal cannula. Telemetry sinus bradycardia/ sinus rhythm. Renal function worsening, BUN 38, creatinine 1.26. Afebrile. 05/20/2020 continues on 15 L high flow nasal cannula, maintaining O2 sats in the 90s. BUN up to 45, Creatinine down to 1.09. Bicarb 19. Chest x-ray similar to prior. Telemetry- Sinus bradycardia. Mild hypertension. Afebrile. 05/21/20 transferred out of ICU currently on MedSurg unit. Continues on 15 L high flow. Weakness improving. Afebrile, normal WBC. Labs pending. Hypertensive. 05/22/2020 completed Remdesivir. Respiratory status worsened this morning requiring both nonrebreather with high flow 15 L nasal cannula. Staff reporting patient was 83% O2 saturation on nonrebreather along. Currently desating, unable to maintain O2 sats of 80%, but currently mildly agitated. Afebrile. Denies chest pain, palpitations. Renal function continues to improve. 05/23/20 transferred back into the ICU yesterday related to worsening hypoxic respiratory failure. Inflammatory markers trended up yesterday. Chest x-ray reporting persistent elevated right hemidiaphragm increased interstitium with similar appearance of parenchymal. Currently requiring airflow 60% in addition to nonrebreather to maintain O2 sats of 88-90%. Staff reports patient continues pulling mask off stating he does not want to do this anymore. Poor oral intake, creatinine mildly worsened up to 1.19. Receiving gentle IV fluid hydration with lactic acid normalized. Platelets trending down, currently 74. Yesterday in addition to worsening hypoxia,patient developed runs of V. tach, magnesium supplemented and currently up to 2.1. Evaluated by cardiology, recommending to continue on beta demetria. No further runs of V. tach, telemetry sinus rhythm with PVCs. Afebrile, normal WBC. 05/24/2020: 05/23/20 Patient remains in the ICU Currently requiring airflow 100% in addition to nonrebreather to maintain O2 sats of 88-90%. Staff reports patient continues pulling mask. Sitter is just outside room to help redirect. Poor oral intake, labs continue to worsen today and blood gases from this am show hypercapnia. Pulmomnolgy is following. Patient not alert curently. Objective - Vital Signs Vital signs: Vital Signs Temp 97.8 F 05/24/20 12:00 Pulse 120 H 05/24/20 14:00 Resp 28 H 05/24/20 14:00 BP 157/81 05/24/20 14:00 Pulse Ox 78 L 05/24/20 14:00 Intake & Output 05/23/20 05/24/20 05/24/20 18:59 06:59 18:59 Intake Total 750 930 525 Output Total 580 555 475 Balance 170 375 50 Weight 78.8 kg Intake: IV 750 900 375 Sodium Chloride 0.9% 1, 750 900 375 000 ml @ 75 mls/hr IV . [id number] [facility] Rx#:[id number] Intake, IV Titration 150 Amount Dextrose 5%-0.9% NaCl 1, 150 000 ml @ 75 mls/hr IV . [id number] [facility] Rx#:[id number] Oral 30 Output: Urine 580 555 475 Other: Voiding Method Indwelling Catheter Indwelling Catheter Indwelling Catheter - Exam GENERAL: lying in bed, wearing a nonrebreather plus high flow nasal cannula, mild distress, somnolent HEAD: Atraumatic, normocephalic. NECK: Supple, no JVD. LUNGS: bilateral bases diminished, scattered rhonchi throughout HEART: Regular rate and rhythm without murmurs, rubs or gallops. S1,S2 Normal. ABDOMEN: Soft, nontender, normoactive bowel sounds. No guarding. EXTREMITIES: Normal range of motion, no pitting or edema. No clubbing or cyanosis. NEUROLOGICAL: Cranial nerves II through XII grossly intact. somnolent and poorly arousable SKIN: Warm, Dry, no rashes noted. - Labs CBC & Chem 7: 05/24/20 04:48 05/24/20 04:47 Labs: Abnormal Lab Results - Last 24 Hours (Table) 05/20/20 05/24/20 05/24/20 Range/Units 04:18 04:47 04:48 WBC 11.7 H (3.8-10.6) k/uL Plt Count 69 L (150-450) k/uL Neutrophils # 10.5 H (1.3-7.7) k/uL Lymphocytes # 0.2 L (1.0-4.8) k/uL D-Dimer (<0.60) mg/L FEU ABG pH (7.35-7.45) ABG pCO2 (35-45) mmHg ABG pO2 (83-108) mmHg ABG O2 Saturation (94-97) % Chloride 110 H (98-107) mmol/L BUN 34 H (9-20) mg/dL Glucose 112 H (74-99) mg/dL Calcium 7.8 L (8.4-10.2) mg/dL Lactate Dehydrogenase 1619 H (313-618) U/L LD Isoenzymes 369 H (120-250) U/L LD 2 26 L (30-43) % LD 5 26 H (3-14) % Creatine Kinase 29 L (55-170) U/L C-Reactive Protein 318.7 H (<10.0) mg/L 05/24/20 05/24/20 05/24/20 Range/Units 04:48 05:05 13:50 WBC (3.8-10.6) k/uL Plt Count (150-450) k/uL Neutrophils # (1.3-7.7) k/uL Lymphocytes # (1.0-4.8) k/uL D-Dimer 15.75 H (<0.60) mg/L FEU ABG pH 7.47 H 7.31 L (7.35-7.45) ABG pCO2 32 L (35-45) mmHg ABG pO2 54 L* 46 L* (83-108) mmHg ABG O2 Saturation 89.8 L 76.1 L (94-97) % Chloride (98-107) mmol/L BUN (9-20) mg/dL Glucose (74-99) mg/dL Calcium (8.4-10.2) mg/dL Lactate Dehydrogenase (313-618) U/L LD Isoenzymes (120-250) U/L LD 2 (30-43) % LD 5 (3-14) % Creatine Kinase (55-170) U/L C-Reactive Protein (<10.0) mg/L Assessment and Plan (1) Pneumonia due to COVID-19 virus Current Visit: Yes Status: Acute Code(s): U07.1 - COVID-19; J12.89 - OTHER VIRAL PNEUMONIA SNOMED Code(s): 627897264303935795 (2) [place] (acute kidney injury) Current Visit: Yes Status: Acute Code(s): N17.9 - ACUTE KIDNEY FAILURE, UNSPECIFIED SNOMED Code(s): 71244521 (3) Unspecified dementia with behavioral disturbance Current Visit: Yes Status: Acute Code(s): F03.91 - UNSPECIFIED DEMENTIA WITH BEHAVIORAL DISTURBANCE SNOMED Code(s): 7828138827183 (4) Hypothyroidism, unspecified Current Visit: Yes Status: Acute Code(s): E03.9 - HYPOTHYROIDISM, UNSPECIFIED SNOMED Code(s): 66418114 (5) COVID-19 virus detected Current Visit: Yes Status: Acute Code(s): U07.1 - COVID-19 SNOMED Code(s): 9050210087611068 (6) Hypoxia Current Visit: Yes Status: Acute Code(s): R09.02 - HYPOXEMIA SNOMED Code(s): 367478811 (7) Acute hypercapnic respiratory failure Current Visit: Yes Status: Acute Code(s): J96.02 - ACUTE RESPIRATORY FAILURE WITH HYPERCAPNIA SNOMED Code(s): 842547134 Plan: wait on further recommendations from pulmonology, patient is worsening and may require intubation soon Repeat labs in a.m. Reevaluate in the next 24 hours.
[2020-05-24 19:01] LABS: Ferritin 1293.2 ng/mL (22.0-322.0)
[2020-05-24] MEDS: MELATONIN 5 MG TABLET PO SCH (19:59)
[2020-05-24] MEDS: METOPROLOL TARTRATE 5 MG/5 ML VIAL IVP SCH (21:59)
[2020-05-24] MEDS: CHLORHEXIDINE GLUCONATE 15 ML CUP MUCOUS MEM SCH (21:59)
[2020-05-25 00:15] LABS: Glucose,Whole Blood 179 mg/dL (75-99)
[2020-05-25 00:58] VITALS: TEMP 99.5
[2020-05-25] MEDS: CISATRACURIUM 200 MG in SODIUM CHLORIDE 0.9% 180 ML IV SCH ×2 (02:47→20:04)
[2020-05-25] MEDS: DEXTROSE 5%-0.9% NACL 1,000 ML IV SCH (02:47)
[2020-05-25 05:02] LABS: Basophils # (A) 0.4 k/uL (0-0.2); Basophils % (A) 2 %; Eosinophils # (A) 0.1 k/uL (0-0.7); Eosinophils % (A) 0 %; HCT 47.9 % (39.0-53.0); HGB 14.9 gm/dL (13.0-17.5); Hypochromasia Marked; Lymphocytes # (A) 0.3 k/uL (1.0-4.8); Lymphocytes % (A) 2 %; MCH 28.6 pg (25.0-35.0); MCHC 31.2 g/dL (31.0-37.0); MCV 91.7 fL (80.0-100.0); Mean Platelet Volume 11.2; Monocytes # (A) 0.9 k/uL (0-1.0); Monocytes % (A) 5 %; Neutrophils # (A) 16.1 k/uL (1.3-7.7); Neutrophils % (A) 90 %; RBC 5.22 m/uL (4.30-5.90); RDW 15.1 % (11.5-15.5)
[2020-05-25 05:04] VITALS: RESP 24
[2020-05-25 05:10] LABS: Albumin 2.4 g/dL (3.5-5.0); Calcium 7.7 mg/dL (8.4-10.2); Potassium 4.3 mmol/L (3.5-5.1); Total Bilirubin 2.9 mg/dL (0.2-1.3)
[2020-05-25 05:14] LABS: Platelet Count 68 k/uL (150-450)
[2020-05-25 05:20] LABS: ABG Base Excess -3.4 mmol/L; ABG HCO3 24 mmol/L (21-25); ABG PCO2 52 mmHg (35-45); ABG PH 7.27 (7.35-7.45); ABG TCO2 25 mmol/L (19-24); Allen Test Performed? Yes
[2020-05-25 06:42] LABS: C Reactive Protein 371.8 mg/L (<10.0)
[2020-05-25] MEDS ORDERED: NOREPINEPHRIN 4 MG-0.9% NS PMX 4 MG/250 ML ML IV ONE ×2 (08:54→13:18)
[2020-05-25] MEDS: NOREPINEPHRINE 4 MG in SODIUM CHLORIDE 0.9% 250 ML IV SCH ×6 (09:00→21:17)
[2020-05-25] MEDS ORDERED: PANTOPRAZOLE 40 MG/10 ML VIAL IVP SCH (09:00)
[2020-05-25] MEDS ORDERED: ENOXAPARIN 40 MG/0.4 ML SYRINGE SQ SCH (09:00)
--- NOTE | 2020-05-25 11:04 | P.PN ---
Subjective Progress Note Date: 05/25/20 (Critical care time 35 minutes) Principal diagnosis: Acute hypoxic history failure [place] in 19 pneumonia bilateral Acute kidney injury likely related to intravascular depletion and dehydration Hypertension hypertensive cardiovascular disease Hypothyroidism History of oral cancer 05/25/2020, patient seen eval examined during the rounds labs reviewed medications reviewed, care plan discussed with the staff at length, patient developed problems with oxygenation, hemodynamics and tachycardia drop oxygen saturation into 70s heart rate went up patient has been pulling off the BiPAP machine eventually was intubated as per family wishes to continue supportive care, required medical paralysis for prone positioning, however developed problems associated tachycardia and following desaturation was supine, patient remains tachycardic and rate is 120 to 1:30, oxygen saturation is 89% blood pressure drop down into 85/30 requiring a vasopressors currently patient is on 20 mics of levo fed drip intubated with full mechanical support, appears volume depleted, current vent setting include assist control rate of 24 breathing 24, tidal volume is 500, PEEP is 15, oxygen saturation is 100%, sats are only 75, IV fluid D5 normal saline is going on 75 mL an hour have given 500 mL bolus was given another liter bolus, , patient is currently on propofol 25 Nimbex of 2 sedated and medically paralyzed, arterial blood gases revealed pH is 7.27, pCO2 52, pO2 only 52, white blood cell count increased to 18,000, inflammatory parameters reviewed noted rising LDH C-reactive protein as well as ferritin, we will increase Lovenox to 60 every 12 to full anticoagulation, we'll give another liter of fluid bolus will prone him again, prognosis is very guarded with likelihood of recovery poor 05/24/2020, patient seen eval examined during the rounds labs reviewed medications reviewed care plan discussed, patient remains confused, remains on BiPAP / with 100% oxygen oxygen saturation is 91%, a bedside room sitter is present observing the patient so he will not take off BiPAP mask, his chest x- ray continued to show diffuse interstitial prominence patient is gently being hydrated, patient has severe protein calorie malnourishment, INR has been consulted for PICC line and TPN will be started in the meantime we'll continue IV fluids change it to D5 normal saline 75 mL an hour, arterial blood gas shows significant hypoxemia with pO2 just 5400% oxygen, BUN/creatinine slightly ge tting worse 34 and 1.25, inflammatory markers remains up 05/23/2020, patient seen eval examined during the rounds labs reviewed medications reviewed care plan discussed, patient pulled off his oxygen earlier today saturation dropped down to 20%, patient was very dusky 100% nonrebreather mask has been replaced to about 35-40 minutes to have oxygen back into low 80s range, currently patient is on 100% on rebreather mask saturation is 90%, patient has been denying nutrition as well and expressed his wishes wants to , inflammatory markers check, patient has intermittent runs of V. tach likely related to hypomagnesemia and magnesium has been replaced V. tach, not seen any more, 05/22/2020, patient seen eval examined during the rounds labs reviewed medications reviewed care plan discussed, patient has intermittent significant desaturation this morning tried to prone him but however he could not understand due to severe dementia sats were better when he was sideways, running cause further desaturation, patient is currently supine on the 100% nonrebreather mask saturation is up to 90%, remains afebrile, discussed with the respiratory bedside before transfer to the ICU will attempt BiPAP in case if he desaturated on high flow oxygen will initiate setting of 05/20 with 100% oxygen 05/21/2020, patient seen eval examined during the rounds labs reviewed medications reviewed care plan discussed, currently on 15 L high flow oxygen, moved out of the ICU on MedSurg unit, labs not done today, chest x-ray from yesterday overall stable finding 05/20/2020, patient seen eval examined during rounds labs reviewed medications reviewed care plan discussed, patient remains on supplemental oxygen, currently on 15 L high flow, oxygen saturation ranging from 85-92%, hemodynamic stable remains afebrile 05/19/2020, patient seen and evaluated examined labs reviewed medications reviewed, oxygenation somewhat improved today, patient on 100% oxygen saturation 88-89%, diffuse bilateral infiltrate noted on today's x-ray consistent with pneumonia 05/18/2020, patient seen eval examined during rounds labs reviewed medications reviewed remains on 100% nonrebreather mask, oxygen saturation is a 89-90%, pleasantly confused, labs reviewed, medications reviewed and encourage deep breathing exercise incentive spirometry prone positioning if possible 05/17/2020, patient seen eval examined during the rounds labs reviewed medications reviewed patient remains on 100% oxygen on 15 clear high flow, o xygen saturation is stable into mid 90s, and request has been initiated for convalescent plasma, patient is status post IV REMdesivir, has been on Decadron, oxygen saturation stable 97%, extensive pneumonia in the right side some patchy infiltrate on the left base 05/16/2020, patient seen eval examined during the rounds labs reviewed medications reviewed care plan discussed, denies any chest pain, however patient's respiratory status got worse early in the morning FiO2 increase from 2 L up to 15 L high flow oxygen along with nonrebreather mask with that saturation 90-94%, chest x-ray stat portable performed reviewed, showing worsening of airspace disease more so on the right side compared to left side, 05/15/2020, patient seen eval examined during rounds labs reviewed medications reviewed appetite has been poor, oxygenation however been stable for 2 L, today is the last dose of IV Remdesivir, oxygen saturation remains stable asymptomatic bradycardia however has been noted, 96% on 2 L, 05/14/2020, patient seen eval examined during the rounds labs reviewed medications reviewed, remains on therapy, on 2 L oxygen saturation have been stable, but does feel short of breath saturation is 95%, 05/13/2020, patient seen eval examined during rounds labs reviewed medications reviewed care plan discussed, patient is still complaining or shortness of breath she he is on 2 L oxygen oxygen saturation have been stable, remains afebrile with stable hemodynamics, 91% to 95% on current oxygen, patient remain on Hexadrol along with IV REMdesivir 05/12/2020, patient seen eval examined during the rounds labs reviewed medications reviewed shortness of breath still there on 2 L oxygen, confusion stable somewhat agitated but mental status have improved compared, bedside sitter is present, BUN/creatinine improved to 48 and 1.5, This is a 84-year-old male resident of a long term, came into the hospital with altered mental status, for the last 3 days patient has not been eating very weak fatigued and tired, EMS was notified brought into the hospital for further evaluation, his saturation on room air was 90%, afebrile no arrival, patient has significant history of oral cancer, 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 dementia and Alzheimer's disease, his BUN/creatinine is 59 and 2.3, warner virus PCR positive, CT head chronic old cerebral atrophic and small vascular changes were noted, chest x-ray showed bilateral multifocal patchy infiltrate right side more than the left side consistent with covid 19 pneumonia Objective - Vital Signs Vital signs: Vital Signs Temp 99.5 F 05/25/20 00:00 Pulse 129 H 05/25/20 09:30 Resp 24 05/25/20 09:30 BP 108/75 05/25/20 09:30 Pulse Ox 89 L 05/25/20 09:15 Intake & Output 05/24/20 05/25/20 05/25/20 18:59 06:59 18:59 Intake Total 054.225 0893 589.859 Output Total 645 435 55 Balance 245.956 565 534.859 Weight 78 kg Intake: IV 375 825 575 Dextrose 5%-0.9% NaCl 1, 825 75 000 ml @ 75 mls/hr IV . [id number] [facility] Rx#:[id number] Sodium Chloride 0.9% 1, 375 000 ml @ 75 mls/hr IV . [id number] [facility] Rx#:[id number] fluids 500 Intake, IV Titration 515.956 175 14.859 Amount Dextrose 5%-0.9% NaCl 1, 450 75 000 ml @ 75 mls/hr IV . [id number] [facility] Rx#:[id number] Norepinephrine 4 mg In 14.859 Sodium Chloride 0.9% 250 ml @ 0.05 MCG/KG/MIN 14. 859 mls/hr IV .Q17H6M [facility] Rx#:[id number] propofoL 1,000 mg In 65.956 100 Empty Bag 1 bag @ Titrate IV .Q0M [facility] Rx#: [id number] Output: Urine 645 435 55 Other: Voiding Method Indwelling Catheter Indwelling Catheter - Exam - Constitutional General appearance: Sedated medically paralyzed on 100% oxygen - EENT Eyes: PERRLA Ears: bilateral: normal - Neck Carotids: bilateral: upstroke normal Thyroid: bilateral: normal size - Respiratory Respiratory: bilateral: diminished - Cardiovascular Rhythm: regular Heart sounds: normal: S1, S2 - Gastrointestinal General gastrointestinal: normal bowel sounds, soft - Integumentary Integumentary: decreased turgor - Neurologic Sedated medically paralyzed - Labs CBC & Chem 7: 05/25/20 03:57 05/25/20 03:57 Labs: Abnormal Lab Results - Last 24 Hours (Table) 05/24/20 05/24/20 05/25/20 Range/Units 04:47 13:50 00:13 WBC (3.8-10.6) k/uL Plt Count (150-450) k/uL Neutrophils # (1.3-7.7) k/uL Lymphocytes # (1.0-4.8) k/uL Basophils # (0-0.2) k/uL ABG pH 7.31 L (7.35-7.45) ABG pCO2 (35-45) mmHg ABG pO2 46 L* (83-108) mmHg ABG Total CO2 (19-24) mmol/L ABG O2 Saturation 76.1 L (94-97) % Chloride (98-107) mmol/L BUN (9-20) mg/dL Creatinine (0.66-1.25) mg/dL Glucose (74-99) mg/dL POC Glucose (mg/dL) 179 H (75-99) mg/dL Calcium (8.4-10.2) mg/dL Ferritin 1293.2 H (22.0-322.0) ng/mL Total Bilirubin (0.2-1.3) mg/dL Alkaline Phosphatase (38-126) U/L Lactate Dehydrogenase (313-618) U/L C-Reactive Protein (<10.0) mg/L Total Protein (6.3-8.2) g/dL Albumin (3.5-5.0) g/dL 05/25/20 05/25/20 05/25/20 Range/Units 03:57 03:57 05:12 WBC 18.0 H (3.8-10.6) k/uL Plt Count 68 L (150-450) k/uL Neutrophils # 16.1 H (1.3-7.7) k/uL Lymphocytes # 0.3 L (1.0-4.8) k/uL Basophils # 0.4 H (0-0.2) k/uL ABG pH 7.27 L (7.35-7.45) ABG pCO2 52 H (35-45) mmHg ABG pO2 52 L* (83-108) mmHg ABG Total CO2 25 H (19-24) mmol/L ABG O2 Saturation 83.0 L (94-97) % Chloride 111 H (98-107) mmol/L BUN 39 H (9-20) mg/dL Creatinine 1.34 H (0.66-1.25) mg/dL Glucose 176 H (74-99) mg/dL POC Glucose (mg/dL) (75-99) mg/dL Calcium 7.7 L (8.4-10.2) mg/dL Ferritin (22.0-322.0) ng/mL Total Bilirubin 2.9 H (0.2-1.3) mg/dL Alkaline Phosphatase 151 H (38-126) U/L Lactate Dehydrogenase 1777 H (313-618) U/L C-Reactive Protein 371.8 H (<10.0) mg/L Total Protein 5.0 L (6.3-8.2) g/dL Albumin 2.4 L (3.5-5.0) g/dL Assessment and Plan Assessment: ARDS related to Covid 19 pneumonia Septic shock Acute hypoxic history failure Covid19 pneumonia bilateral with cytokine jimi Intermittent episodes of V. tach and PVCs likely due to hypo-magnesium as well as severe hypoxia Acute kidney injury likely related to intravascular depletion and dehydratio n/acute tubular necrosis however renal functions have been stable Hypertension hypertensive cardiovascular disease Hypothyroidism History of oral cancer Advanced dementia and Alzheimer's disease Plan: Continue sedation and medical paralysis Vasopressors as needed Increase Lovenox to 60 mg subcu every 12 Prone positioning PICC line and TPN IV Decadron IV Remdesivir for 5 days patient finished Status post convalescent plasma Will keep the fluid balance even or negative side Monitor renal functions closely Anticoagulation with Lovenox escalated dose to 60 mg subcu every 12 Monitor and observe inflammatory parameters Zinc vitamin C and vitamin D supplements Further recommendations pending plan of care as per clinical response of patient Prognosis very guarded with poor likelihood of recovery especially with current situation and hemodynamic instability Time with Patient: Greater than 30
[2020-05-25] MEDS: LEVOTHYROXINE 50 MCG TAB PO SCH (11:20)
[2020-05-25] MEDS: DONEPEZIL 10 MG TAB PO SCH (11:21)
[2020-05-25] MEDS: CYANOCOBALAMIN 500 MCG TAB PO SCH (11:21)
[2020-05-25] MEDS: MEMANTINE 10 MG TAB PO SCH ×2 (11:21→21:13)
[2020-05-25] MEDS: LORATADINE 10 MG TAB PO SCH (11:21)
[2020-05-25] MEDS: ASCORBIC ACID 500 MG TAB PO SCH (11:21)
[2020-05-25] MEDS: METOPROLOL TARTRATE 5 MG/5 ML VIAL IVP SCH ×2 (11:21→21:00)
[2020-05-25] MEDS: amLODIPine 10 MG TAB PO SCH (11:21)
[2020-05-25] MEDS: CHOLECALCIFEROL 400 UNIT TAB PO SCH (11:22)
[2020-05-25] MEDS: ZINC SULFATE 220 MG CAP PO SCH (11:22)
[2020-05-25] MEDS: SODIUM CHLORIDE 0.9% 1,000 ML IV SCH ×2 (11:30→19:03)
--- NOTE | 2020-05-25 13:54 | P.PN ---
Subjective Progress Note Date: 05/23/20 This is a pleasant 84-year-old male who lives [facility]. He is brought over the EMS for anorexia and low-grade fever along with weakness. He is somewhat confused when he is in the emergency room as he is today. Initial evaluation showed some mild hypoxia with O2 saturation 90%. Blood pressure remained stable. He is been afebrile. He was found to be in mild renal failure with a BUN of 59 creatinine 2.3, urine showed +1 ketones, and he was positive for warner virus the emergency room. This a.m., the patient is somewhat confused. Answers my questions. He has known dementia and hypothyroidism. Chest x-ray showed Covid pneumonia type picture. CT brain showed no acute intracranial hemorrhage but diffuse cerebral atrophy and mild chronic small vessel ischemic change. The patient denies any chest pains or pressures or shortness of breath this time. Repeat a.m. labs are pending. His next of kin, friend is also my patient, and was also admitted with Covid 19 pneumonia yesterday. 05/12/2020 continues on Covid regimen including Remdesivir. Renal function improving. Sitter at bedside. Maintaining O2 sats in the 90s on 2 L nasal cannula. Afebrile. 05/13/2020 continues on Remdesivir, Decadron, vitamin C, vitamin D, zinc. Maintaining O2 sats in the low 90s on 2 L nasal cannula. Follow-up troponin mildly elevated at 0.048. Bradycardic with heart rates in the high 40s to 50s, asymptomatic. EKG ordered. No chest pain. A.m. beta demetria held. Afebrile, normal WBC. 05/14/2020 maintained on Covid regimen, maintaining O2 sats in the 90s on 2 L nasal cannula. Afebrile. Labs pending. Heart rate in the 50s. Denies lightheadedness dizziness or focal deficits. Denies chest pain, palpitations. Complains of exertional shortness of breath. 05/15/2020 appetite fluctuates. Maintaining O2 sats in the 90s on 2 L nasal cannula. Asymptomatic bradycardia, hypertensive. Afebrile, normal WBC. 05/16/2020 significant decline in respiratory status. Early a.m. patient's oxygen requirements worsened, requiring 6 L nasal cannula O2 to maintain O2 sats in the 90s. Shortly thereafter rapidly declined to nonrebreather plus high flow nasal cannula. Chest x-ray stat ordered. Afebrile, labs pending. Denies chest pain, palpitations. 05/19/2020 chest x-ray reporting diffuse bilateral infiltrates consistent with pneumonia. Maintaining O2 sats in the 90s on 15 L high flow nasal cannula. Telemetry sinus bradycardia/ sinus rhythm. Renal function worsening, BUN 38, creatinine 1.26. Afebrile. 05/20/2020 continues on 15 L high flow nasal cannula, maintaining O2 sats in the 90s. BUN up to 45, Creatinine down to 1.09. Bicarb 19. Chest x-ray similar to prior. Telemetry- Sinus bradycardia. Mild hypertension. Afebrile. 05/21/20 transferred out of ICU currently on MedSurg unit. Continues on 15 L high flow. Weakness improving. Afebrile, normal WBC. Labs pending. Hypertensive. 05/22/2020 completed Remdesivir. Respiratory status worsened this morning requiring both nonrebreather with high flow 15 L nasal cannula. Staff reporting patient was 83% O2 saturation on nonrebreather along. Currently desating, unable to maintain O2 sats of 80%, but currently mildly agitated. Afebrile. Denies chest pain, palpitations. Renal function continues to improve. 05/23/20 transferred back into the ICU yesterday related to worsening hypoxic respiratory failure. Inflammatory markers trended up yesterday. Chest x-ray reporting persistent elevated right hemidiaphragm increased interstitium with similar appearance of parenchymal. Currently requiring airflow 60% in addition to nonrebreather to maintain O2 sats of 88-90%. Staff reports patient continues pulling mask off stating he does not want to do this anymore. Poor oral intake, creatinine mildly worsened up to 1.19. Receiving gentle IV fluid hydration with lactic acid normalized. Platelets trending down, currently 74. Yesterday in addition to worsening hypoxia,patient developed runs of V. tach, magnesium supplemented and currently up to 2.1. Evaluated by cardiology, recommending to continue on beta demetria. No further runs of V. tach, telemetry sinus rhythm with PVCs. Afebrile, normal WBC. 05/24/2020: 05/23/20 Patient remains in the ICU Currently requiring airflow 100% in addition to nonrebreather to maintain O2 sats of 88-90%. Staff reports patient continues pulling mask. Sitter is just outside room to help redirect. Poor oral intake, labs continue to worsen today and blood gases from this am show hypercapnia. Pulmomnolgy is following. Patient not alert curently. Patient is now intubited and sedated. Yesterday he became More tachypnic. This morning he has become tachycardic. Critical care is following. Hes also now hypotensive. Hes been started on levophed. I discussed his case at length with his power of county attorney (SON) yesterday and they wish to proceed with the full code measures at this time.Currently O2 saturation 78% on 100% oxygen mechanically ventilated. His heart rate is the 120s. Blood pressure is 80s systolic with pressors. He is developed to leukocytosis and thrombocytopenia. Blood gases show a slightly worsening of CO2. Objective - Vital Signs Vital signs: Vital Signs Temp 99.5 F 05/25/20 00:00 Pulse 117 H 05/25/20 11:15 Resp 24 05/25/20 11:15 BP 88/62 05/25/20 11:15 Pulse Ox 78 L 05/25/20 11:00 Intake & Output 05/24/20 05/25/20 05/25/20 18:59 06:59 18:59 Intake Total 851.936 0985 1150.781 Output Total 645 435 85 Balance 245.420 037 7907.781 Weight 78 kg Intake: IV 200 398 0829 Dextrose 5%-0.9% NaCl 1, 825 75 000 ml @ 75 mls/hr IV . [id number] [facility] Rx#:[id number] Sodium Chloride 0.9% 1, 375 000 ml @ 75 mls/hr IV . [id number] [facility] Rx#:[id number] fluids 1000 Intake, IV Titration 515.956 175 75.781 Amount Dextrose 5%-0.9% NaCl 1, 450 75 000 ml @ 75 mls/hr IV . [id number] [facility] Rx#:[id number] Norepinephrine 4 mg In 75.781 Sodium Chloride 0.9% 250 ml @ 0.05 MCG/KG/MIN 14. 859 mls/hr IV .Q17H6M [facility] Rx#:[id number] propofoL 1,000 mg In 65.956 100 Empty Bag 1 bag @ Titrate IV .Q0M [facility] Rx#: [id number] Output: Urine 645 435 85 Other: Voiding Method Indwelling Catheter Indwelling Catheter - Exam GENERAL: lying in bed, supine and HOB eleveated, Intubated, Sedated (he did not tolerate PRONE positioning earlier HEAD: Atraumatic, normocephalic. NECK: Supple, no JVD. LUNGS: bilateral bases diminished, scattered rhonchi throughout, mech ventilated HEART: Regular rate and rhythm without murmurs, rubs or gallops. S1,S2 Normal. ABDOMEN: Soft, nontender,hypooactive bowel sounds. No guarding. EXTREMITIES: Normal range of motion, no pitting or edema. No clubbing or cyanosis. NEUROLOGICAL:deferred SKIN: Warm, Dry, no rashes noted. - Labs CBC & Chem 7: 05/25/20 03:57 05/25/20 03:57 Labs: Abnormal Lab Results - Last 24 Hours (Table) 05/24/20 05/24/20 05/25/20 Range/Units 04:47 13:50 00:13 WBC (3.8-10.6) k/uL Plt Count (150-450) k/uL Neutrophils # (1.3-7.7) k/uL Lymphocytes # (1.0-4.8) k/uL Basophils # (0-0.2) k/uL ABG pH 7.31 L (7.35-7.45) ABG pCO2 (35-45) mmHg ABG pO2 46 L* (83-108) mmHg ABG Total CO2 (19-24) mmol/L ABG O2 Saturation 76.1 L (94-97) % Chloride (98-107) mmol/L BUN (9-20) mg/dL Creatinine (0.66-1.25) mg/dL Glucose (74-99) mg/dL POC Glucose (mg/dL) 179 H (75-99) mg/dL Calcium (8.4-10.2) mg/dL Ferritin 1293.2 H (22.0-322.0) ng/mL Total Bilirubin (0.2-1.3) mg/dL Alkaline Phosphatase (38-126) U/L Lactate Dehydrogenase (313-618) U/L C-Reactive Protein (<10.0) mg/L Total Protein (6.3-8.2) g/dL Albumin (3.5-5.0) g/dL 05/25/20 05/25/20 05/25/20 Range/Units 03:57 03:57 05:12 WBC 18.0 H (3.8-10.6) k/uL Plt Count 68 L (150-450) k/uL Neutrophils # 16.1 H (1.3-7.7) k/uL Lymphocytes # 0.3 L (1.0-4.8) k/uL Basophils # 0.4 H (0-0.2) k/uL ABG pH 7.27 L (7.35-7.45) ABG pCO2 52 H (35-45) mmHg ABG pO2 52 L* (83-108) mmHg ABG Total CO2 25 H (19-24) mmol/L ABG O2 Saturation 83.0 L (94-97) % Chloride 111 H (98-107) mmol/L BUN 39 H (9-20) mg/dL Creatinine 1.34 H (0.66-1.25) mg/dL Glucose 176 H (74-99) mg/dL POC Glucose (mg/dL) (75-99) mg/dL Calcium 7.7 L (8.4-10.2) mg/dL Ferritin 3389.0 H (22.0-322.0) ng/mL Total Bilirubin 2.9 H (0.2-1.3) mg/dL Alkaline Phosphatase 151 H (38-126) U/L Lactate Dehydrogenase 1777 H (313-618) U/L C-Reactive Protein 371.8 H (<10.0) mg/L Total Protein 5.0 L (6.3-8.2) g/dL Albumin 2.4 L (3.5-5.0) g/dL Assessment and Plan (1) Pneumonia due to COVID-19 virus Current Visit: Yes Status: Acute Code(s): U07.1 - COVID-19; J12.89 - OTHER VIRAL PNEUMONIA SNOMED Code(s): 194231763205044404 (2) [place] (acute kidney injury) Current Visit: Yes Status: Acute Code(s): N17.9 - ACUTE KIDNEY FAILURE, UNSPECIFIED SNOMED Code(s): 22573037 (3) Unspecified dementia with behavioral disturbance Current Visit: Yes Status: Acute Code(s): F03.91 - UNSPECIFIED DEMENTIA WITH BEHAVIORAL DISTURBANCE SNOMED Code(s): 2146449353122 (4) Hypothyroidism, unspecified Current Visit: Yes Status: Acute Code(s): E03.9 - HYPOTHYROIDISM, UNSPECIFIED SNOMED Code(s): 93043701 (5) COVID-19 virus detected Current Visit: Yes Status: Acute Code(s): U07.1 - COVID-19 SNOMED Code(s): 1167316516387722 (6) Hypoxia Current Visit: Yes Status: Acute Code(s): R09.02 - HYPOXEMIA SNOMED Code(s): 884577089 (7) Acute hypercapnic respiratory failure Current Visit: Yes Status: Acute Code(s): J96.02 - ACUTE RESPIRATORY FAILURE WITH HYPERCAPNIA SNOMED Code(s): 377543836 Plan: wait on further recommendations from pulmonology/critical care, Repeat labs in a.m. Reevaluate in the next 24 hours. condition is serious and he may succumb to COVID19
[2020-05-25] MEDS: CHLORHEXIDINE GLUCONATE 15 ML CUP MUCOUS MEM SCH ×2 (14:36→19:55)
[2020-05-25] MEDS: ENOXAPARIN 60 MG/0.6 ML SYRINGE SQ SCH ×2 (14:40→21:13)
[2020-05-25] MEDS ORDERED: fentaNYL (PF) 1,000 MCG in SODIUM CHLORIDE 0.9% 80 ML IV SCH (15:00)
--- NOTE | 2020-05-25 22:23 | XR ---
EXAMINATION TYPE: XR chest 1V portable DATE OF EXAM: 05/25/2020 COMPARISON: Yesterday HISTORY: Check tube placement TECHNIQUE: Renal view FINDINGS: Endotracheal tube is 5.5 cm from the bri. There is nasogastric tube in the stomach. Ther e is large right-sided pneumothorax and shift of the heart and mediastinum slightly to the left side. 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 Left lung shows some diffuse interstitial an d airspace infiltrate. There are chest leads. IMPRESSION: There is a right-sided tension pneumothorax which is new compared to yesterday. Pulmonary interstitial infiltrates could relate to RDS. This exam was discussed with the patient's nurse Nirali at 10:20 PM.
[2020-05-25 23:03] VITALS: BP 127/77; PULSE 82
[2020-05-25] MEDS ORDERED: MORPHINE SULFATE 2 MG/ML SYRINGE IV PRN (23:16)
[2020-05-25] MEDS: MELATONIN 5 MG TABLET PO SCH (23:20)
[2020-05-26 08:39] LABS: ABG PO2 52 mmHg (83-108)
--- NOTE | 2020-05-28 11:33 | CDI ---
Documentation Clarification Form Date: 05/28/2020 11:10:37 AM From: Martha HazelLeslieMACO, CCDS Admit Date: 05/10/2020 01:52:00 PM Patient Name: Lio Yanes Visit Number: [id number] Discharge Date: 05/26/2020 12:51:00 AM ATTENTION: The Clinical Documentation Specialists (CDI) and [facility] Coding Staff appreciate your assistance in clarifying documentation. Please respond to the clarification below the line at the bottom and electronically sign. The CDI & [facility] Coding staff will review the response and follow-up if needed. Please note: Queries are made part of the Legal Health Record. If you have any questions, please contact the author of this message via ITS. Dr. Mani Garcia: A right sided tension pneumothorax is documented in the 05/25 CXR, the patient was intubated on 05/24. History/Risk Factors: Mouth Cancer, Hyperlipidemia, Hypertension, Hypothyroid, Lives in an Assisted Living Facility. Clinical Indicators: Presented to the ED via EMS with weakness, not eating as usual and altered mental status changes. Tested positive for COVID 19, admitted with altered mental status, acute hypoxia, DAKOTA & COVID 19. On 05/25 the patient was noted to be pulling off his BiPAP, BP & PO dropped, given Vasopressors & Intubated. The patient on 05/26. VS 05/25: P 114 - 126^ (weak), R 24, BP 89/73, PO 82 on 100% vent. 05/25 CXR: There is a right sided tension pneumothorax and shift of the heart and mediastinum slightly to the left side. 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 Pulmonary interstitial infiltrates could relate to RDS. Treatment 05/25: IV Nimbex, IV Levophed, Lovenox sq, IV fluid 1,000 mls @ 150 150 mls/hr q6, IV Fentanyl, IV Morphine. Intubated 05/24, remained on vent. In your professional opinion, can you please clarify the significance of the documented tension pneumothorax: Right Side Tension Pneumothorax is an: Other, please specify ___COMPLICATION OF COVID 19 pNEUMONIA Last Revision: September 2017) MTDD
--- NOTE | 2020-05-28 11:47 | CDI ---
Documentation Clarification Form Date: 05/28/2020 11:33:00 AM From: Martha HazelLeslieMACO hull, CCDS Admit Date: 05/10/2020 01:52:00 PM Patient Name: Lio Yanes Visit Number: [id number] Discharge Date: 05/26/2020 12:51:00 AM ATTENTION: The Clinical Documentation Specialists (CDI) and [facility] Coding Staff appreciate your assistance in clarifying documentation. Please respond to the clarification below the line at the bottom and electronically sign. The CDI & [facility] Coding staff will review the response and follow-up if needed. Please note: Queries are made part of the Legal Health Record. If you have any questions, please contact the author of this message via ITS. Dr. Mani Garcia: Cytokine Storm is documented in the Pulmonary/Critical Care Progress Notes beginning on 05/16 and subsequent Progress Notes without further specificity. History/Risk Factors: Mouth Cancer, Hyperlipidemia, Hypertension, Hypothyroid, Lives in an Assisted Living Facility. Clinical Indicators: Presented to the ED via EMS with weakness, not eating as usual and altered mental status changes. Tested positive for COVID 19, admitted with altered mental status, acute hypoxia, DAKOTA & COVID 19. Developed ARDS, Severe Sepsis with Septic Shock and V Tach. On 05/25 the patient was noted to be pulling off his BiPAP, BP & PO dropped, given Vasopressors & Intubated. The patient on 05/26. VS 05/25: P 114 - 126^ (weak), R 24, BP 89/73, PO 82 on 100% vent. LAB 05/16: Neut 8.4^, Lymph 0.2*, Cl 111^, CO2 19*, BUN 32^, Cr 1.30^, Glucose 111^, Calcium 8.1*. 05/16 CXR: Correlate for pneumonia. 05/22 CXR: Patchy bilateral infiltrates with small right pleural effusions. 05/25 CXR: There is a right sided tension pneumothorax and shift of the heart and mediastinum slightly to the left side. 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 Pulmonary interstitial infiltrates could relate to RDS. Treatment 05/16: IM Haldol 05/25: IV Nimbex, IV Levophed, Lovenox sq, IV fluid 1,000 mls @ 150 150 mls/hr q6, IV Fentanyl, IV Morphine. Intubated 05/24, remained on vent. In your professional opinion, can you please specify the grade of the Cytokine Storm, if known: Cytokine Storm: Unable to determine (Last Revision: September 2017) MTDD
--- NOTE | 2020-05-28 12:05 | CDI ---
Documentation Clarification Form Date: 05/28/2020 11:48:27 AM From: Martha HazelLeslieMACO, CCDS Admit Date: 05/10/2020 01:52:00 PM Patient Name: Lio Yanes Visit Number: [id number] Discharge Date: 05/26/2020 12:51:00 AM ATTENTION: The Clinical Documentation Specialists (CDI) and [facility] Coding Staff appreciate your assistance in clarifying documentation. Please respond to the clarification below the line at the bottom and electronically sign. The CDI & [facility] Coding staff will review the response and follow-up if needed. Please note: Queries are made part of the Legal Health Record. If you have any questions, please contact the author of this message via ITS. Dr. Mani Garcia: The patient was admitted from an Assisted Living Facility on 05/10 via EMS with altered mental status, not eating as usual and found to have + COVID pneumonia. Altered mental status is documented in the 05/10 ED note, the 05/11 Pulmonary Consult and in subsequent Progress Notes. Confusion is documented in the Pulmonary/Critical Care Progress Notes beginning on 05/12. History/Risk Factors: Mouth Cancer, Hyperlipidemia, Hypertension, Hypothyroid, Alzheimer's Dementia with behavioral disturbances, Lives in an Assisted Living Facility. Clinical Indicators: Presented to the ED via EMS with weakness, not eating as usual and altered mental status changes. Tested positive for COVID 19, admitted with altered mental status, acute hypoxia, DAKOTA & COVID 19. Developed ARDS, Severe Sepsis with Septic Shock and V Tach. On 05/25 the patient was noted to be pulling off his BiPAP, BP & PO dropped, given Vasopressors & Intubated. The patient on 05/26. VS 05/10: T 96.9*, P 80, R 16, BP 173/83, PO 90 RA - 94 2Lnc. LAB 05/10: Lymph 0.8*, APTT 20.9*, CO2 20*, BUN 59^, Cr 2.30^, Total Bili 1.7^, Alk Phos 132^. UA: clear, 1+ protein, 1+ ketones, Small blood Toxicology: negative COVID 19: Detected* RAD: 05/10 CT Brain: negative for acute changes. Treatment 05/10: IV fluid 500 mls @ 999 mls/hr, po Hexadrol, Lovenox sq, IV Remdesivir, po Namenda, Vit C, Orazinc, Vit D3 05/13: po Norvasc 05/16: IM Haldol 05/24: IV Ativan, IV Propofol. 05/25: IV Nimbex, IV Levophed, Lovenox sq, IV fluid 1,000 mls @ 150 150 mls/hr q6, IV Fentanyl, IV Morphine. Intubated 05/24, remained on vent. In your professional opinion, can you please further clarify the patient's confusion: Confusion, due to: o Please specify: __Metabolic Encephalopathy Confusion related to Alzheimer's Dementia Encephalopathy, please specify type: o Metabolic Encephalopathy (Last Revision: September 2017) MTDD
--- NOTE | 2020-06-25 13:17 | P.DS ---
Providers Date of admission: 05/10/20 13:52 Expected date of discharge: 05/25/20 Attending physician: Cali Cadena Consults: 05/10/20 14:27 Consult Physician Urgent Consulting Provider: Mani Garcia Consult Reason/Comments: covid pna Do you want consulting provider notified?: Yes 05/22/20 14:30 Consult Physician Urgent Consulting Provider: Davian Salcedo Consult Reason/Comments: Runs of [place] Do you want consulting provider notified?: Yes Primary care physician: Cali Cadena - Discharge Diagnosis(es) (1) DAKOTA (acute kidney injury) Status: Acute (2) Altered mental status Status: Acute (3) COVID-19 virus detected Status: Acute (4) Hypothyroidism, unspecified Status: Acute (5) Hypoxia Status: Acute (6) Pneumonia due to COVID-19 virus Status: Acute (7) Unspecified dementia with behavioral disturbance Status: Acute Hospital Course: Note was written by Dr. Diamond on 05/25/2020 At approximately 1345 patient was intubated and sedated Referred to Dr. Diamond note at the above-stated date and time Assessment: Patient 4:59 am on 05/25/2020 Patient Condition at Discharge: Good Plan - Discharge Summary New Discharge Prescriptions: No Action Omeprazole 40 mg PO DAILY Memantine HCl/Donepezil HCl [Namzaric 28 mg-10 mg Capsule] 1 cap PO DAILY Metoprolol Tartrate [Lopressor] 25 mg PO BID Levothyroxine Sodium [Synthroid] 50 mcg PO DAILY Loratadine [Claritin] 10 mg PO DAILY Cyanocobalamin (Vitamin B-12) [Vitamin B-12] 1,000 mcg PO DAILY Discharge Medication List Cyanocobalamin (Vitamin B-12) [Vitamin B-12] 1,000 mcg PO DAILY 05/10/20 [History] Levothyroxine Sodium [Synthroid] 50 mcg PO DAILY 05/10/20 [History] Loratadine [Claritin] 10 mg PO DAILY 05/10/20 [History] Memantine HCl/Donepezil HCl [Namzaric 28 mg-10 mg Capsule] 1 cap PO DAILY 05/10/20 [History] Metoprolol Tartrate [Lopressor] 25 mg PO BID 05/10/20 [History] Omeprazole 40 mg PO DAILY 05/10/20 [History] Follow up Appointment(s)/Referral(s): Cali Cadena Jr, [Primary Care Provider] - 1-2 days Discharge Disposition: - Preliminary Cause of Preliminary Cause of : Respiratory failure, sepsis, covid 19 pneumonia
== END 2020-05-26 00:51 | disposition expired | DRG 208 ==
LOC: EC 10:54 → 4SSUR 13:52 → 6NMEDSUR 18:22 → 2SICU 05-16 19:41 → 4SSUR 05-20 16:20 → 2SICU 05-22 13:36
PROVIDERS: ADMIT Family Medicine; ATTEND Family Medicine
PROC: XW033E5 Introduction of Remdesivir Anti-infective into Peripheral Vein, Percutaneous Approach, New Technology Group 5 (ICD-10-PCS; 2020-05-11)
PROC: XW13325 Transfusion of Convalescent Plasma (Nonautologous) into Peripheral Vein, Percutaneous Approach, New Technology Group 5 (ICD-10-PCS; 2020-05-17)
PROC: 5A09457 Assistance with Respiratory Ventilation, 24-96 Consecutive Hours, Continuous Positive Airway Pressure (ICD-10-PCS; 2020-05-22)
PROC: 5A1945Z Respiratory Ventilation, 24-96 Consecutive Hours (ICD-10-PCS; principal; 2020-05-24)
PROC: 0D9670Z Drainage of Stomach with Drainage Device, Via Natural or Artificial Opening (ICD-10-PCS; 2020-05-24)
PROC: 0BH17EZ Insertion of Endotracheal Airway into Trachea, Via Natural or Artificial Opening (ICD-10-PCS; 2020-05-24)
PROC: 3E033XZ Introduction of Vasopressor into Peripheral Vein, Percutaneous Approach (ICD-10-PCS; 2020-05-25)
DX: U07.1 COVID-19 (principal); N17.0 Acute kidney failure with tubular necrosis; A41.89 Other specified sepsis; R65.21 Severe sepsis with septic shock; J93.0 Spontaneous tension pneumothorax; J80 Acute respiratory distress syndrome; G93.41 Metabolic encephalopathy; E43 Unspecified severe protein-calorie malnutrition; J12.89 Other viral pneumonia; I47.2 Ventricular tachycardia; F02.81 Dementia in other diseases classified elsewhere, unspecified severity, with behavioral disturbance; D69.6 Thrombocytopenia, unspecified; G30.9 Alzheimer's disease, unspecified; Z66 Do not resuscitate; Z51.5 Encounter for palliative care; D89.839 Cytokine release syndrome, grade unspecified; I11.9 Hypertensive heart disease without heart failure; Z68.21 Body mass index [BMI] 21.0-21.9, adult; I49.3 Ventricular premature depolarization; E86.0 Dehydration; E78.5 Hyperlipidemia, unspecified; E83.42 Hypomagnesemia; E03.9 Hypothyroidism, unspecified; R77.8 Other specified abnormalities of plasma proteins; R32 Unspecified urinary incontinence; Z79.890 Hormone replacement therapy; Z79.899 Other long term (current) drug therapy; Z85.819 Personal history of malignant neoplasm of unspecified site of lip, oral cavity, and pharynx; Z87.39 Personal history of other diseases of the musculoskeletal system and connective tissue; Z87.19 Personal history of other diseases of the digestive system; Z98.42 Cataract extraction status, left eye; Z98.41 Cataract extraction status, right eye; Z98.890 Other specified postprocedural states; Z88.0 Allergy status to penicillin
CPT/HCPCS: 36415; 36600; 70450; 71045; 71046; 80048; 80053; 80306; 81001; 82550; 82728; 82805; 83605; 83615; 83625; 83735; 83880; 84484; 85025; 85027; 85379; 85384; 85610; 85730; 86140; 86850; 86900; 86901; 87635; 93005; 93306; 94002; 94003; 94660; 96360; 96361; 99285